=== PATIENT | female | born 1980 | race Two or more races ===

== ENCOUNTER → 2019-12-09 10:14 | Outpatient (BNVA) | payer OTHER, SELFPAY | PROVIDERS: Family Provider Nurse Practitioner; PCP Nurse Practitioner; Visit Provider Nurse Practitioner | DX: J30.89 Other allergic rhinitis (principal); G43.519 Persistent migraine aura without cerebral infarction, intractable, without status migrainosus | CPT/HCPCS: 80053; 84443 ==

== ENCOUNTER → 2019-12-19 07:29 | Outpatient (BNVA) | payer OTHER, SELFPAY | PROVIDERS: Family Provider Nurse Practitioner; PCP Nurse Practitioner; Visit Provider Nurse Practitioner Psychiatric/Mental Health | DX: F33.1 Major depressive disorder, recurrent, moderate (principal); F43.12 Post-traumatic stress disorder, chronic; F41.0 Panic disorder [episodic paroxysmal anxiety] | CPT/HCPCS: 99214 ==

== ENCOUNTER → 2020-01-14 07:40 | Outpatient (BNVA) | payer OTHER, SELFPAY | PROVIDERS: Family Provider Nurse Practitioner; PCP Nurse Practitioner; Visit Provider Nurse Practitioner Psychiatric/Mental Health | DX: F33.1 Major depressive disorder, recurrent, moderate (principal); F43.12 Post-traumatic stress disorder, chronic; F41.0 Panic disorder [episodic paroxysmal anxiety] | CPT/HCPCS: 99214 ==

== ENCOUNTER 2020-03-02 13:05 | Emergency (ER) | payer OTHER, SELFPAY ==
[2020-03-02 13:06] VITALS: BP 116/40; PULSE 74; RESP 18; TEMP 37.1; O2SAT 99; BMI 24.6
--- NOTE | 2020-03-02 13:19 | CTR_ITS ---
PROCEDURE INFORMATION: Exam: CT Head Without Contrast Exam date and time: 03/02/2020 1:21 PM Age: 40 years old Clinical indication: Pain; Headache; Patient HX: Headache x 5 days; Additional info: LANDA x 5 ays TECHNIQUE: Imaging protocol: Computed tomography of the head without contrast. Radiation optimization: All CT scans at this facility use at least one of these dose optimization techniques: automated exposure control; mA and/or kV adjustment per patient size (includes targeted exams where dose is matched to clinical indication); or iterative reconstruction. COMPARISON: CT head wo con* [id number] 03/15/2018 12:14 PM RADIATION DOSE METRICS: Total DLP (mGy-cm): 741.24 FINDINGS: Brain: Normal. No hemorrhage. Unremarkable white matter. No mass effect. Ventricles: No hydrocephalus or evidence of increased intracranial pressure. Bones/joints: Unremarkable. No acute fracture. Sinuses: Hypoplastic bilateral frontal sinuses, normal variant. Mastoid air cells: Visualized mastoid air cells are well aerated. Soft tissues: Unremarkable. CT/CT head wo con* [id number] IMPRESSION: No acute intracranial abnormality identified. Radiation Dose CTDIVOL = (mGy): DLP = 741.24 (mGy-cm)
--- NOTE | 2020-03-02 13:20 | ED_ITS ---
HPI - Headache General: Chief Complaint: Headache Stated Complaint: LANDA x5 days Time Seen by Provider: 03/02/20 13:06 History of Present Illness: HPI Narrative: Patient arrived via ambulance from [facility], [place] with a history of headache x5 days as nonrelenting. Patient has history of migraines which she is on Topamax for which usually works. Patient says she has been nauseous and balance problems since his headache started. Denies photophobia denies other problems MD elicited complaint: headache Pertinent past history: migraines Onset (ago): day(s) Onset description: suddenly Location: frontal Severity: severe Quality & Timing: throbbing and different than previous headaches Exacerbating factors: none Relieving factors: rest Context: occurred at rest Associated symptoms: Reports no associated symptoms and nausea; Deny chest pain, fever(s), rash or vomiting Treatments prior to arrival: acetaminophen and ibuprofen Review of Systems Const: Denies: fever(s), chills or body aches Eyes: Denies: change in vision or blurry vision ENMT: Denies: throat pain or nasal congestion Card: Denies: chest pain or dyspnea on exertion Resp: Denies: dyspnea, productive cough or non-productive cough GI: Reports: nausea; Denies: abdominal pain or vomiting Musc: Denies: extremity pain Skin/Breast: Denies: rash Neuro: Reports: headache(s) Psych: Denies: anxiety or depression Delbert/Lymph: Denies: easy bruising PFS ED PFSH: Medical History (Updated 03/02/20 @ 16:35 by UNIQUE Nguyen) Chronic peptic ulcer Chronic post-traumatic stress disorder Environmental and seasonal allergies Gastro-esophageal reflux disease without esophagitis Major depressive disorder, recurrent episode, moderate with anxious distress Migraine aura, persistent, intractable Panic disorder without agoraphobia Surgical History History of cholecystectomy (~1999) History of partial hysterectomy History of pelvic surgery due to adhesion History of right oophorectomy Family History Other Diabetes Heart disease Hypertension Social History Smoking and tobacco status: never smoked Second hand smoke exposure: No Smoking risk assessment/counseling performed?: No Alcohol intake: never Desire information about alcohol rehabilitation?: No Counseling given: No Desire information about substance/drug rehabilitation?: No Counseling given: No Adopted: No Caregiver/support person: No Lives independently: Yes Household members: spouse and children Housing: House Marital status: Current occupational status: employed Current occupation: [employer] [place] History of recent travel: No Current gender identity: Female Physical Exam Const: COMMON NORMALS: no acute distress, average body habitus, patient oriented x3 and alert ORIENTATION/CONSCIOUSNESS: Yes oriented to person HENMT: COMMON NORMALS: normocephalic HEAD & SCALP: normal to inspection and normocephalic FACE & SINUS: normal facial exam Eye: COMMON NORMALS: conjunctivae normal GENERAL EYE: appearance normal, both eyes and all related structures CONJUNCTIVA: Yes conjunctivae normal Neck/C-Spine: COMMON NORMALS: no meningeal signs and no JVD Chest: COMMONS NORMALS: normal inspection of the chest Resp: COMMON NORMALS: normal respiratory effort and clear to auscultation bilaterally AUSCULTATION: clear to auscultation bilaterally Cardio: COMMON NORMALS: no JVD, regular rate and regular rhythm RATE: regular rate RHYTHM: regular rhythm GI: COMMON NORMALS: Normal to inspection, nondistended, normoactive bowel sounds present Extremity: COMMON NORMALS: normal to inspection and full ROM Neuro: COMMON NORMALS: patient oriented x3 and CN's II-XII intact bilaterally SENSORIUM/ORIENTATION: Yes alert and Yes oriented to person MENINGEAL SIGNS: Yes no meningeal signs Course Vital Signs: Vital signs: Vital Signs Temperature 98.8 F 03/02/20 13:06 Pulse Rate 74 03/02/20 13:06 Respiratory Rate 18 03/02/20 13:06 Blood Pressure 116/40 03/02/20 13:06 Pulse Oximetry 99 03/02/20 13:06 MDM - Headache MDM Narrative: Medical decision making narrative: Patient most likely with migrainous type headache cluster headache A&R tension headache. Patient did not respond for a few medication gave her but the DHE has worked very well for her after 1 dose her head pain is down to 4. Patient is to follow-up with her clinic if this continues. Discharge Plan Discharge Patient Disposition: Home, Self-Care Clinical Impression: Headache Qualifiers: Headache type: cluster Headache chronicity pattern: episodic headache Intractability: intractable Qualified Code(s): G44.011 - Episodic cluster headache, intractable Condition: Stable Prescriptions: No Action topiramate 50 mg tablet 50 mg PO BID Qty: 180 RF: 1 albuterol sulfate [ProAir HFA] 90 mcg/actuation HFA aerosol inhaler 2 puff INHALATION Q4H PRN (Reason: shortness of breath or wheezing) Qty: 18 RF: 2 montelukast [Singulair] 10 mg tablet 10 mg PO DAILY Qty: 30 RF: 2 pantoprazole [Protonix] 40 mg tablet,delayed release (DR/EC) 40 mg PO BID RF: 0 lorazepam 0.5 mg tablet 0.5 mg PO TID PRN (Reason: anxiety) Qty: 90 RF: 3 quetiapine [Seroquel] 300 mg tablet 300 mg PO .bedtime Qty: 30 RF: 4 sertraline [Zoloft] 100 mg tablet 200 mg PO .morning Qty: 60 RF: 3 ondansetron HCl [Zofran] 4 mg tablet 4 mg PO Q8H PRN (Reason: nausea and vomiting) Qty: 7 RF: 0 Discharge Orders: Discharge Order (Routine); Ordered 03/02/20 Ordered By: Arjun Campo Referrals: Marko Wallace, DIRECTOR CUSTOM-C [Primary Care Provider] - Discharge Diet: Usual diet Discharge Activity: Increase activity as tolerated Patient Instructions: Cluster Headache (ED) Activity Restrictions/Additional Instructions: Follow-up with medical provider as directed. Return to the ER or your medical provider if condition worsens. Please read and understand discharge instructions. If any questions ask please. 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
[2020-03-02] MEDS: dexamethasone 4 mg/mL INJ 8 MG IVP (14:07)
[2020-03-02] MEDS: ondansetron 2 mg/ML SDV 2 mL 4 MG IVP ×2 (14:08→16:28)
[2020-03-02] MEDS: diphenhydrAMINE 50 mg/mL SDV 1mL IVP (14:08)
[2020-03-02] MEDS: dihydroergotamine 1 mg/mL Inj IVP (15:57)
--- NOTE | 2020-03-02 16:34 | PC.NURSE ---
0.5 mg given and LANDA went down to 4 will give the other 0.5 mg given
[2020-03-02 17:20] VITALS: BP 116/57; PULSE 70; RESP 18; O2SAT 98
== END 2020-03-02 17:21 | disposition home or self-care (01) ==
PROVIDERS: Emergency Provider Nurse Practitioner Family; PCP Nurse Practitioner
DX: G44.011 Episodic cluster headache, intractable (principal)
CPT/HCPCS: 12345; 70450; 96374; 96375; 96376; 99283; J0131; J1100; J1110; J1200; J2405

== ENCOUNTER → 2020-05-13 16:22 | Outpatient (BNVA) | payer OTHER, SELFPAY | PROVIDERS: PCP Nurse Practitioner; Visit Provider Nurse Practitioner Family | DX: G43.519 Persistent migraine aura without cerebral infarction, intractable, without status migrainosus (principal); M62.81 Muscle weakness (generalized) | CPT/HCPCS: 85025 ==

== ENCOUNTER 2020-05-25 13:40 | Emergency (ER) | payer OTHER, SELFPAY ==
[2020-05-25 13:43] VITALS: BP 146/70; PULSE 82; RESP 18; TEMP 36.2; O2SAT 100; BMI 24.0
--- NOTE | 2020-05-25 13:51 | W.ED.CHESTPA ---
HPI - Chest Pain General: Chief Complaint: Chest Pain Stated Complaint: cp Time Seen by Provider: 05/25/20 13:45 History of Present Illness: HPI narrative: 40-year-old female presents emergency room complaining of chest pain and left arm pain that she has had for the last 3 weeks. She also has some chest pains worse when she moves or takes a deep breath. She cannot recall any particular trauma. She states the chest pain and arm pain have gotten much worse the arm pain is particularly worse in the left arm in the last 2 days. She denies any fever sweats or chills. Pain is reproducible palpation along the anterior chest. MD complaint: chest pain Pertinent past history: asthma Onset (ago): week(s) (3) Timing of current episode: episodic and increasing Onset: during rest Pain location: left chest Pain radiation: left arm Severity: moderate Quality: aching Relieving factors: nothing Exacerbating factors: nothing Associated symptoms: Deny abdominal pain, diaphoresis, dyspnea, fever(s), leg edema, nausea, palpitations, sense of impending doom, syncope or vomiting Treatment prior to arrival: none Review of Systems Const: Denies: fever(s) or diaphoresis ENMT: Denies: throat pain, ear or mastoid pain, nasal discharge or nasal congestion Card: Denies: palpitations or syncope Resp: Denies: dyspnea GI: Denies: abdominal pain, nausea or vomiting : Denies: flank pain, difficulty voiding, dysuria, urinary frequency or urinary urgency Skin/Breast: Denies: rash or pruritus PFSH ED PFSH: Medical History Chronic peptic ulcer Chronic post-traumatic stress disorder Environmental and seasonal allergies Gastro-esophageal reflux disease without esophagitis Major depressive disorder, recurrent episode, moderate with anxious distress Migraine aura, persistent, intractable Panic disorder without agoraphobia Surgical History History of cholecystectomy (~1999) History of partial hysterectomy History of pelvic surgery due to adhesion History of right oophorectomy Family History Other Diabetes Heart disease Hypertension Social History Smoking and tobacco status: never smoked Second hand smoke exposure: No Smoking risk assessment/counseling performed?: No Alcohol intake: never Desire information about alcohol rehabilitation?: No Counseling given: No Desire information about substance/drug rehabilitation?: No Counseling given: No Adopted: No Caregiver/support person: No Lives independently: Yes Household members: spouse and children Housing: House Marital status: Current occupational status: employed Current occupation: [employer] [place] of recent travel: No Current gender identity: Female Physical Exam Const: COMMON NORMALS: no acute distress GENERAL APPEARANCE: cooperative and comfortable ORIENTATION/CONSCIOUSNESS: Yes awake, Yes oriented to person, Yes oriented to place and Yes oriented to time HENMT: COMMON NORMALS: normocephalic, atraumatic and hearing grossly normal bilaterally HEAD & SCALP: normocephalic and atraumatic Eye: COMMON NORMALS: Equal, round and reactive pupils present, EOMs intact bilaterally, conjunctivae normal and no scleral icterus CONJUNCTIVA: Yes conjunctivae normal PUPIL: Yes Equal, round and reactive pupils present Neck/C-Spine: COMMON NORMALS: no JVD Resp: COMMON NORMALS: normal respiratory effort, No retractions, No use of accessory muscles and clear to auscultation bilaterally AUSCULTATION: clear to auscultation bilaterally Cardio: COMMON NORMALS: no JVD, regular rate, regular rhythm and No murmurs present (Cardio) RATE: regular rate RHYTHM: regular rhythm GI: COMMON NORMALS: Soft to palpation and No hepatosplenomegaly present AUSCULTATION: Yes normoactive bowel sounds PALPATION: Yes Soft to palpation, No Tenderness to palpation present (GI), No Guarding due to palpation present (GI) and Yes No hepatosplenomegaly present Extremity: COMMON NORMALS: normal to inspection, capillary refill normal, no clubbing, cyanosis or edema, no calf tenderness and no pedal edema Neuro: SENSORIUM/ORIENTATION: Yes oriented to person, Yes oriented to place and Yes oriented to time Skin: COMMON NORMALS: no rashes or lesions noted GENERAL SKIN EXAM: no rashes or lesions noted Course Vital Signs: Vital signs: Vital Signs Temperature 97.2 F L 05/25/20 13:43 Pulse Rate 72 05/25/20 15:16 Respiratory Rate 16 05/25/20 15:16 Blood Pressure 118/70 05/25/20 15:16 Pulse Oximetry 100 05/25/20 15:16 MDM - Chest Pain MDM Narrative: Medical decision making narrative: Patient has had the symptoms for 3 weeks but sister is no EKG changes nothing on chest x-ray and normal troponin it is reproducible with palpation along the right side of the sternum. We will go ahead and get her set up for a sestamibi stress test. Encourage [id number] Tylenol or ibuprofen as needed for chest wall discomfort and follow-up with her primary care after the stress test is completed can return to the emergency room as further problems. Lab Data: Labs: Lab Results 05/25/20 05/25/20 05/25/20 Range/Units 14:10 14:10 14:10 WBC 8.6 (4.0-10.0) 10^3/ uL RBC 3.41 L (4.1-5.3) 10^6/u L Hgb 10.8 L (11.5-15.3) g/dL Hct 33.0 L (37.0-47.0) % MCV 96.8 (81-99) fL MCH 31.7 (28.0-34.0) pg MCHC 32.7 (30.0-36.0) g/dL RDW 13.6 (12.1-15.1) % Plt Count 287 (130-400) 10^3/c mm MPV 9.3 (7.4-10.4) fL Neut % (Auto) 63.0 % Lymph % (Auto) 30.2 % Mcminn % (Auto) 4.7 % Eos % (Auto) 1.6 % Baso % (Auto) 0.3 % Neut # (Auto) 5.43 (1.8-7.7) 10^3/u L Lymph # (Auto) 2.6 (0.8-4.8) 10^3/u L Mcminn # (Auto) 0.4 (0.2-0.9) 10^3/u L Eos # (Auto) 0.1 (0.0-0.8) 10^3/u L Baso # (Auto) 0.0 (0.0-0.1) 10^3/u L Nucleated RBC % (a uto) 0 % Nucleated RBCs # 0.0 /100WBC Sodium 139 (136-145) mmol/L Potassium 3.6 (3.5-5.1) mmol/L Chloride 112 H (98-107) mmol/L Carbon Dioxide 17 L (22-29) mmol/L Anion Gap 13.6 (5-19) BUN 17 (6-20) mg/dL Creatinine 0.7 (0.5-0.9) mg/dL GFR Calculation 92.2 (90-130) mL/min Glucose 98 (65-115) mg/dL Calculated Osmolal ity 290 (285-295) mOsm/k g Calcium 8.3 L (8.5-10.5) mg/dL Troponin T Baselin e 6 (0-10) ng/L Discharge Plan Discharge Patient Disposition: Home Clinical Impression: Atypical chest pain, Chest wall pain Condition: Stable Prescriptions: New diclofenac sodium 75 mg tablet,delayed release (DR/EC) 75 mg PO Q12H PRN (Reason: pain) Qty: 20 RF: 0 No Action pantoprazole [Protonix] 40 mg tablet,delayed release (DR/EC) 40 mg PO BID RF: 0 lorazepam 0.5 mg tablet 0.5 mg PO TID PRN (Reason: anxiety) Qty: 90 RF: 3 montelukast [Singulair] 10 mg tablet 10 mg PO DAILY Qty: 30 RF: 2 albuterol sulfate [ProAir HFA] 90 mcg/actuation HFA aerosol inhaler 2 puff INHALATION Q4H PRN (Reason: shortness of breath or wheezing) Qty: 18 RF: 2 ondansetron HCl [Zofran] 4 mg tablet 4 mg PO Q6H PRN (Reason: nausea and vomiting) Qty: 15 RF: 0 sumatriptan succinate 50 mg tablet See Rx Instructions PO .COMPLEX Qty: 12 RF: 0 topiramate 100 mg tablet 100 mg PO BID Qty: 60 RF: 2 meclizine 12.5 mg tablet 12.5 mg PO TID PRN (Reason: dizziness or nausea) Qty: 90 RF: 2 hfcvxgvhcj-clnvmmfbzjrkn-gwlw [Esgic] 50-325-40 mg tablet 1 tab PO Q6H PRN (Reason: pain) Qty: 30 RF: 0 Seroquel 300 mg tablet 300 mg PO BEDTIME RF: 0 Zoloft 100 mg tablet 200 mg PO DAILY RF: 0 Discharge Orders: Discharge Order (Routine); Ordered 05/25/20 Ordered By: Josue Stallings Referrals: Marko Wallace, YANIC [Primary Care Provider] - Activity Restrictions/Additional Instructions: Follow-up with your primary care doctor. Case management will call to set up a stress test for you. 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
[2020-05-25 14:00] VITALS: O2SAT 100
--- NOTE | 2020-05-25 14:00 | ECG_ITS ---
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 Measurements Intervals Andes Rate: 72 P: 57 AR: 145 QRS: 39 QRSD: 97 T: 44 QT: 366 QTc: 402 Interpretive Statements SINUS RHYTHM LOW QRS VOLTAGE IN PRECORDIAL LEADS [QRS DEFLECTION < 1.0 mV IN CHEST LEADS] INCOMPLETE RIGHT BUNDLE BRANCH BLOCK [90+ ms QRS DURATION, TERMINAL R IN V1/V2, 40+ ms S IN I/aVL/V4/V5/V6] INTERPRETATION BASED ON A DEFAULT AGE OF 40 YEARS Compared to ECG 06/01/2018 17:07:38 No significant changes Electronically Signed On 05-25-2020 19:00:37 CDT by Simeon French M.D. [email or web address]/store/[id number] jorge a
--- NOTE | 2020-05-25 14:01 | XRR_ITS ---
PROCEDURE INFORMATION: Exam: XR Chest, 1 View Exam date and time: 05/25/2020 2:10 PM Age: 40 years old Clinical indication: Cough and dyspnea; Additional info: Dyspnea/cough TECHNIQUE: Imaging protocol: XR of the chest Views: 1 view. COMPARISON: CR Chest 1 [place] [id number] 06/01/2018 2:20 PM FINDINGS: Lungs: Unremarkable. No consolidation. Pleural space: Unremarkable. No pleural effusion. No pneumothorax. Heart/Mediastinum: Unremarkable. No cardiomegaly. Bones/joints: Unremarkable. XR/XR chest 1V portable [id number] IMPRESSION: No acute findings.
[2020-05-25 14:17] LABS: Basophils % 0.3 %; Eosinophils # 0.1 10^3/uL (0.0-0.8); Eosinophils % 1.6 %; Hemoglobin 10.8 g/dL (11.5-15.3); Lymphocytes # 2.6 10^3/uL (0.8-4.8); Lymphocytes % 30.2 %; Mean Corpuscular HGB Conc 32.7 g/dL (30.0-36.0); Mean Corpuscular Hemoglobin 31.7 pg (28.0-34.0); Mean Corpuscular Volume 96.8 fL (81-99); Mean Platelet Volume 9.3 fL (7.4-10.4); Monocytes # 0.4 10^3/uL (0.2-0.9); Monocytes % 4.7 %; Neutrophils # 5.43 10^3/uL (1.8-7.7); Nucleated Red Blood Cells % 0 %; Platelet Count 287 10^3/cmm (130-400); Red Blood Count 3.41 10^6/uL (4.1-5.3); Red Cell Distribution Width 13.6 % (12.1-15.1); White Blood Count 8.6 10^3/uL (4.0-10.0)
[2020-05-25 14:37] LABS: Anion Gap 13.6 (5-19); Blood Urea Nitrogen 17 mg/dL (6-20); Calcium 8.3 mg/dL (8.5-10.5); Carbon Dioxide 17 mmol/L (22-29); Chloride 112 mmol/L (98-107); Glomerular Filtration Rate 92.2 mL/min (90-130); Glucose 98 mg/dL (65-115); Osmolality Calculated 290 mOsm/kg (285-295); Potassium 3.6 mmol/L (3.5-5.1); Sodium 139 mmol/L (136-145)
[2020-05-25 14:38] LABS: Troponin(5th) Baseline 6 ng/L (0-10)
[2020-05-25 15:16] VITALS: BP 118/70; PULSE 72; RESP 16; O2SAT 100
--- NOTE | 2020-05-27 10:13 | DCPLANNER ---
document manager had message to schedule an outpatient stress test for patient. document manager faxed order for stress test to centralized scheduling. Patient has an outpatient stress test scheduled for Monday, June 15, 2020 at 9:15. Centralized scheduling will call patient with appointment information.
--- NOTE | 2020-06-25 07:55 | DCPLANNER ---
Patient had an outpatient stress test scheduled for 06.15.20 for an outpatient stress test - patient did attend appointment.
== END 2020-05-25 15:16 | disposition home or self-care (01) ==
PROVIDERS: Emergency Provider Family Medicine; PCP Nurse Practitioner
DX: R07.89 Other chest pain (principal)
CPT/HCPCS: 12345; 36415; 71045; 80048; 84484; 85025; 93005; 99282

== ENCOUNTER → 2020-06-04 13:00 | Outpatient (BNVA) | payer OTHER, SELFPAY | PROVIDERS: PCP Nurse Practitioner; Visit Provider Specialist | DX: G43.519 Persistent migraine aura without cerebral infarction, intractable, without status migrainosus (principal); G43.711 Chronic migraine without aura, intractable, with status migrainosus; K27.7 Chronic peptic ulcer, site unspecified, without hemorrhage or perforation; F43.12 Post-traumatic stress disorder, chronic; R63.4 Abnormal weight loss | CPT/HCPCS: 99204 ==

== ENCOUNTER → 2020-06-05 10:29 | Outpatient (BNVA) | payer OTHER, SELFPAY | PROVIDERS: PCP Nurse Practitioner; Visit Provider Specialist | DX: G43.711 Chronic migraine without aura, intractable, with status migrainosus (principal); G43.519 Persistent migraine aura without cerebral infarction, intractable, without status migrainosus | CPT/HCPCS: 96374; 96375; 99213; J1110; J1200; J2405 ==

== ENCOUNTER 2020-06-17 08:29 | Outpatient (CLI) | payer OTHER, SELFPAY ==
--- NOTE | 2020-06-17 08:45 | MR_ITS ---
WS: [id number] MRI BRAIN WITHOUT CONTRAST HISTORY: G43.519 Persistent migraine aura without cerebral infarct... COMPARISON: CT head 03/02/2020. TECHNIQUE: Diffusion imaging, multiplanar T1, T2 and FLAIR imaging obtained. No evidence for acute infarct or hemorrhage. [place]-white matter differentiation is normal. Partial obs curation of the posterior LEFT brain and skull from a magnetic artifact. No remote or acute infarcts are volume loss. Ventricles and extra-axial spaces are normal. No inferior displacement of cerebellar tonsils. The sella turcica and pituitary gland are unremarkabl e. Posterior fossa is also unremarkable. Dural venous sinuses and [place] demonstrate no abnormality on this unenhanced studies. Paranasal sinuses: Clear. Mastoid air cells: Normal. Calvarium and scalp: Intact. MR/MR head wo con* [id number] IMPRESSION: 1. Unremarkable noncontrast MRI brain.
--- NOTE | 2020-06-17 09:30 | MR_ITS ---
WS: [id number] MRI CERVICAL SPINE HISTORY: R20.0 Anesthesia of skin COMPARISON: None available. Straightening of the normal cervical lordosis with mild RIGHT convex curvature. Signal within the cervical cord is normal. Visualized posterior fossa is unremarkable. Craniocervical junction, C1 and C2 relationship, odontoid process and soft tissues are normal. C2-C3: Normal. C3-C4: Mild osteophytic ridging without stenosis. C4-C5: Shallow central disc protrusion with annular fissure. Near contact on the ventral thecal sac w ith no displacement. Small bilateral foraminal osteophytes. Minimal foraminal narrowing. C5-C6: Shallow central disc protrusion with annular fissure. Osteophytic ridging around the vertebral bodies. There is at least moderate LEFT foraminal stenosis and mild on the RIGHT. C6-C7: Mild osteophytic ridging. No stenosis. C7-T1: Normal. Paraspinal soft tissue are normal. MR/MR cervical spin wo con* [id number] IMPRESSION: 1. Mild degenerative disc disease and RIGHT convex curvature. 2. Moderate LEFT foraminal stenosis at C5-6 due to disc osteophyte disease. 3. Mild central and bilateral foraminal stenosis at C4-5. 4. Shallow central disc protrusions at C4-5 and C5-6.
== END 2020-06-17 08:30 | disposition home or self-care (01) ==
LOC: RADSHAW 08:31
PROVIDERS: PCP Nurse Practitioner; Visit Provider Specialist
DX: G43.519 Persistent migraine aura without cerebral infarction, intractable, without status migrainosus (principal); R20.0 Anesthesia of skin; R20.2 Paresthesia of skin; M48.02 Spinal stenosis, cervical region; M25.78 Osteophyte, vertebrae
CPT/HCPCS: 70551; 72141; 82103; 82150; 82607; 82728; 82746; 83540; 83550; 83921; 85025

== ENCOUNTER 2020-06-18 10:40 | Outpatient (CLI) | payer OTHER, SELFPAY ==
--- NOTE | 2020-06-18 11:01 | ECG_ITS ---
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 Interpretive Statements NAME OF STUDY: LEXISCAN SESTAMIBI STRESS TEST INDICATION: Chest Pain PROCEDURE: At the baseline, the blood pressure was 123/77 mm Hg with a heart rate of 58 bpm. The electrocardiogram showed sinus bradycardia, normal axis and normal ST-T's. The Lexiscan was infused over a period of 20 seconds. A total of 0.4 milligrams of Lexiscan was infused. The stress phase was continued for a total of 5 minutes. Heart rate at the end of the stress phase was 70 bpm with a blood pressure of 126/81 mm Hg. The EKG at the peak infusion revealed no significant ST-T wave changes. Sestamibi was injected 20 seconds after the Lexiscan infusion. Blood pressure at the end of the recovery phase was 116/77 mm Hg with a heart rate of 72 beats per minute. CONCLUSION: 1. Normal EKG response to LexiScan infusion. 2. No LexiScan induced chest pain or cardiac arrhythmia. 3. Normal blood pressure and heart rate response. 4. Sestamibi/sestamibi perfusion scan pending; see separate report. Electronically Signed On 06-18-2020 20:24:58 CDT by Stacy Cuellar M.D. [id number]
--- NOTE | 2020-06-18 11:02 | NMCV_ITS ---
NM jina perf SPECT r/s* [id number] Christine Menard Age: 40 Gender: F : 1980 Exam Date: 06/18/2020 11:02 Ordering Phys: Josue Stallings DO Technologist: GEOVANNY Cueto Exam Location: [facility] Indications: Chest pain STRESS TEST Please [facility] for full findings IMAGE PROTOCOL Rest/Stress 1 Lexiscan Day Radiopharmaceutical Dose (mCi) Administration Site Administered by Rest: Tc-99m 10.9 IV GEOVANNY Dominguez Sestamibi Stress:Tc-99m 32.6 IV GEOVANNY Cueto Sestamiliban Rest: 18-Jun-2020 60 Discovery 630 Stress: 18-Jun-2020 45 Discovery 630 0.4mg Lexiscan. Images obtained in supine and prone position. SPECT RESULTS Technical Quality: Good Raw Data Analysis: Subdiaphragmatic activity Image Corrections: No attenuation or motion correction applied Summed Stress Score: 0 Summed Rest Score: 0 Summed Difference Score: 0 PERFUSION FINDINGS SPECT images demonstrate homogeneous tracer distribution throughout the myocardium. Subdiaphragmatic attenuation artifact noted. FUNCTIONAL RESULTS (calculated via Gated SPECT) Stress Image LV EF (%): 65 Stress EDV (mL):66 TID: 0.97 Stress ESV (mL):23 FUNCTIONAL FINDINGS: The left ventricle is normal in size. Transient Ischemia Dilatation of 0.97. There is normal left ventricular systolic function. The left ventricular ejection fraction is normal with a value of 65%. There is normal left ventricular wall thickening. Normal end diastoic and end systolic function. IMPRESSIONS 1. Myocardial perfusion imaging is normal. 2. Overall left ventricular systolic function is normal without regional wall motion abnormalities. 3. The left ventricular ejection fraction is normal with a value of 65%. 4 This study suggests a low likelihood of angiographically significant coronary artery disease. Stacy Cuellar MD (Electronically Signed) Final Date: 19 June 2020 20:08 S
[2020-06-18 11:11] VITALS: BMI 23.6
[2020-06-18 13:17] VITALS: BP 116/77; PULSE 72
== END 2020-06-18 10:41 | disposition home or self-care (01) ==
LOC: CDL 10:44
PROVIDERS: PCP Nurse Practitioner; Visit Provider Family Medicine
DX: R07.9 Chest pain, unspecified (principal)
CPT/HCPCS: 78452; 93017; A9500; J2785

== ENCOUNTER → 2020-06-23 15:02 | Outpatient (BNVA) | payer OTHER, SELFPAY | PROVIDERS: PCP Nurse Practitioner; Visit Provider Internal Medicine | DX: Z20.828 Contact with and (suspected) exposure to other viral communicable diseases (principal) | CPT/HCPCS: 87635 ==

== ENCOUNTER 2020-06-29 08:12 | Day surgery (SDC) | payer OTHER, SELFPAY ==
[2020-06-23 12:25] VITALS: BMI 23.6
[2020-06-29 08:25] VITALS: BP 129/78; PULSE 89; RESP 18; TEMP 36.8; O2SAT 97
--- NOTE | 2020-06-29 08:34 | ANES.PREANE2 ---
Pre-Anesthetic Assessment Pre-Anesthetic Assessment: Height/Weight: Height 1.52 m Weight 54.885 kg Temp Pulse Resp BP Pulse Ox 98.2 F 89 18 129/78 97 06/29/20 08:25 06/29/20 08:25 06/29/20 08:25 06/29/20 08:25 06/29/20 08:25 Preop Diagnosis: anemia Proposed Procedure: Operation Date: 06/29/20 09:00 Proposed Procedures p EGD 89011/48827/d50.9/k63.4(Not Applicable) - Salvatore Scott MD s Colonoscopy(Not Applicable) - Salvatore Scott MD Was Beta Rosie taken within 24 hours: N/A Last intake: Intake Last Liquid Date 06/28/20 Last Liquid Time 20:00 Last Solid Date 06/27/20 Last Solid Time 18:00 Last Intake: 00:00 Social: Social History: No alcohol and No tobacco Airway: Submandibular: WNL Cervical ROM: WNL MP: 1 Pulmonary: Pulmonary: None reported Comments: seasonal allergies has inhaler to use as needed CV/HEM: CV/HEM: Anemia, Angina (Stable) (stress test negative 3 weeks ago ) and Arrythmia (SVT history ) : : None reported Hepatic: Hepatic: None reported GI: GI: GERD Metabolic: Metabolic: None reported Musc/skel: Musc/skel: None reported Neuropsych: Neuropsych: Anxiety (PTSD ) and Depression Anesthetic Plan: ASA status: 2 Anesthesia: Anesthesia Evaluation and MAC PFSH Anesthesia PFSH: Medical History Chronic peptic ulcer Chronic post-traumatic stress disorder Environmental and seasonal allergies Gastro-esophageal reflux disease without esophagitis Major depressive disorder, recurrent episode, moderate with anxious distress Migraine aura, persistent, intractable Panic disorder without agoraphobia Surgical History History of cholecystectomy (~1999) History of partial hysterectomy History of pelvic surgery due to adhesion History of right oophorectomy Family History Other Diabetes Heart disease Hypertension Social History Smoking and tobacco status: never smoked Second hand smoke exposure: No Smoking risk assessment/counseling performed?: No Alcohol intake: never Desire information about alcohol rehabilitation?: No Counseling given: No Desire information about substance/drug rehabilitation?: No Counseling given: No Adopted: No Caregiver/support person: No Lives independently: Yes Household members: spouse and children Housing: House Marital status: Current occupational status: employed Current occupation: [employer] – [place] History of recent travel: No Current gender identity: Female Data Anesthesia Cardiac Studies: No Data to Display
[2020-06-29] MEDS: sodium chloride 0.9% 1,000 ML 30 ML IV (08:37)
--- NOTE | 2020-06-29 09:11 | W.PM.OPSUD ---
Surgery/Procedure H&P Update DATE OF PROCEDURE: June 29, 2020 DATE H&P PERFORMED: 06/08/20 PREOP DIAGNOSIS: anemia PLANNED PROCEDURE: Operation Date: 06/29/20 09:00 Proposed Procedures p EGD [id number]/d50.9/k63.4(Not Applicable) - Salvatore Scott MD s Colonoscopy(Not Applicable) - Salvatore Scott MD
[2020-06-29 10:10] VITALS: BP 89/48; PULSE 68; RESP 18; TEMP 36.1; O2SAT 96
[2020-06-29] MEDS: ondansetron 2 mg/ML SDV 2 mL 4 MG IVP (10:19)
[2020-06-29 10:50] VITALS: BP 116/78; PULSE 69; RESP 18; O2SAT 96
--- NOTE | 2020-06-29 11:35 | ANE.PACU2 ---
Inpatient post-anesthesia follow up: Airway intact: Yes Vital signs: Temperature 97 F Pulse Rate 69 Respiratory Rate 18 Blood Pressure 116/78 Pulse Oximetry 96 Oxygen Delivery Me thod Room Air Oxygen Flow Rate Fraction of Inspir ed Oxygen Hydration adequate: Yes Nausea and vomiting: No Pain level: 1 Mental status: Baseline
[2020-06-30 08:16] LABS: H. Pylori / CLO Test Negative
== END 2020-06-29 11:35 | disposition home or self-care (01) ==
PROVIDERS: PCP Nurse Practitioner; Visit Provider Internal Medicine
PROC: 0DJ08ZZ Inspection of Upper Intestinal Tract, Via Natural or Artificial Opening Endoscopic (ICD-10-PCS; CPT 43235; principal; 2020-06-29 09:00)
PROC: 0DJD8ZZ Inspection of Lower Intestinal Tract, Via Natural or Artificial Opening Endoscopic (ICD-10-PCS; CPT 45378; 2020-06-29 09:00)
DX: D50.9 Iron deficiency anemia, unspecified (principal); R63.4 Abnormal weight loss; Z68.23 Body mass index [BMI] 23.0-23.9, adult; K25.7 Chronic gastric ulcer without hemorrhage or perforation; F41.9 Anxiety disorder, unspecified; F32.9 Major depressive disorder, single episode, unspecified; F43.10 Post-traumatic stress disorder, unspecified; K21.9 Gastro-esophageal reflux disease without esophagitis
CPT/HCPCS: 12345; 43239; 45378; 87077; J2405; J2704; J3010; J7030

== ENCOUNTER → 2020-07-27 08:27 | Outpatient (BNVA) | payer OTHER, SELFPAY | PROVIDERS: PCP Nurse Practitioner; Visit Provider Nurse Practitioner Psychiatric/Mental Health | DX: F33.1 Major depressive disorder, recurrent, moderate (principal); F43.12 Post-traumatic stress disorder, chronic; F41.0 Panic disorder [episodic paroxysmal anxiety]; Z63.4 Disappearance and death of family member | CPT/HCPCS: 99214 ==

== ENCOUNTER → 2020-07-29 09:27 | Outpatient (BNVA) | payer OTHER, SELFPAY | PROVIDERS: PCP Nurse Practitioner; Visit Provider Specialist | DX: G43.711 Chronic migraine without aura, intractable, with status migrainosus (principal); K27.7 Chronic peptic ulcer, site unspecified, without hemorrhage or perforation; M50.90 Cervical disc disorder, unspecified, unspecified cervical region; F43.12 Post-traumatic stress disorder, chronic | CPT/HCPCS: 99214 ==

== ENCOUNTER → 2020-08-24 08:18 | Outpatient (BNVA) | payer OTHER, SELFPAY | PROVIDERS: PCP Nurse Practitioner; Visit Provider Nurse Practitioner Psychiatric/Mental Health | DX: F33.1 Major depressive disorder, recurrent, moderate (principal); F43.12 Post-traumatic stress disorder, chronic; F41.0 Panic disorder [episodic paroxysmal anxiety]; Z63.4 Disappearance and death of family member | CPT/HCPCS: 99214 ==

== ENCOUNTER → 2020-09-07 08:45 | Outpatient (BNVA) | payer OTHER, SELFPAY | PROVIDERS: PCP Nurse Practitioner; Visit Provider Counselor Professional | DX: Z63.4 Disappearance and death of family member (principal); F33.1 Major depressive disorder, recurrent, moderate; F43.12 Post-traumatic stress disorder, chronic; F41.0 Panic disorder [episodic paroxysmal anxiety] | CPT/HCPCS: 90834 ==

== ENCOUNTER → 2020-09-24 08:23 | Outpatient (BNVA) | payer OTHER, SELFPAY | PROVIDERS: PCP Nurse Practitioner; Visit Provider Nurse Practitioner Psychiatric/Mental Health | DX: F33.1 Major depressive disorder, recurrent, moderate (principal); F43.12 Post-traumatic stress disorder, chronic; F41.0 Panic disorder [episodic paroxysmal anxiety]; Z63.4 Disappearance and death of family member | CPT/HCPCS: 99214 ==

== ENCOUNTER → 2020-10-08 07:48 | Outpatient (BNVA) | payer OTHER, SELFPAY | PROVIDERS: PCP Nurse Practitioner; Visit Provider Nurse Practitioner Psychiatric/Mental Health | DX: F33.1 Major depressive disorder, recurrent, moderate (principal); F43.12 Post-traumatic stress disorder, chronic; F41.0 Panic disorder [episodic paroxysmal anxiety]; Z63.4 Disappearance and death of family member | CPT/HCPCS: 80053; 99214 ==

== ENCOUNTER → 2020-10-08 09:19 | Outpatient (BNVA) | payer SELFPAY | PROVIDERS: PCP Nurse Practitioner; Visit Provider Nurse Practitioner Family | DX: K59.00 Constipation, unspecified (principal); R10.9 Unspecified abdominal pain; R22.2 Localized swelling, mass and lump, trunk | CPT/HCPCS: 74018; 85025 ==

== ENCOUNTER → 2020-10-15 09:02 | Outpatient (BNVA) | payer OTHER, SELFPAY | PROVIDERS: PCP Nurse Practitioner; Visit Provider Nurse Practitioner Psychiatric/Mental Health | DX: Z63.4 Disappearance and death of family member (principal); F33.1 Major depressive disorder, recurrent, moderate; F43.12 Post-traumatic stress disorder, chronic; F41.0 Panic disorder [episodic paroxysmal anxiety] | CPT/HCPCS: 99214 ==

== ENCOUNTER 2020-11-04 08:39 | Outpatient (CLI) | payer OTHER, SELFPAY ==
--- NOTE | 2020-11-04 08:45 | US_ITS ---
WS: [id number] ULTRASOUND SOFT TISSUES LEFT flank. HISTORY: R22.2 - Localized swelling, mass and lump, trunk COMPARISON: None available. TECHNIQUE: 2-D and color Doppler imaging is submitted. Nearly isoechoic elongated mass with in the soft tissues of the posterior LEFT back measures 4.0 x 1. 4 cm. No increased vascularity. This is most consistent with a benign lipoma. US/US soft tissue/extremity 59999 IMPRESSION: Palpable area corresponds to a nearly isoechoic mass to the adjacent soft tiss ue. This is most consistent with a lipoma.
== END 2020-11-04 08:40 | disposition home or self-care (01) ==
LOC: US 08:41
PROVIDERS: PCP Nurse Practitioner; Visit Provider Nurse Practitioner Family
DX: R22.2 Localized swelling, mass and lump, trunk (principal)
CPT/HCPCS: 76882

== ENCOUNTER 2020-11-06 23:00 | Emergency (ER) | payer OTHER, SELFPAY ==
[2020-11-06 23:11] VITALS: BP 138/60; PULSE 79; RESP 17; TEMP 36.4; O2SAT 99; BMI 24.2
--- NOTE | 2020-11-06 23:18 | ED_ITS ---
HPI - Abdominal Pain General: Chief Complaint: Abdominal Pain Stated Complaint: LLQ ABD PAIN Time Seen by Provider: 11/06/20 23:18 Source: patient Mode of arrival: ambulatory Limitations: no limitations History of Present Illness: HPI narrative: 40-year-old female comes in with left lower quadrant abdominal pain. Patient has a history of constipation. Patient reports for the last 2 to 3 days she is having worsening pain and discomfort to the left lower quadrant. Patient has to hold her belly even when she has to pee. Patient appears in moderate discomfort. Patient appears well. MD elicited complaint: abdominal pain Pertinent past history: constipation Review of Systems General: Reports: 10 or more systems reviewed and unremarkable except in HPI and below GI: Reports: abdominal pain PFSH ED PFSH: Medical History Bereavement Mother Sep 03, 2017. Chronic peptic ulcer Chronic post-traumatic stress disorder Environmental and seasonal allergies Gastro-esophageal reflux disease without esophagitis Major depressive disorder, recurrent episode, moderate with anxious distress Migraine aura, persistent, intractable Panic disorder without agoraphobia Surgical History History of cholecystectomy (~1999) History of partial hysterectomy History of pelvic surgery due to adhesion History of right oophorectomy Family History Other Diabetes Heart disease Hypertension Social History Smoking and tobacco status: never smoked Second hand smoke exposure: No Smoking risk assessment/counseling performed?: No Alcohol intake: never Desire information about alcohol rehabilitation?: No Counseling given: No Desire information about substance/drug rehabilitation?: No Counseling given: No Adopted: No Caregiver/support person: No Lives independently: Yes Household members: spouse and children Housing: House Marital status: Current occupational status: employed Current occupation: [employer] [place] History of recent travel: No Current gender identity: Female Physical Exam Const: COMMON NORMALS: no acute distress and patient oriented x3 GENERAL APPEARANCE: cooperative HENMT: COMMON NORMALS: normocephalic and Normal external nose present HEAD & SCALP: normal to inspection and normocephalic NOSE: Normal external nose present MOUTH: Normal oral and palatal mucosa present Eye: GENERAL EYE: appearance normal, both eyes and all related structures Neck/C-Spine: COMMON NORMALS: full ROM Chest: COMMONS NORMALS: normal inspection of the chest Resp: COMMON NORMALS: normal respiratory effort EFFORT & INSPECTION: Yes able to speak in complete sentences Cardio: COMMON NORMALS: regular rate and regular rhythm RATE: regular rate RHYTHM: regular rhythm GI: COMMON NORMALS: Soft to palpation PALPATION: Yes Soft to palpation and Yes Tenderness to palpation present (GI) Details: LLQ : COMMON NORMALS: Yes no CVA tenderness BLADDER/KIDNEY EXAM: Yes no CVA tenderness Back/Pelvis: COMMON NORMALS: no CVA tenderness and thoracic and lumbar spine normal to inspection Extremity: COMMON NORMALS: normal to inspection Neuro: COMMON NORMALS: patient oriented x3 and moves all extremities Psych: COMMON NORMALS: mental status grossly normal and cooperative Skin: COMMON NORMALS: no rashes or lesions noted GENERAL SKIN EXAM: no rashes or lesions noted Course Vital Signs: Vital signs: Vital Signs Temperature 97.5 F L 11/06/20 23:11 Pulse Rate 67 11/07/20 00:10 Respiratory Rate 18 11/07/20 00:10 Blood Pressure 139/82 11/07/20 00:10 Pulse Oximetry 100 11/07/20 00:10 MDM - Abdominal Pain MDM Narrative: Medical decision making narrative: Patient comes in today with complaints of left lower quadrant abdominal pain. Patient appears well. Patient appears no acute distress. Patient has complaints of constipation. Patient came in tonight due to increasing discomfort and pain. On exam patient's abdomen soft with decreased bowel sounds throughout. Patient has tenderness in the left lower quadrant. Vital signs are normal. Skin is warm and dry. Differential diagnosis includes not limited to diverticulitis, bowel obstruction, constipation. Laboratory values were unremarkable. Urinalysis was clear. CT scan noted significant constipation. Reviewed exam with patient with recommendations for treatment and follow-up. Recommended cephalexin 500, 3 times a day for the next 7 days to assist with peristalsis and to cover for proctitis that may be secondary to constipation. Patient reports understanding of care plan and need for follow-up or return to the ER. Lab Data: Labs: Lab Results 11/06/20 11/06/20 11/06/20 Range/Units 23:30 23:30 23:30 WBC 10.3 H (4.0-10.0) 10^3/ uL RBC 3.81 L (4.1-5.3) 10^6/u L Hgb 12.4 (11.5-15.3) g/dL Hct 37.7 (37.0-47.0) % MCV 99.0 (81-99) fL MCH 32.5 (28.0-34.0) pg MCHC 32.9 (30.0-36.0) g/dL RDW 12.4 (12.1-15.1) % Plt Count 321 (130-400) 10^3/c mm MPV 9.7 (7.4-10.4) fL Neut % (Auto) 55.4 % Lymph % (Auto) 37.5 % [place] % (Auto) 4.1 % Eos % (Auto) 2.3 % Baso % (Auto) 0.5 % Neut # (Auto) 5.70 (1.8-7.7) 10^3/u L Lymph # (Auto) 3.9 (0.8-4.8) 10^3/u L [place] # (Auto) 0.4 (0.2-0.9) 10^3/u L Eos # (Auto) 0.2 (0.0-0.8) 10^3/u L Baso # (Auto) 0.1 (0.0-0.1) 10^3/u L Nucleated RBC % (a uto) 0 % Nucleated RBCs # 0.0 /100WBC Sodium 137 (136-145) mmol/L Potassium 3.5 (3.5-5.1) mmol/L Chloride 105 (98-107) mmol/L Carbon Dioxide 21 L (22-29) mmol/L Anion Gap 14.5 (5-19) BUN 13 (6-20) mg/dL Creatinine 0.7 (0.5-0.9) mg/dL GFR Calculation 92.2 (90-130) mL/min Glucose 88 (65-115) mg/dL Calculated Osmolal ity 284 L (285-295) mOsm/k g Calcium 8.8 (8.5-10.5) mg/dL Total Bilirubin 0.2 (0.15-1.2) mg/dL AST 15 (0-32) U/L ALT 16 (0-33) U/L Alkaline Phosphata se 69 (35-105) IU/L Total Protein 7.4 (6.6-8.7) g/dL Albumin 4.5 (3.5-5.2) g/dL Globulin 2.9 (1.3-4.6) g/dL Lipase 20 (13-60) U/L Urine Color Yellow (Yellow) Urine Appearance Clear (CLEAR) Urine pH 7 (5-7) Ur Specific Gravit y 1.005 (1.005-1.030) Urine Protein Neg (Negative) Urine Glucose (UA) Norm (Normal) Urine Ketones Negative (Negative) Urine Blood Neg (Negative) Urine Nitrate Negative (Negative) Urine Bilirubin Neg (Negative) Urine Urobilinogen Norm (Negative) mg/dL Ur Leukocyte Cristy ase Negative (Negative) Discharge Plan Discharge Patient Disposition: Home Clinical Impression: Idiopathic proctitis Constipation Qualifiers: Constipation type: unspecified constipation type Qualified Code(s): K59.00 - Constipation, unspecified Condition: Stable Prescriptions: New cephalexin 500 mg capsule 500 mg PO TID 7 Days Qty: 21 RF: 0 No Action montelukast [Singulair] 10 mg tablet 10 mg PO DAILY Qty: 30 RF: 2 albuterol sulfate [ProAir HFA] 90 mcg/actuation HFA aerosol inhaler 2 puff INHALATION Q4H PRN (Reason: shortness of breath or wheezing) Qty: 18 RF: 2 venlafaxine [Effexor XR] 37.5 mg capsule,extended release 24hr 37.5 mg PO QAM Qty: 30 RF: 1 meclizine 12.5 mg tablet 12.5 mg PO TID PRN (Reason: dizziness or nausea) Qty: 90 RF: 2 Aimovig Autoinjector 140 mg/mL auto-injector 140 mg SUBCUT ONCE Qty: 1 RF: 3 ondansetron HCl [Zofran] 4 mg tablet 4 mg PO Q6H PRN (Reason: nausea and vomiting) Qty: 30 RF: 0 diclofenac sodium [Voltaren] 1 % gel 2 gm TOPICAL QID Qty: 100 RF: 0 quetiapine [Seroquel] 50 mg tablet 50 mg PO .bedtime Qty: 30 RF: 3 lorazepam 0.5 mg tablet 0.5 mg PO TID PRN (Reason: anxiety) Qty: 90 RF: 3 lubiprostone 24 mcg capsule 24 mcg PO BID Qty: 180 RF: 3 Protonix 40 mg tablet,delayed release (DR/EC) 40 mg PO BID Qty: 180 RF: 3 Seroquel 300 mg tablet 300 mg PO BEDTIME Qty: 90 RF: 2 topiramate 100 mg tablet 100 mg PO DAILY Qty: 30 RF: 2 Discharge Orders: Discharge ED (Routine); Ordered 11/07/20 Ordered By: Oneil Munoz Referrals: Marko Wallace, [facility] [Primary Care Provider] - Discharge Diet: Usual diet Discharge Activity: Increase activity as tolerated Patient Instructions: Constipation (ED), Opioid Safety Activity Restrictions/Additional Instructions: Drink plenty of water with medication. Use acetaminophen or ibuprofen for pain. Use ice or heat for further pain relief. Use magnesium citrate 10 ounce bottle 1 bottle twice a day for good bowel movement. Continue with routine medications otherwise. Follow-up with primary care for further treatment. Coding Level of Care Code ED Production Pattern Maker for Yash Fwd Exam Comprehensive
--- NOTE | 2020-11-06 23:19 | CTR_ITS ---
PROCEDURE INFORMATION: Exam: CT Abdomen And Pelvis With Contrast Exam date and time: 11/06/2020 11:21 PM Age: 40 years old Clinical indication: Abdominal pain; Localized; Left lower quadrant (llq); Prior surgery; Surgery type: Gb. Hernia. Hysterectomy. ; Patient HX: Llq pain; Additional info: Left lower abd pain, HX of constipation TECHNIQUE: Imaging protocol: Computed tomography of the abdomen and pelvis with contrast. Radiation optimization: All CT scans at this facility use at least one of these dose optimization techniques: automated exposure control; mA and/or kV adjustment per patient size (includes targeted exams where dose is matched to clinical indication); or iterative reconstruction. Contrast material: OMNI 300; Contrast volume: 75 ml; Contrast route: INTRAVENOUS (IV); COMPARISON: CT abdomen pelvis w con* [id number] 06/21/2019 1:47 PM RADIATION DOSE METRICS: Total DLP (mGy-cm): 836.89 FINDINGS: There is some atelectasis within the lung bases. There are mild degenerative changes of the spine. There is no liver mass. T there is mild intrahepatic biliary dilatation similar to the old exam. This may be due to prior cholecystectomy. No ductal stones are identified. The pancreas is unremarkable. The spleen is unremarkable. There is no adrenal mass. Bilateral renal cysts are present, unchanged. No renal calculi or hydronephrosis is seen. The aorta is normal in caliber. The IVC is normal in caliber. There is no retroperitoneal adenopathy. There is no mesenteric adenopathy. The stomach is unremarkable. The small bowel loops in the upper abdomen are nondistended with no bowel wall thickening. Feces is seen throughout the colon. There is no thickening of the wall of the ascending, transverse or descending colons. Within the pelvis: A normal appendix is seen within the right lower quadrant. There is bladder distention. The patient is status post hysterectomy. Small cysts are seen within the left ovary. The right adnexa is unremarkable. There is a scant amount of free fluid within the pelvis. There is no inguinal adenopathy. There is no pelvic adenopathy. Feces is seen within the rectosigmoid colon. CT/CT abdomen pelvis w con* [id number] IMPRESSION: 1. Significant fecal burden suggesting constipation. No evidence for bowel obstruction or bowel wall thickening. 2. Bladder distention. 3. Small left ovarian cysts. 4. Mild central biliary dilatation similar to the previous exam. Radiation Dose CTDIVOL = (mGy): DLP = 836.89 (mGy-cm)
[2020-11-06] MEDS: iohexol 300 mg/mL 100 mL Btl IV (23:28)
[2020-11-06 23:36] VITALS: BP 143/83; PULSE 110; O2SAT 91
[2020-11-06 23:41] LABS: Basophils # 0.1 10^3/uL (0.0-0.1); Basophils % 0.5 %; Eosinophils # 0.2 10^3/uL (0.0-0.8); Eosinophils % 2.3 %; Hematocrit 37.7 % (37.0-47.0); Hemoglobin 12.4 g/dL (11.5-15.3); Lymphocytes # 3.9 10^3/uL (0.8-4.8); Lymphocytes % 37.5 %; Mean Corpuscular HGB Conc 32.9 g/dL (30.0-36.0); Mean Corpuscular Hemoglobin 32.5 pg (28.0-34.0); Mean Platelet Volume 9.7 fL (7.4-10.4); Monocytes # 0.4 10^3/uL (0.2-0.9); Monocytes % 4.1 %; Neutrophils % 55.4 %; Nucleated Red Blood Cells % 0 %; Platelet Count 321 10^3/cmm (130-400); Red Blood Count 3.81 10^6/uL (4.1-5.3); Red Cell Distribution Width 12.4 % (12.1-15.1); White Blood Count 10.3 10^3/uL (4.0-10.0)
[2020-11-06 23:48] LABS: Add Urine Microscopic? NO
[2020-11-06] MEDS: sodium chloride 0.9% 500 ML 999 ML IV (23:48)
[2020-11-06 23:54] LABS: Alanine Aminotransferase 16 U/L (0-33); Albumin Level 4.5 g/dL (3.5-5.2); Alkaline Phosphatase 69 IU/L (35-105); Aspartate Amino Transferase 15 U/L (0-32); Blood Urea Nitrogen 13 mg/dL (6-20); Calcium 8.8 mg/dL (8.5-10.5); Carbon Dioxide 21 mmol/L (22-29); Globulin 2.9 g/dL (1.3-4.6); Glomerular Filtration Rate 92.2 mL/min (90-130); Glucose 88 mg/dL (65-115); Lipase 20 U/L (13-60); Total Bilirubin 0.2 mg/dL (0.15-1.2); Total Protein 7.4 g/dL (6.6-8.7)
[2020-11-06 23:56] LABS: Bilirubin Urine Neg (Negative); Blood Urine Neg (Negative); Glucose Urine UA Norm (Normal); Ketones Urine Negative (Negative); Leukocyte Esterase Urine Negative (Negative); Nitrate Urine Negative (Negative); Protein Urine Neg (Negative); Specific Gravity, Urine 1.005 (1.005-1.030); Urine Appearance Clear (CLEAR); Urine Color Yellow (Yellow); Urobilinogen Urine Norm (Negative); pH Urine 7 (5-7)
[2020-11-07 00:05] LABS: Anion Gap 14.5 (5-19); Chloride 105 mmol/L (98-107); Osmolality Calculated 284 mOsm/kg (285-295); Potassium 3.5 mmol/L (3.5-5.1); Sodium 137 mmol/L (136-145)
--- NOTE | 2020-11-07 00:06 | PC.NURSE ---
patient report received from MARIANO Simon and care transferred to MARIANO Madsen
[2020-11-07 00:10] VITALS: BP 139/82; PULSE 67; RESP 18; O2SAT 100
[2020-11-07] MEDS: cephALEXin 500 mg Capsule PO (00:29)
[2020-11-07 00:32] VITALS: BP 115/53; PULSE 76; RESP 17; O2SAT 100
== END 2020-11-07 00:33 | disposition home or self-care (01) ==
PROVIDERS: Emergency Provider Nurse Practitioner Family; PCP Nurse Practitioner
DX: K62.89 Other specified diseases of anus and rectum (principal); K59.00 Constipation, unspecified
CPT/HCPCS: 74177; 80053; 81003; 83690; 85025; 96360; 99283; J7040; Q9967

== ENCOUNTER → 2020-11-19 12:24 | Outpatient (BNVA) | payer OTHER, SELFPAY | PROVIDERS: PCP Nurse Practitioner; Visit Provider Surgery | DX: D17.1 Benign lipomatous neoplasm of skin and subcutaneous tissue of trunk (principal); Z20.822 Contact with and (suspected) exposure to COVID-19 | CPT/HCPCS: 87635 ==

== ENCOUNTER 2020-11-24 09:59 | Day surgery (SDC) | payer OTHER, SELFPAY ==
[2020-11-23 15:31] VITALS: BMI 24.2
[2020-11-24] VITALS (8 sets, daily range): BP systolic 104–118; BP diastolic 70–90; PULSE 68–96; RESP 9–18; TEMP 36.2–36.7; O2SAT 98–100
--- NOTE | 2020-11-24 10:10 | ANES.PREANE2 ---
Pre-Anesthetic Assessment Pre-Anesthetic Assessment: Height/Weight: Height 1.52 m Weight 56.245 kg Temp Pulse Resp BP Pulse Ox 97.1 F L 72 16 107/70 98 11/24/20 10:13 11/24/20 10:13 11/24/20 10:13 11/24/20 10:13 11/24/20 10:13 Preop Diagnosis: Lower back mass Proposed Procedure: Operation Date: 11/24/20 11:35 Proposed Procedures p Excision of left lower back mass 58703 D17.1(Not Applicable) - Tom Hanson MD Familial anesthetic complications: none Was Beta Rosie taken within 24 hours: N/A Was Clonidine taken within 24 hours: N/A Last intake: Intake Last Liquid Date 11/23/20 Last Liquid Time 22:00 Last Solid Date 11/23/20 Last Solid Time 19:00 Social: Social History: No alcohol and No tobacco Exam: Pre-Anes Outpt Exam: alert, oriented x 3, clear to auscultation bilaterally and regular rate & rhythm Airway: Cervical ROM: WNL MP: 3 Dentition: Full Pulmonary: Pulmonary: Asthma GI: GI: GERD Anesthetic Plan: ASA status: 2 Anesthesia: MAC Risk of > 500 ml blood loss (7ml/kg in children): No Meds/Allergies Current Medications: Current Medications Generic Name Dose Route Start Last Admin Trade Name Freq PRN Reason Stop Dose Admin Sodium Chloride 1,000 mls @ 30 ml s/hr 11/24/20 10:15 11/24/20 10:26 Sodium Chloride 0.9% IV 11/25/20 10:14 30 mls/hr .Q24H SHAHLA Administration PFSH Anesthesia PFSH: Medical History Bereavement Mother Sep 03, 2017. Chronic peptic ulcer Chronic post-traumatic stress disorder Environmental and seasonal allergies Gastro-esophageal reflux disease without esophagitis Major depressive disorder, recurrent episode, moderate with anxious distress Migraine aura, persistent, intractable Panic disorder without agoraphobia Surgical History History of cholecystectomy (~2000) History of partial hysterectomy History of pelvic surgery due to adhesion History of right oophorectomy Family History Other Diabetes Heart disease Hypertension Social History Smoking and tobacco status: never smoked Second hand smoke exposure: No Smoking risk assessment/counseling performed?: No Alcohol intake: never Desire information about alcohol rehabilitation?: No Counseling given: No Desire information about substance/drug rehabilitation?: No Counseling given: No Adopted: No Caregiver/support person: No Lives independently: Yes Household members: spouse and children Housing: House Marital status: Current occupational status: employed [place] occupation: [employer] [place] of recent travel: No Current gender identity: Female Data Anesthesia Cardiac Studies: No Data to Display
[2020-11-24] MEDS: sodium chloride 0.9% 1,000 ML 30 ML IV (10:26)
--- NOTE | 2020-11-24 10:33 | W.PM.OPSUD ---
Surgery/Procedure H&P Update DATE OF PROCEDURE: November 24, 2020 DATE H&P PERFORMED: 11/16/20 H&P UPDATE INFORMATION: I have reviewed H&P completed within last 30 days, I have examined patient prior to procedure and No changes to prior documentation PREOP DIAGNOSIS: Lower back mass PRIMARY INDICATION FOR PROCEDURE: The same PLANNED PROCEDURE: Operation Date: 11/24/20 11:35 Proposed Procedures p Excision of left lower back mass 22398 D17.1(Not Applicable) - Tom Hanson MD
[2020-11-24] MEDS: lidocaine 2% INJ 20 mL INJECTION (11:10)
--- NOTE | 2020-11-24 11:37 | P.OP_ITS ---
Operative Report Date of procedure: November 24, 2020 Pre-op Diagnosis: Lower back mass Post-op diagnosis: same Post-op Findings: Left lower back lipoma 15 x 20 cm Procedure Done: Excision of left lower back lipomas Implants: Multiple medium size clips Specimens removed/disposition: Left lower back lipoma Surgeon: Tom Hanson Lay Out Machine Operator: traffic analysis technician Bharathi Circulating nurse Nuris Mitchell Anesthesia: General (LMA assistant merchandiser Courtney) Estimated blood loss (mL): 20 Condition: stable Disposition: same day Brief History: This is a pleasant 48 years old female patient referred to my practice with symptomatic left lower back mass likely lipoma.Full H&P and informed consent per chart. Procedure: After identifying the patient holding area,Left lower back mass was marked before the procedure by myself In the presence of nursing staff Shy, patient was then taken to the operative suite, was placed in right lateral position.All pressure points were padded and patient was appropriately secured to the bed, IV antibiotics were given per protocol,LMA was placed by the anesthesia provider, prep and drape of the left Lower back region was done under the usual sterile technique. Time-out was done verifying the patient's name/date of /planned procedure and destination after the procedure, all were in agreement. After palpation of the back mass.Infiltration of lidocaine 2%.Started by transverse incision on top of the mass including the. I was able to dissect using Sharp and blunt dissection of the lipoma-like structure was excised from the surrounding tissues,Patient had Multiple lipoma-like structures with a total dimensions of 15 x [address] to the Muscle layer but not through the muscles. All were excised and sent for permanent pathology. Copious and Thorough irrigation of the cavity was done and hemostasis,Stout sfixing [id number] 2-0 Vicryl was applied to the feeding vessels followed by medium size clips followed by deep dermal closure by 3-0 Vicryl, then 4/0 Monocryl for skin closure Lidocaine 2% was injected at the site of the incision, followed by Surgical glue and pressure dressing. Patient tolerated the procedure well,count of instruments,needles and sponges were completed at the end of the procedure.And then patient was taken to the recovery area in stable condition. I was present for the whole entire procedure
--- NOTE | 2020-11-24 11:48 | SUR.PHASEI ---
1144 PATIENT TO PACU FROM OR. RR EVEN AND UNLABORED. DRESSING TO LEFT LOWER BACK, CDI.
[2020-11-24] MEDS: ondansetron 2 mg/ML SDV 2 mL 4 MG IVP (11:58)
--- NOTE | 2020-11-24 12:10 | ANE.PACU2 ---
Inpatient post-anesthesia follow up: Airway intact: Yes Vital signs: Temperature 98.0 F Pulse Rate 73 Respiratory Rate 15 Blood Pressure 114/82 Pulse Oximetry 100 Oxygen Delivery Me thod Room Air Oxygen Flow Rate Fraction of Inspir ed Oxygen Hydration adequate: Yes Nausea and vomiting: No Pain level: 2 Mental status: Baseline
--- NOTE | 2020-11-24 12:21 | SUR.PHASEI ---
1207 PATIENT TO OPS FROM PACU. NO DISTRESS. NAUSEA IMPROVED. DRESSING TO LOWER BACK, CDI.
[2020-11-24] MEDS: HYDROcodone-acetaminophen 5-325 mg Tablet 1 TAB PO (12:38)
== END 2020-11-24 12:59 | disposition home or self-care (01) ==
PROVIDERS: PCP Nurse Practitioner; Visit Provider Surgery
PROC: (CPT 11406; principal; 2020-11-24 11:25)
DX: D17.1 Benign lipomatous neoplasm of skin and subcutaneous tissue of trunk (principal); J45.909 Unspecified asthma, uncomplicated; K21.9 Gastro-esophageal reflux disease without esophagitis; Z87.11 Personal history of peptic ulcer disease; F33.9 Major depressive disorder, recurrent, unspecified
CPT/HCPCS: 11406; 12035; 88304; J0131; J0690; J2405; J2704; J3010; J3490; J7030

== ENCOUNTER → 2020-12-02 07:43 | Outpatient (BNVA) | payer OTHER, SELFPAY | PROVIDERS: PCP Nurse Practitioner; Visit Provider Nurse Practitioner Psychiatric/Mental Health | DX: F33.1 Major depressive disorder, recurrent, moderate (principal); F43.12 Post-traumatic stress disorder, chronic; F41.0 Panic disorder [episodic paroxysmal anxiety]; Z63.4 Disappearance and death of family member | CPT/HCPCS: 99214 ==

== ENCOUNTER → 2021-01-06 07:31 | Outpatient (BNVA) | payer OTHER, SELFPAY | PROVIDERS: PCP Nurse Practitioner; Visit Provider Nurse Practitioner Psychiatric/Mental Health | DX: F33.1 Major depressive disorder, recurrent, moderate (principal); F43.12 Post-traumatic stress disorder, chronic; F41.0 Panic disorder [episodic paroxysmal anxiety]; Z79.899 Other long term (current) drug therapy; Z63.4 Disappearance and death of family member | CPT/HCPCS: 99214 ==

== ENCOUNTER 2021-01-08 08:16 | Outpatient (CLI) | payer OTHER, SELFPAY | END 2021-01-08 08:17 | disposition home or self-care (01) | LOC: WOUND 08:16 | PROVIDERS: PCP Nurse Practitioner; Visit Provider Surgery | DX: T81.89XA Other complications of procedures, not elsewhere classified, initial encounter (principal) | CPT/HCPCS: 11042; G0463 ==

== ENCOUNTER → 2021-01-14 09:22 | Outpatient (BNVA) | payer OTHER, SELFPAY | PROVIDERS: PCP Nurse Practitioner; Visit Provider Specialist | DX: G43.711 Chronic migraine without aura, intractable, with status migrainosus (principal); F43.12 Post-traumatic stress disorder, chronic; K27.7 Chronic peptic ulcer, site unspecified, without hemorrhage or perforation; M50.90 Cervical disc disorder, unspecified, unspecified cervical region; G24.3 Spasmodic torticollis | CPT/HCPCS: 99213; 99214 ==

== ENCOUNTER 2021-01-15 08:40 | Outpatient (CLI) | payer OTHER, SELFPAY | END 2021-01-15 08:41 | disposition home or self-care (01) | LOC: WOUND 08:41 | PROVIDERS: PCP Nurse Practitioner; Visit Provider Nurse Practitioner Family | DX: T81.89XA Other complications of procedures, not elsewhere classified, initial encounter (principal); Y83.8 Other surgical procedures as the cause of abnormal reaction of the patient, or of later complication, without mention of misadventure at the time of the procedure | CPT/HCPCS: 11042 ==

== ENCOUNTER → 2021-01-27 13:42 | Outpatient (BNVA) | payer OTHER, SELFPAY | PROVIDERS: PCP Nurse Practitioner; Visit Provider Nurse Practitioner Family | DX: M41.86 Other forms of scoliosis, lumbar region (principal); M54.5 Low back pain | CPT/HCPCS: 72100 ==

== ENCOUNTER 2021-01-29 08:51 | Outpatient (CLI) | payer OTHER, SELFPAY | END 2021-01-29 08:52 | disposition home or self-care (01) | LOC: WOUND 08:52 | PROVIDERS: PCP Nurse Practitioner; Visit Provider Surgery | DX: Z09 Encounter for follow-up examination after completed treatment for conditions other than malignant neoplasm (principal) | CPT/HCPCS: 99212 ==

== ENCOUNTER → 2021-02-04 07:19 | Outpatient (BNVA) | payer OTHER, SELFPAY | PROVIDERS: PCP Nurse Practitioner; Visit Provider Nurse Practitioner Psychiatric/Mental Health | DX: F33.1 Major depressive disorder, recurrent, moderate (principal); F43.12 Post-traumatic stress disorder, chronic; F41.0 Panic disorder [episodic paroxysmal anxiety]; G43.519 Persistent migraine aura without cerebral infarction, intractable, without status migrainosus; Z63.4 Disappearance and death of family member; G43.709 Chronic migraine without aura, not intractable, without status migrainosus; K27.7 Chronic peptic ulcer, site unspecified, without hemorrhage or perforation; M50.90 Cervical disc disorder, unspecified, unspecified cervical region; G24.3 Spasmodic torticollis | CPT/HCPCS: 64615; 99214; J0585 ==

== ENCOUNTER → 2021-03-25 08:56 | Outpatient (BNVA) | payer OTHER, SELFPAY | PROVIDERS: PCP Nurse Practitioner; Visit Provider Surgery | DX: Z01.812 Encounter for preprocedural laboratory examination (principal); Z20.822 Contact with and (suspected) exposure to COVID-19; K21.9 Gastro-esophageal reflux disease without esophagitis | CPT/HCPCS: 87635 ==

== ENCOUNTER 2021-03-29 06:02 | Day surgery (SDC) | payer OTHER, SELFPAY ==
[2021-03-25 11:44] VITALS: BMI 23.6
[2021-03-29 06:20] VITALS: BP 105/53; PULSE 71; RESP 16; TEMP 36.6; O2SAT 100
--- NOTE | 2021-03-29 06:31 | P.HP_ITS ---
Same Day Surgery H&P Indication for Procedure/HPI DATE OF PROCEDURE: March 29, 2021 CHIEF COMPLAINT/INDICATIONFOR SURGICAL PROCEDURE: My ulcer is active my ulcer is acting up PREOP DIAGNOSIS: History of peptic ulcer disease and anorexia PLANNED PROCEDRUE: Operation Date: 03/29/21 07:00 Proposed Procedures p EGD 31643 k21.9(Not Applicable) - Tom Hanson MD Patient comes today as a follow-up after has been discharged from the wound care center with complete healing of the left lower back incision status post lipoma excision, she feels a whole lot better and her back pain is resolving as well. Patient reports to me that she had history of peptic ulcer disease and she had continue to complain of anorexia and nausea with acid reflux. Patient undergone an EGD back in June 2020 that showed multiple superficial chronic ulcers. And clots were appreciated. Patient continues to complain of the above symptoms and she is concerned about her ulcers. Interim history 03/29/21 Patient comes today for diagnostic EGD ROS All systems have been reviewed negative except as per the above or per problem list Medications/Allergies* Allergies/Adverse Reactions Allergy/AdvReac Type Severity Reaction Status Date / Time Influenza Virus Vaccines Allergy Unknown Unknown Verified 03/29/21 06:32 ketorolac [From Toradol] Allergy Unknown Unknown Verified 03/29/21 06:32 Pertinent History/Comorbid Conditions* Medical History (Updated 02/19/21 @ 12:55 by Tom Hanson MD) Bereavement Mother Sep 03, 2017. Chronic peptic ulcer Chronic post-traumatic stress disorder Environmental and seasonal allergies Gastro-esophageal reflux disease without esophagitis Major depressive disorder, recurrent episode, moderate with anxious distress Migraine aura, persistent, intractable Palpable mass of lower back Panic disorder without agoraphobia Surgical History (Updated 11/21/19 @ 11:17 by ELOY Singer) History of cholecystectomy (~1999) History of partial hysterectomy History of pelvic surgery due to adhesion History of right oophorectomy Family History (Updated 11/20/19 @ 13:51 by Sweta Mendoza LPN) Diabetes Heart disease Hypertension Social History Smoking and tobacco status: never smoked Second hand smoke exposure: No Smoking risk assessment/counseling performed?: No Alcohol intake: never Desire information about alcohol rehabilitation?: No Counseling given: No Desire information about substance/drug rehabilitation?: No Counseling given: No Adopted: No Caregiver/support person: No Lives independently: Yes Household members: spouse and children Housing: House Marital status: Current occupational status: employed Current occupation: [employer] – [place] History of recent travel: No Current gender identity: Female Pertinent Exam Findings alert, oriented x 3 and operative site marked (Abdominal examination nontender nondistended soft) Recommendations Surgery/Procedure today ( EGD with possible biopsy) Other Plans: Plan of care; After thorough history and physical examination and reviewing the chart, plan to perform a diagnostic esophagogastroduodenoscopy with possible biopsy in the GI lab. I discussed with the patient in detail the risk,benefits,alternatives and indica tions.The risk of aspiration, bleeding, soft tissue injury, perforation of the stomach/esophagus and other potential concomitant complications were explained to the patient in details,aslo the potential need for Thoracic and or Abdominal surgery to repair any complications.The patient understood this well and did agree to proceed. Rationale was carefully and clearly discussed with the patient.Appropriate informed consent have been reviewed and signed All questions have been answered and all concerns have been addressed to patient's satisfaction. Coding Level of Care Code Acute Health Policy Manager for Yash Arias
[2021-03-29] MEDS: sodium chloride 0.9% 1,000 ML 30 ML IV (06:33)
--- NOTE | 2021-03-29 06:52 | ANES.PREANE2 ---
Pre-Anesthetic Assessment Pre-Anesthetic Assessment: Height/Weight: Height 1.52 m Weight 54.885 kg Temp Pulse Resp BP Pulse Ox 97.8 F 71 16 105/53 100 03/29/21 06:20 03/29/21 06:20 03/29/21 06:20 03/29/21 06:20 03/29/21 06:20 Preop Diagnosis: History of peptic ulcer disease and anorexia Proposed Procedure: Operation Date: 03/29/21 07:00 Proposed Procedures p EGD 04960 k21.9(Not Applicable) - Tom Hanson MD Was Beta Rosie taken within 24 hours: N/A Was Clonidine taken within 24 hours: N/A Last intake: Intake Last Liquid Date 03/28/21 Last Solid Date 03/28/21 Social: Social History: No alcohol and No tobacco Exam: Pre-Anes Outpt Exam: alert, oriented x 3, clear to auscultation bilaterally and regular rate & rhythm Airway: Submandibular: WNL Cervical ROM: WNL MP: 2 History/ROS: No significant history except as noted Pulmonary: Comments: seasonal allergies CV/HEM: CV/HEM: None reported : : None reported Hepatic: Hepatic: None reported GI: GI: GERD and PUD Musc/skel: Musc/skel: None reported Neuropsych: Neuropsych: Anxiety and Depression Anesthetic Plan: ASA status: 2 Anesthesia: Anesthesia Evaluation and MAC Risk of > 500 ml blood loss (7ml/kg in children): No Meds/Allergies Current Medications: Current Medications Generic Name Dose Route Start Last Admin Trade Name Freq PRN Reason Stop Dose Admin Sodium Chloride 1,000 mls @ 30 ml s/hr 03/29/21 06:15 03/29/21 06:33 Sodium Chloride 0.9% IV 03/30/21 06:14 30 mls/hr .Q24H SHAHLA Administration PFSH Anesthesia PFSH: Medical History Bereavement Mother Sep 03, 2017. Chronic peptic ulcer Chronic post-traumatic stress disorder Environmental and seasonal allergies Gastro-esophageal reflux disease without esophagitis Major depressive disorder, recurrent episode, moderate with anxious distress Migraine aura, persistent, intractable Palpable mass of lower back Panic disorder without agoraphobia Surgical History History of cholecystectomy (~1999) History of partial hysterectomy History of pelvic surgery due to adhesion History of right oophorectomy Family History Other Diabetes Heart disease Hypertension Social History Smoking and tobacco status: never smoked Second hand smoke exposure: No Smoking risk assessment/counseling performed?: No Alcohol intake: never Desire information about alcohol rehabilitation?: No Counseling given: No Desire information about substance/drug rehabilitation?: No Counseling given: No Adopted: No Caregiver/support person: No Lives independently: Yes Household members: spouse and children Housing: House Marital status: Current occupational status: employed Current occupation: [employer] [employer] – [place] History of recent travel: No Current gender identity: Female Data Anesthesia Cardiac Studies: No Data to Display
[2021-03-29 07:06] VITALS: BP 91/46; PULSE 69; RESP 16; TEMP 36.2; O2SAT 96
[2021-03-29] MEDS: ondansetron 2 mg/ML SDV 2 mL 4 MG IVP (07:19)
[2021-03-29 07:31] VITALS: BP 112/60; PULSE 65; RESP 16; O2SAT 100
--- NOTE | 2021-03-29 07:47 | PC.NURSE ---
pt c/o nausea. pt given 4 mg zofran IVP. pt states relief of nausea.
--- NOTE | 2021-03-29 16:39 | ANE.PACU2 ---
Inpatient post-anesthesia follow up: Airway intact: Yes Vital signs: Temperature 97.1 F Pulse Rate 65 Respiratory Rate 16 Blood Pressure 112/60 Pulse Oximetry 100 Oxygen Delivery Me thod Room Air Oxygen Flow Rate Fraction of Inspir ed Oxygen Hydration adequate: Yes Nausea and vomiting: No Pain level: 1 Mental status: Baseline
[2021-03-30 06:28] LABS: H. Pylori / CLO Test Negative
== END 2021-03-29 07:40 | disposition home or self-care (01) ==
PROVIDERS: PCP Nurse Practitioner; Visit Provider Surgery
PROC: 0DJ08ZZ Inspection of Upper Intestinal Tract, Via Natural or Artificial Opening Endoscopic (ICD-10-PCS; CPT 43235; principal; 2021-03-29 07:00)
DX: K21.00 Gastro-esophageal reflux disease with esophagitis, without bleeding (principal); K29.70 Gastritis, unspecified, without bleeding; K31.89 Other diseases of stomach and duodenum; Z87.11 Personal history of peptic ulcer disease; R63.0 Anorexia; Z68.23 Body mass index [BMI] 23.0-23.9, adult; F41.9 Anxiety disorder, unspecified; F32.9 Major depressive disorder, single episode, unspecified; Z82.49 Family history of ischemic heart disease and other diseases of the circulatory system; Z83.3 Family history of diabetes mellitus
CPT/HCPCS: 43239; 87077; 96361; 96374; J2405; J2704; J7030

== ENCOUNTER → 2021-04-19 14:26 | Outpatient (BNVA) | payer OTHER, SELFPAY | PROVIDERS: PCP Nurse Practitioner; Visit Provider Nurse Practitioner Family | DX: Z20.822 Contact with and (suspected) exposure to COVID-19 (principal); R53.83 Other fatigue; R51.9 Headache, unspecified | CPT/HCPCS: 87635 ==

== ENCOUNTER 2021-04-23 19:13 | Emergency (ER) | payer OTHER, SELFPAY ==
[2021-04-23 19:26] VITALS: BP 152/85; PULSE 74; RESP 18; TEMP 36.8; O2SAT 98; BMI 24.2
[2021-04-23 20:21] LABS: SARS Covid-2 Antigen Negative (Negative)
--- NOTE | 2021-04-23 20:44 | W.ED.HA ---
HPI - Headache General: Chief Complaint: Headache Stated Complaint: headache/fatigue/blurred Time Seen by Provider: 04/23/21 20:28 History of Present Illness: HPI Narrative: 41-year-old female with a history of migraine and cluster headaches evidently. She presents with headache for the last 5 to 6 days. She states that she has had chills to and feels warm, but has been checking her temperature and does not have a fever. She was tested for COVID-19 4 days ago by PCR, and was negative. Headache has been left largely untreated. She recently started Botox injections for tonic headaches as well. She is experiencing some blurry vision to her right eye that is on and off, which is a new symptom for her. Is also had some dizziness with change in position. MD elicited complaint: headache and migraine Onset (ago): day(s) Onset description: gradually Location: right, frontal and temporal Quality & Timing: aching and throbbing Exacerbating factors: movement of head/neck and light Relieving factors: nothing Context: occurred at rest Associated symptoms: Reports malaise, nausea and photophobia; Deny chest pain, confusion, cough, diaphoresis, eye pain, eye redness, fever(s), neck stiffness, numbness, paresthesias, rash, seizures or vomiting Treatments prior to arrival: migraine medication Review of Systems Const: Reports: malaise; Denies: fever(s) or diaphoresis Card: Denies: chest pain GI: Reports: nausea; Denies: vomiting Skin/Breast: Denies: rash Neuro: Denies: confusion PFSH ED PFSH: Medical History Bereavement Mother Sep 03, 2017. Chronic peptic ulcer Chronic post-traumatic stress disorder Environmental and seasonal allergies Esophagitis Gastritis Gastro-esophageal reflux disease without esophagitis Major depressive disorder, recurrent episode, moderate with anxious distress Migraine aura, persistent, intractable Palpable mass of lower back Panic disorder without agoraphobia Surgical History History of cholecystectomy (~1999) History of partial hysterectomy History of pelvic surgery due to adhesion History of right oophorectomy Family History Other Diabetes Heart disease Hypertension Social History Smoking and tobacco status: never smoked Second hand smoke exposure: No Smoking risk assessment/counseling performed?: No Alcohol intake: never Desire information about alcohol rehabilitation?: No Counseling given: No Desire information about substance/drug rehabilitation?: No Counseling given: No Adopted: No Caregiver/support person: No Lives independently: Yes Household members: spouse and children Housing: House Marital status: Current occupational status: employed Current occupation: [employer] – [place] History of recent travel: No Current gender identity: Female Physical Exam Const: COMMON NORMALS: no acute distress and patient oriented x3 GENERAL APPEARANCE: cooperative ORIENTATION/CONSCIOUSNESS: Yes awake, Yes oriented to person, Yes oriented to place and Yes oriented to time Eye: DIRECT OPHTHALMOSCOPY: Yes photophobia Chest: COMMONS NORMALS: normal inspection of the chest Resp: COMMON NORMALS: normal respiratory effort, No use of accessory muscles and clear to auscultation bilaterally AUSCULTATION: clear to auscultation bilaterally Cardio: COMMON NORMALS: regular rate and regular rhythm RATE: regular rate RHYTHM: regular rhythm GI: COMMON NORMALS: Normal to inspection, nondistended, normoactive bowel sounds present Neuro: COMMON NORMALS: patient oriented x3, CN's II-XII intact bilaterally and moves all extremities SENSORIUM/ORIENTATION: Yes oriented to person, Yes oriented to place and Yes oriented to time COORDINATION/BALANCE: [id number] test normal SPEECH: speech normal and abnormal speech MOTOR EXAM: Pronator motor function not present COORDINATION: [id number] test normal Course Vital Signs: Vital signs: Vital Signs Temperature 98.2 F 04/23/21 19:26 Pulse Rate 59 L 04/23/21 22:22 Respiratory Rate 16 04/23/21 23:10 Blood Pressure 124/63 04/23/21 23:10 Pulse Oximetry 100 04/23/21 22:22 MDM - Headache MDM Narrative: Medical decision making narrative: 41-year-old female here with headache and right-sided blurry vision. No other focal deficits on neurological exam. She was given an IV infusion of Depacon, plus a migraine cocktail. This helped her headache about 50%, and her vision to some degree, but was not complete relief. CT of the head is negative. She has been given Reglan now, with some further improvement in both headache and vision changes. Suspect this is a migraine versus cluster headache with vision change. She will be allowed home since she is improved. Lab Data: Labs: Lab Results 04/23/21 Range/Units 19:46 SARS-CoV-2 Ag (Rap id) Negative (Negative) Discharge Plan Discharge Patient Disposition: Home Clinical Impression: Migraine Qualifiers: Migraine type: other Status migrainosus presence: with status migrainosus Intractability: not intractable Qualified Code(s): G43.801 - Other migraine, not intractable, with status migrainosus Condition: Stable Prescriptions: No Action montelukast [Singulair] 10 mg tablet 10 mg PO DAILY Qty: 30 RF: 2 albuterol sulfate [ProAir HFA] 90 mcg/actuation HFA aerosol inhaler 2 puff INHALATION Q4H PRN (Reason: shortness of breath or wheezing) Qty: 18 RF: 2 ondansetron HCl [Zofran] 4 mg tablet 4 mg PO Q6H PRN (Reason: nausea and vomiting) Qty: 30 RF: 3 lactulose 20 gram/30 mL solution 20 g PO QID PRN (Reason: constipation) 30 Days Qty: 3600 RF: 1 venlafaxine [Effexor XR] 75 mg capsule,extended release 24hr 75 mg PO QAM Qty: 30 RF: 3 quetiapine [Seroquel] 50 mg tablet 50 mg PO .bedtime Qty: 30 RF: 3 Seroquel 300 mg tablet 300 mg PO BEDTIME Qty: 90 RF: 2 lorazepam 0.5 mg tablet 0.5 mg PO TID PRN (Reason: anxiety) Qty: 90 RF: 3 meclizine 12.5 mg tablet 12.5 mg PO TID PRN (Reason: dizziness or nausea) Qty: 90 RF: 2 diclofenac sodium [Voltaren] 1 % gel 2 gm TOPICAL QID Qty: 100 RF: 0 Hold Instructions: Resume on 12/01/20. methocarbamol [Robaxin-750] 750 mg tablet 750 mg PO .2 times day Qty: 60 RF: 0 topiramate 100 mg tablet 100 mg PO DAILY Qty: 30 RF: 5 sucralfate 1 gram tablet 1 g PO Q8H 30 Days Qty: 90 RF: 2 Protonix 40 mg tablet,delayed release (DR/EC) 40 mg PO BID Qty: 180 RF: 3 Discharge Orders: Discharge ED (Routine); Ordered 04/23/21 Ordered By: Bobby Camacho Referrals: Marko Wallace FNP-C [Primary Care Provider] - Discharge Diet: Advance as tolerated Discharge Activity: Increase activity as tolerated Patient Instructions: Acute Headache (ED) Activity Restrictions/Additional Instructions: Return for worsening vision, speech problems, weakness, any other concerning symptoms Coding Level of Care Code ED Expediter for Chg Fwd Exam Detailed
[2021-04-23] MEDS: ondansetron 2 mg/ML SDV 2 mL 4 MG IVP (21:00)
[2021-04-23] MEDS: dexamethasone 4 mg/mL INJ 8 MG IVP (21:01)
[2021-04-23] MEDS: fentaNYL 50 mcg/mL INJ 2mL IVP (21:03)
[2021-04-23] MEDS: valproic acid inj 500 MG in sodium chloride 0.9% 50 ML 200 MG IV (21:05)
--- NOTE | 2021-04-23 21:52 | CTR_ITS ---
PROCEDURE INFORMATION: Exam: CT Head Without Contrast Exam date and time: 04/23/2021 9:52 PM Age: 41 years old Clinical indication: Pain; Headache; Patient HX: LANDA. Blurriness to RT eye. ; Additional info: Headache, blurry vision right eye TECHNIQUE: Imaging protocol: Computed tomography of the head without contrast. Radiation optimization: All CT scans at this facility use at least one of these dose optimization techniques: automated exposure control; mA and/or kV adjustment per patient size (includes targeted exams where dose is matched to clinical indication); or iterative reconstruction. COMPARISON: CT Brain 03/02/2020 1:19 p.m. RADIATION DOSE METRICS: Total DLP (mGy-cm): 747.52 FINDINGS: Brain: No acute intracranial hemorrhage or mass effect. No definite acute infarct by CT. MRI could be more sensitive/specific for detection, as clinically directed. Cerebral ventricles: Ventricle size is normal for age. Paranasal sinuses: Included paranasal sinuses are essentially clear. Mastoid air cells: No significant acute finding. Bones/joints: No definite acute skull fracture. CT/CT head wo con* [id number] IMPRESSION: 1. No acute intracranial hemorrhage or mass effect. 2. No definite acute infarct by CT, see above. 3. Other findings discussed above. Radiation Dose CTDIVOL = (mGy): DLP = 747.52 (mGy-cm)
[2021-04-23] MEDS: metoclopramide 5 mg/mL SDV 2 mL IVP (22:21)
[2021-04-23 22:22] VITALS: BP 124/73; PULSE 59; RESP 17; O2SAT 100
[2021-04-23 23:10] VITALS: BP 124/63; RESP 16
== END 2021-04-23 23:11 | disposition home or self-care (01) ==
PROVIDERS: Emergency Provider Emergency Medicine; PCP Nurse Practitioner
DX: G43.801 Other migraine, not intractable, with status migrainosus (principal); Z20.822 Contact with and (suspected) exposure to COVID-19
CPT/HCPCS: 70450; 87426; 96365; 96375; 99283; J1100; J2405; J2765; J3010

== ENCOUNTER → 2021-05-07 08:36 | Outpatient (BNVA) | payer OTHER, SELFPAY | PROVIDERS: PCP Nurse Practitioner; Visit Provider Nurse Practitioner Psychiatric/Mental Health | DX: Z79.899 Other long term (current) drug therapy (principal) | CPT/HCPCS: 80061; 83036 ==

== ENCOUNTER → 2021-06-10 13:01 | Outpatient (BNVA) | payer OTHER, SELFPAY | PROVIDERS: PCP Nurse Practitioner; Visit Provider Specialist | DX: G43.711 Chronic migraine without aura, intractable, with status migrainosus (principal); M75.51 Bursitis of right shoulder | CPT/HCPCS: 64615; 99213; J0585 ==

== ENCOUNTER → 2021-06-29 15:16 | Outpatient (BNVA) | payer OTHER, SELFPAY | PROVIDERS: PCP Nurse Practitioner; Referring Provider Nurse Practitioner Family; Visit Provider Physician Assistant | DX: M50.90 Cervical disc disorder, unspecified, unspecified cervical region (principal) | CPT/HCPCS: 72050 ==

== ENCOUNTER 2021-06-29 16:03 | Outpatient (CLI) | payer OTHER, SELFPAY | END 2021-06-29 16:04 | disposition home or self-care (01) | LOC: SPT 16:04 | PROVIDERS: PCP Nurse Practitioner; Visit Provider Physician Assistant | DX: Z46.89 Encounter for fitting and adjustment of other specified devices (principal) | CPT/HCPCS: L3908 ==

== ENCOUNTER → 2021-07-06 13:02 | Outpatient (BNVA) | payer OTHER, SELFPAY | PROVIDERS: PCP Nurse Practitioner; Referring Provider Physician Assistant; Visit Provider Specialist | DX: M50.30 Other cervical disc degeneration, unspecified cervical region (principal); R20.0 Anesthesia of skin; R20.2 Paresthesia of skin | CPT/HCPCS: 95910 ==

== ENCOUNTER 2021-07-27 11:29 | Outpatient (CLI) | payer OTHER, SELFPAY ==
--- NOTE | 2021-07-27 11:45 | MR_ITS ---
WS: [id number] MRI CERVICAL SPINE NONCONTRAST HISTORY: Chronic pain, RIGHT arm numbness. COMPARISON: 06/17/2020 Technique: Multiplanar, multisequence noncontrast imaging of the cervical spine. Straightening and mild RIGHT curvature cervical spine. Less than 2 mm retrolisthesis of C3 and C4. Disc spaces are mildly narrowed and desiccated throughout . No fracture or marrow edema. Craniocervical junction, C1 and C2 relationship, odontoid process and soft tissues are normal. C2-C3: Very minimal osteophytic ridging. No stenosis. C3-C4: Mild osteophytic ridging and annular disc bulging. No stenosis. C4-C5: Mild diffuse osteophytic ridging. There is also mild component of annular disc bulging. Very m ild facet arthritis. Mild central and bilateral foraminal narrowing. C5-C6: Mild osteophytic ridging and a central disc protrusion with annular disc bulging. Mild bilater al facet arthritis. Disc and osteophyte encroachment also extends into the foramina. Mild central and bilateral foraminal stenosis. C6-C7: Mild osteophytic ridging and disc bulging. No significant stenosis. C7-T1: Normal. Paraspinal soft tissue are normal. MR/MR cervical spin wo con* [id number] IMPRESSION: 1. No significant progression of stenosis or degenerative changes since the pr ior study. 2. Mild central and bilateral foraminal stenosis at C4-5 due to disc and osteo phyte disease. 3. Mild central and bilateral foraminal stenosis at C5-6 due to disc and osteo phyte disease. 4. No cord compression.
== END 2021-07-27 11:30 | disposition home or self-care (01) ==
LOC: RADSHAW 11:33
PROVIDERS: PCP Nurse Practitioner; Visit Provider Physician Assistant
DX: M50.30 Other cervical disc degeneration, unspecified cervical region (principal); M48.02 Spinal stenosis, cervical region; M25.78 Osteophyte, vertebrae
CPT/HCPCS: 72141

== ENCOUNTER → 2021-09-20 12:55 | Outpatient (BNVA) | payer OTHER, SELFPAY | PROVIDERS: PCP Nurse Practitioner; Visit Provider Family Medicine | DX: Z20.822 Contact with and (suspected) exposure to COVID-19 (principal) | CPT/HCPCS: 87635 ==

== ENCOUNTER 2021-12-03 06:00 | Outpatient (RCR) | payer OTHER, SELFPAY | END 2022-01-01 23:59 | disposition home or self-care (01) | LOC: APT 06:00 | PROVIDERS: PCP Nurse Practitioner; Referring Provider Anesthesiology Pain Medicine; Visit Provider Anesthesiology Pain Medicine | DX: M54.2 Cervicalgia (principal); G89.29 Other chronic pain | CPT/HCPCS: 97110; 97162 ==

== ENCOUNTER 2022-01-02 | Outpatient (RCR) | payer OTHER, SELFPAY | END 2022-01-24 23:59 | disposition home or self-care (01) | LOC: APT | PROVIDERS: PCP Nurse Practitioner; Referring Provider Anesthesiology Pain Medicine; Visit Provider Anesthesiology Pain Medicine | DX: M54.2 Cervicalgia (principal); G89.29 Other chronic pain | CPT/HCPCS: 97110 ==

== ENCOUNTER → 2022-04-28 15:36 | Outpatient (BNVA) | payer OTHER, SELFPAY | PROVIDERS: PCP Nurse Practitioner; Visit Provider Nurse Practitioner Family | DX: R11.0 Nausea (principal); I45.10 Unspecified right bundle-branch block; R42 Dizziness and giddiness; H65.193 Other acute nonsuppurative otitis media, bilateral; R00.0 Tachycardia, unspecified | CPT/HCPCS: 80053; 84443; 85025 ==

== ENCOUNTER 2022-06-09 13:19 | Outpatient (CLI) | payer OTHER, SELFPAY ==
--- NOTE | 2022-06-09 13:30 | MM_ITS ---
WS: [id number] BILATERAL 3D TOMOSYNTHESIS DIGITAL SCREENING MAMMOGRAPHY WITH CAD CLINICAL INFORMATION: Z12.39 - Encounter for other screening for malignant neop... HISTORY: Screening mammogram. No current complaints. COMPARISON: TECHNIQUE: Bilateral CC and MLO views. FINDINGS: The breasts are composed of heterogeneous fibroglandular density tissue, which can limit the detectio n of small underlying mass lesions. No suspicious mass, asymmetry, calcifications, or architectural d istortion. No evidence of malignancy. MM/[place] [id number] IMPRESSION: BI-RADS: 1-Negative FOLLOW UP: 1 Year Follow-up Recommend return to annual screening mammography.
== END 2022-06-09 13:20 | disposition home or self-care (01) ==
LOC: RAD 13:20
PROVIDERS: PCP Nurse Practitioner; Visit Provider Nurse Practitioner
DX: Z12.31 Encounter for screening mammogram for malignant neoplasm of breast (principal)
CPT/HCPCS: 77063; 77067

== ENCOUNTER 2022-08-12 08:01 | Outpatient (CLI) | payer OTHER, SELFPAY ==
--- NOTE | 2022-08-12 08:00 | US_ITS ---
WS: [id number] Pelvic ultrasound, 08/12/2022 Clinical Data: R10.2 - Pelvic and perineal pain Comparison: Pelvic ultrasound, 09/18/2018. Findings: The patient has had an hysterectomy and right oophorectomy. The left ovary was not identified. There is no abnormal adnexal mass. There is no fluid in the cul-de-sac. US/US transvaginal [id number] Impression: 1. Hysterectomy and right nephrectomy. 2. Bowel gas obscures the left ovary.
== END 2022-08-12 08:02 | disposition home or self-care (01) ==
PROVIDERS: PCP Nurse Practitioner; Visit Provider Nurse Practitioner
DX: R10.2 Pelvic and perineal pain (principal); Z90.710 Acquired absence of both cervix and uterus; Z90.5 Acquired absence of kidney
CPT/HCPCS: 76830

== ENCOUNTER → 2022-12-05 10:17 | Outpatient (BNVA) | payer OTHER, SELFPAY | PROVIDERS: PCP Nurse Practitioner; Visit Provider Nurse Practitioner Family | DX: R10.9 Unspecified abdominal pain (principal); D64.9 Anemia, unspecified | CPT/HCPCS: 80053; 83540; 85025 ==

== ENCOUNTER 2022-12-06 07:12 | Emergency (ER) | payer OTHER, SELFPAY ==
[2022-12-06 07:21] VITALS: BP 119/40; PULSE 93; TEMP 36.4; O2SAT 93; BMI 24.0
[2022-12-06 07:25] VITALS: BP 119/40; PULSE 65; RESP 18; TEMP 36.4; O2SAT 98
--- NOTE | 2022-12-06 07:25 | ED_ITS ---
HPI - Abdominal Pain General: Chief Complaint: Abdominal Pain Stated Complaint: upper abd pain and nausea Time Seen by Provider: 12/06/22 07:16 Source: patient Mode of arrival: ambulatory History of Present Illness: 42-year-old female who presents with upper abdominal pain and nausea for the last week. No fever sweats or chills no medication melena hematemesis coffee-ground was no dysuria urgency or frequency or hematuria. No chest pain no shortness of breath. MD elicited complaint: abdominal pain Onset (ago): week(s) Pain Consistency: intermittent Location: Diffuse Severity: moderate Radiation: none Exacerbating factors: nothing Relieving factors: nothing Associated Symptoms: Reports anorexia, bloating, constipation, GI cramping, nausea and poor appetite; Denies belching, change in bowel habits, change in stool character, chills, coffee ground emesis, diarrhea, dyspepsia, dysuria, excessive flatus, fever(s), heartburn, hematochezia, hematuria, hematemesis, fecal incontinence, loose stools, melena, syncope and vomiting Review of Systems Const: Denies: fever(s) or chills ENMT: Denies: throat pain, ear or mastoid pain, nasal discharge or nasal congestion Card: Denies: syncope Resp: Denies: dyspnea, productive cough or non-productive cough GI: Reports: nausea, constipation, bloating and GI cramping; Denies: vomiting, hematemesis, coffee ground emesis, heartburn, diarrhea, belching, excessive flatus, fecal incontinence, change in bowel habits, change in stool character, hematochezia or melena : Denies: dysuria or hematuria Skin/Breast: Denies: rash or pruritus PFSH ED PFSH: Medical History Bereavement Mother Sep 03, 2017. Chronic peptic ulcer Chronic post-traumatic stress disorder Environmental and seasonal allergies Esophagitis Gastritis Gastro-esophageal reflux disease without esophagitis History of PSVT (paroxysmal supraventricular tachycardia) Major depressive disorder, recurrent episode, moderate with anxious distress Palpable mass of lower back Panic disorder without agoraphobia Psychiatric care Surgical History History of cholecystectomy (~1999) History of partial hysterectomy History of pelvic surgery due to adhesion History of right oophorectomy History of umbilical hernia repair Three different times 2004 x2, 2013 Family History Other Diabetes Heart disease Hypertension Social History Smoking and tobacco status: former smoker Second hand smoke exposure: No Smoking risk assessment/counseling performed?: No Alcohol intake: never Desire information about alcohol rehabilitation?: No Counseling given: No Desire information about substance/drug rehabilitation?: No Counseling given: No Adopted: No Caregiver/support person: No Lives independently: Yes Household members: spouse and children Housing: House Marital status: Current occupational status: employed Current occupation: [employer] – [place] Current gender identity: Female Physical Exam Const: COMMON NORMALS: no acute distress GENERAL APPEARANCE: cooperative and comfortable ORIENTATION/CONSCIOUSNESS: Yes awake, Yes oriented to person, Yes oriented to place and Yes oriented to time HENMT: COMMON NORMALS: normocephalic, atraumatic and hearing grossly normal bilaterally HEAD & SCALP: normocephalic and atraumatic Resp: COMMON NORMALS: normal respiratory effort, No retractions, No use of accessory muscles and clear to auscultation bilaterally AUSCULTATION: clear to auscultation bilaterally Cardio: COMMON NORMALS: regular rate, regular rhythm and No murmurs present (Cardio) RATE: regular rate RHYTHM: regular rhythm GI: COMMON NORMALS: Soft to palpation and No hepatosplenomegaly present AUSCULTATION: Yes normoactive bowel sounds PALPATION: Yes Soft to palpation, No Tenderness to palpation present (GI), No Guarding due to palpation present (GI) and Yes No hepatosplenomegaly present Extremity: COMMON NORMALS: normal to inspection, capillary refill normal, no clubbing, cyanosis or edema, no calf tenderness and no pedal edema Neuro: SENSORIUM/ORIENTATION: Yes oriented to person, Yes oriented to place and Yes oriented to time Skin: COMMON NORMALS: no rashes or lesions noted GENERAL SKIN EXAM: no rashes or lesions noted Course Vital Signs: Vital signs: Vital Signs Temperature 97.6 F 12/06/22 07:25 Pulse Rate 80 12/06/22 09:45 Respiratory Rate 16 12/06/22 09:45 Blood Pressure 118/76 12/06/22 09:45 Pulse Oximetry 92 12/06/22 09:45 Oxygen Delivery Me thod 12/06/22 08:55 MDM - Abdominal Pain Medical Decision Making Imaging reviewed white count normal hemoglobin low but stable. CT shows large amount of retained stool think that is the cause of her symptoms probably aggravated by her and iron use. Encouraged her to use lactulose for stimulant to relieve the constipation and start MiraLAX that of as needed. Follow-up with primary care Medical Records I reviewed the patient's medical records. Lab Data I reviewed the patient's lab results. 12/06/22 07:40 12/06/22 07:40 Labs/Radiology: Radiology Impressions Abdomen/Pelvis CT 12/06/22 07:37 IMPRESSION: 1. No acute abdominal or pelvic abnormalities are identified on this unenhanced exam. 2. No hydronephrosis or renal calcification. 3. Prior cholecystectomy and hysterectomy. 4. Diffuse severe obstipation, progressed since 2020. Laboratory Results WBC 10.0 10^3/uL (4.0-10.0) 12/06/22 07:40 RBC 3.65 10^6/uL (4.1-5.3) L 12/06/22 07:40 Hgb 10.0 g/dL (11.5-15.3) L 12/06/22 07:40 Hct 32.5 % (37.0-47.0) L 12/06/22 07:40 MCV 89.0 fl (81-99) 12/06/22 07:40 MCH 27.4 pg (28.0-34.0) L 12/06/22 07:40 MCHC 30.8 g/dL (30.0-36.0) 12/06/22 07:40 RDW 15.5 % (12.1-15.1) H 12/06/22 07:40 Plt Count 400 10^3/cmm (130-400) 12/06/22 07:40 MPV 8.6 fL (7.4-10.4) 12/06/22 07:40 Neut % (Auto) 69.0 % 12/06/22 07:40 Lymph % (Auto) 24.7 % 12/06/22 07:40 [place] % (Auto) 3.9 % 12/06/22 07:40 Eos % (Auto) 1.7 % 12/06/22 07:40 Baso % (Auto) 0.4 % 12/06/22 07:40 Neut # (Auto) 6.88 10^3/uL (1.8-7.7) 12/06/22 07:40 Lymph # (Auto) 2.5 10^3/uL (0.8-4.8) 12/06/22 07:40 [place] # (Auto) 0.4 10^3/uL (0.2-0.9) 12/06/22 07:40 Eos # (Auto) 0.2 10^3/uL (0.0-0.8) 12/06/22 07:40 Baso # (Auto) 0.0 10^3/uL (0.0-0.1) 12/06/22 07:40 Nucleated RBC % (auto) 0 % 12/06/22 07:40 Nucleated RBCs # 0.0 /100WBC 12/06/22 07:40 Sodium 141 mmol/L (136-145) 12/06/22 07:40 Potassium 3.7 mmol/L (3.5-5.1) 12/06/22 07:40 Chloride 109 mmol/L (98-107) H 12/06/22 07:40 Carbon Dioxide 21 mmol/L (22-29) L 12/06/22 07:40 Anion Gap 14.7 (5-19) 12/06/22 07:40 BUN 10 mg/dL (6-20) 12/06/22 07:40 Creatinine 0.6 mg/dL (0.5-0.9) 12/06/22 07:40 GFR Calculation 109.1 mL/min (90-130) 12/06/22 07:40 Glucose 85 mg/dL (65-115) 12/06/22 07:40 Calculated Osmolality 290 mOsm/kg (285-295) 12/06/22 07:40 Calcium 8.5 mg/dL (8.5-10.5) 12/06/22 07:40 Total Bilirubin 0.2 mg/dL (0.15-1.2) 12/06/22 07:40 AST 10 U/L (0-32) 12/06/22 07:40 ALT 6 U/L (0-33) 12/06/22 07:40 Alkaline Phosphatase 70 U/L (35-105) 12/06/22 07:40 Total Protein 7.3 g/dL (6.6-8.7) 12/06/22 07:40 Albumin 4.3 g/dL (3.5-5.2) 12/06/22 07:40 Globulin 3.0 g/dL (1.3-4.6) 12/06/22 07:40 Lipase 20 U/L (13-60) 12/06/22 07:40 Urine Color Straw (Yellow) 12/06/22 07:35 Urine Appearance Clear (CLEAR) 12/06/22 07:35 Urine pH 6.5 (5-7) 12/06/22 07:35 Ur Specific [place] 1.010 (1.005-1.030) 12/06/22 07:35 Urine Protein Neg (Negative) 12/06/22 07:35 Urine Glucose (UA) Norm (Normal) 12/06/22 07:35 Urine Ketones Negative (Negative) 12/06/22 07:35 Urine Blood Neg (Negative) 12/06/22 07:35 Urine Nitrate Negative (Negative) 12/06/22 07:35 Urine Bilirubin Neg (Negative) 12/06/22 07:35 Urine Urobilinogen Norm mg/dL (Negative) 12/06/22 07:35 Ur Leukocyte Esterase Negative (Negative) 12/06/22 07:35 Discharge Plan Discharge Patient Disposition: Home Clinical Impression: Constipation Condition: Stable Prescriptions: New lactulose 10 gram/15 mL solution 20 g PO Q2H 2 Days Qty: 720 0RF Rx Instructions: until desired laxative effect No Action quetiapine [Seroquel] 400 mg tablet 400 mg PO BEDTIME Qty: 90 2RF magnesium oxide 500 mg capsule 500 mg PO QAM diclofenac sodium 1 % gel 2 g TOPICAL QID PRN (Reason: Pain) Hold Instructions: Resume on 12/01/20. Rx Instructions: apply to neck and head lorazepam 1 mg tablet 1 mg PO TID PRN (Reason: anxiety attacks) Qty: 90 3RF albuterol sulfate [ProAir HFA] 90 mcg/actuation HFA aerosol inhaler 2 puff INHALATION Q4H PRN (Reason: shortness of breath or wheezing) Qty: 18 2RF promethazine 25 mg tablet 25 mg PO Q6H PRN (Reason: nausea and vomiting) Qty: 30 0RF cyclobenzaprine 10 mg tablet 10 mg PO BID PRN (Reason: muscle spasm) Qty: 180 1RF venlafaxine [Effexor XR] 75 mg capsule,extended release 24hr 75 mg PO QAM Qty: 30 3RF sucralfate 1 gram tablet 1 g PO TID Qty: 90 2RF Hold Instructions: Symtoms improved hold Rx Instructions: 30 minutes before meals sumatriptan succinate 100 mg tablet See Rx Instructions .ROUTE .COMPLEX Qty: 9 0RF Dose Instruction: TAKE ONE TABLET BY MOUTH AT ONSET of HEADACHE, MAY REPEAT DOSE in TWO hours if needed, max of TWO TABLETS in 24 hours Rx Instructions: TAKE ONE TABLET BY MOUTH AT ONSET of HEADACHE, MAY REPEAT DOSE in TWO hours if needed, max of TWO TABLETS in 24 hours ferrous gluconate 324 mg (38 mg iron) tablet 324 mg PO TID Qty: 90 2RF Protonix 40 mg tablet,delayed release (DR/EC) 40 mg PO QAM Singulair 10 mg tablet 10 mg PO QAM Miralax 17 gram/dose powder 17 g PO DAILY PRN (Reason: Constipation) topiramate 100 mg tablet 100 mg PO QAM Discharge Orders: Discharge ED (Routine); Ordered 12/06/22 Ordered By: Josue Stallings Referrals: Marko Wallace, BUSINESS SYSTEMS ADVISOR-C [Primary Care Provider] - Discharge Diet: Full LIquid Discharge Activity: Resume usual activity Patient Instructions: Opioid Safety, Pain Management Activity Restrictions/Additional Instructions: You were seen today in the emergency room with severe constipation recommend that you increase your MiraLAX to twice daily. Use lactulose every 2 hours unt il desired result is achieved. There is a large amount of stool in your colon as this passes it will cause a significant amount of cramping. Follow-up with your primary care doctor. Coding Level of Care Code ED Avionics System Engineer for Yash Arias
[2022-12-06] MEDS: sodium chloride 0.9% 1,000 ML 999 ML IV (07:36)
[2022-12-06 07:37] LABS: Add Urine Microscopic? NO; Charge for UA Resulting for Rev
--- NOTE | 2022-12-06 07:37 | CT_ITS ---
WS: [id number] CT ABDOMEN AND PELVIS NONCONTRAST HISTORY: RIGHT upper quadrant pain with nausea and vomiting. TECHNIQUE: Imaging performed through the abdomen and pelvis. Coronal and sagittal reformats are submi tted. All CT scans at [facility] use at least one of these dose optimization techniques: auto mated exposure control; mA and/or kV adjustment per patient size (includes targeted exams where dose is matched to clinical indication); or iterative reconstruction. DLP: 336.90 mGy.cm COMPARISON: 11/06/2020 Lower thorax: Linear atelectasis at the lung bases. Normal size heart. No hernia. Liver: Normal size liver. No mass or bile duct dilatation. Gallbladder: Prior cholecystectomy. Mild dilatation of the common bile duct up to 10 mm. Similar to t he prior studies and probably related to the postcholecystectomy. Pancreas: Poorly visualized without IV or oral contrast. Spleen: Normal. Adrenal glands: Normal. No mass. Right kidney: Normal size kidney with no mass or hydronephrosis. Left kidney: Normal size kidney with no mass or hydronephrosis. Aorta: Normal abdominal aorta, no aneurysm or atherosclerosis. No free fluid, intraperitoneal air or significant lymphadenopathy. GI tract: Nondistended stomach. No small bowel obstruction. Severe diffuse obstipation and constipati on. Progression of inspissated fecal material since the prior study. Normal appendix. Abdominal wall: Small umbilical hernia contains fat only. Pelvis: Prior hysterectomy. No free fluid or adenopathy. Osseous structures: Bone island LEFT femoral head. CT/CT abdomen pelvis wo con [id number] IMPRESSION: 1. No acute abdominal or pelvic abnormalities are identified on this unenhance d exam. 2. No hydronephrosis or renal calcification. 3. Prior cholecystectomy and hysterectomy. 4. Diffuse severe obstipation, progressed since 2020.
--- NOTE | 2022-12-06 07:45 | ECG_ITS ---
[facility] Test Date: 2022-12-06 Pat Name: Christine Menard Department: Room: Gender: Female Consultant Electronics: : 1980 Requested By: Jouse Pinedo Order Number: [id number] Martha MD: Simeon French M.D. Measurements Intervals [place] Rate: 76 P: 137 W[place]: 130 QRS: 41 QRSD: 91 T: 89 QT: 361 QTc: 407 Interpretive Statements SINUS RHYTHM LOW QRS VOLTAGE [QRS DEFLECTION < 0.5/1.0 mV IN LIMB/CHEST LEADS] INCOMPLETE RIGHT BUNDLE BRANCH BLOCK [90+ ms QRS DURATION, TERMINAL R IN V1/V2, 40+ ms S IN I/aVL/V4/V5/V6] POSSIBLE ANTERIOR MYOCARDIAL INFARCTION , PROBABLY OLD [30 ms Q WAVE IN V3/V4, OR R < 0.2 mV IN V4] Compared to ECG 05/25/2020 13:52:55 Myocardial infarct finding now present Electronically Signed On 12-06-2022 11:53:33 CDT by Simeon French M.D. [id number]
[2022-12-06 07:50] LABS: Basophils % 0.4 %; Eosinophils # 0.2 10^3/uL (0.0-0.8); Eosinophils % 1.7 %; Hematocrit 32.5 % (37.0-47.0); Lymphocytes # 2.5 10^3/uL (0.8-4.8); Lymphocytes % 24.7 %; Mean Corpuscular HGB Conc 30.8 g/dL (30.0-36.0); Mean Corpuscular Hemoglobin 27.4 pg (28.0-34.0); Mean Platelet Volume 8.6 fL (7.4-10.4); Monocytes # 0.4 10^3/uL (0.2-0.9); Monocytes % 3.9 %; Neutrophils # 6.88 10^3/uL (1.8-7.7); Nucleated Red Blood Cells % 0 %; Platelet Count 400 10^3/cmm (130-400); Red Blood Count 3.65 10^6/uL (4.1-5.3); Red Cell Distribution Width 15.5 % (12.1-15.1)
[2022-12-06 07:55] VITALS: BP 114/77; PULSE 89; RESP 18; O2SAT 96
[2022-12-06 07:55] LABS: Bilirubin Urine Neg (Negative); Blood Urine Neg (Negative); Glucose Urine UA Norm (Normal); Ketones Urine Negative (Negative); Leukocyte Esterase Urine Negative (Negative); Nitrate Urine Negative (Negative); Protein Urine Neg (Negative); Urine Appearance Clear (CLEAR); Urine Color Straw (Yellow); Urobilinogen Urine Norm (Negative); pH Urine 6.5 (5-7)
[2022-12-06 08:13] LABS: Alanine Aminotransferase 6 U/L (0-33); Albumin Level 4.3 g/dL (3.5-5.2); Alkaline Phosphatase 70 U/L (35-105); Anion Gap 14.7 (5-19); Aspartate Amino Transferase 10 U/L (0-32); Blood Urea Nitrogen 10 mg/dL (6-20); Calcium 8.5 mg/dL (8.5-10.5); Carbon Dioxide 21 mmol/L (22-29); Chloride 109 mmol/L (98-107); Glomerular Filtration Rate 109.1 mL/min (90-130); Glucose 85 mg/dL (65-115); Lipase 20 U/L (13-60); Osmolality Calculated 290 mOsm/kg (285-295); Potassium 3.7 mmol/L (3.5-5.1); Sodium 141 mmol/L (136-145); Total Bilirubin 0.2 mg/dL (0.15-1.2); Total Protein 7.3 g/dL (6.6-8.7)
[2022-12-06] MEDS: acetaminophen 500 mg Tablet 1000 MG PO (08:38)
[2022-12-06 08:55] VITALS: BP 98/78; PULSE 96; RESP 18; O2SAT 96
[2022-12-06 09:45] VITALS: BP 118/76; PULSE 80; RESP 16; O2SAT 92
== END 2022-12-06 09:49 | disposition home or self-care (01) ==
PROVIDERS: Emergency Provider Family Medicine; PCP Nurse Practitioner
DX: K59.00 Constipation, unspecified (principal); Z79.899 Other long term (current) drug therapy
CPT/HCPCS: 74176; 80053; 81003; 83690; 85025; 93005; 96360; 99285; J7030

== ENCOUNTER → 2022-12-09 10:58 | Outpatient (BNVA) | payer OTHER, SELFPAY | PROVIDERS: PCP Nurse Practitioner; Visit Provider Nurse Practitioner Family | DX: E61.1 Iron deficiency (principal) | CPT/HCPCS: 85025 ==

== ENCOUNTER 2022-12-15 15:36 | Emergency (ER) | payer OTHER, SELFPAY ==
[2022-12-15] VITALS (8 sets, daily range): BP systolic 126–148; BP diastolic 69–97; PULSE 73–83; RESP 15–21; TEMP 36.9; O2SAT 98–100
--- NOTE | 2022-12-15 15:50 | XR_ITS ---
WS: [id number] EXAMINATION: XR chest 1V portable [id number] REASON FOR EXAM: Chest Pain COMPARISON: Previous study ORDER DATE: 12/15/2022 3:58 PM TECHNIQUE: A single, portable frontal chest x-ray was obtained. X-RAY FINDINGS: The lungs are clear. Pleural spaces are clear. No pleural effusions or pneumothorax. Cardiomediastinal silhouette is normal. No evidence for pulmonary edema. Soft tissue and osseous structures are unremarkable. No tubes or lines are present. XR/XR chest 1V portable [id number] IMPRESSION: Unremarkable frontal portable chest x-ray.
--- NOTE | 2022-12-15 16:11 | ECG_ITS ---
[facility] Test Date: 2022-12-15 Pat Name: Christine Menard Department: Room: Gender: Female Batch Tester: : 1980 Requested By: Josue Pinedo Order Number: [id number] Martha MD: Cassandra Gonzalez M.D. Measurements Intervals [place] Rate: 71 P: 65 OR: 139 QRS: 58 QRSD: 90 T: 67 QT: 385 QTc: 420 Interpretive Statements SINUS RHYTHM LOW QRS VOLTAGE IN PRECORDIAL LEADS [QRS DEFLECTION < 1.0 mV IN CHEST LEADS] POSSIBLE RIGHT VENTRICULAR CONDUCTION DELAY [RSR (QR) IN V1/V2] SEPTAL MYOCARDIAL INFARCTION , OF INDETERMINATE AGE [40+ ms Q WAVE IN V1/V2] Compared to ECG 12/06/2022 07:45:40 Incomplete right bundle-branch block no longer present Myocardial infarct finding still present Electronically Signed On 12-15-2022 21:09:40 CDT by Cassandra Gonzalez M.D. [id number]
[2022-12-15 16:13] LABS: Basophils % 0.4 %; Eosinophils # 0.2 10^3/uL (0.0-0.8); Eosinophils % 1.6 %; Hematocrit 30.4 % (37.0-47.0); Hemoglobin 9.4 g/dL (11.5-15.3); Lymphocytes # 2.5 10^3/uL (0.8-4.8); Lymphocytes % 23.1 %; Mean Corpuscular HGB Conc 30.9 g/dL (30.0-36.0); Mean Corpuscular Hemoglobin 27.6 pg (28.0-34.0); Mean Corpuscular Volume 89.4 fl (81-99); Monocytes # 0.5 10^3/uL (0.2-0.9); Monocytes % 4.4 %; Neutrophils # 7.69 10^3/uL (1.8-7.7); Neutrophils % 70.1 %; Nucleated Red Blood Cells % 0 %; Platelet Count 369 10^3/cmm (130-400); Red Cell Distribution Width 17.7 % (12.1-15.1)
--- NOTE | 2022-12-15 16:34 | W.ED.CHESTPA ---
HPI - Chest Pain General: Chief Complaint: Chest Pain Stated Complaint: Chest Pain Time Seen by Provider: 12/15/22 15:54 Source: patient Mode of arrival: ambulatory History of Present Illness: 42-year-old female who presents to the emergency complaining of chest pain. She has several episodes this past week of chest discomfort. She notes its worse when she takes a deep breath all the episodes have occurred while she was at rest radiates into her back but not into her neck or arm she has not had any associated diaphoresis nausea or vomiting. She has no known history of diabetes mellitus and no previous history of arrhythmias or cardiac disease. She does not smoke no chronic respiratory illnesses no recent fever sweats or chills or productive cough. MD complaint: chest pain Onset (ago): minute(s) Timing of current episode: episodic Onset: during rest Pain location: substernal Pain radiation: none Severity: mild Quality: tightness Relieving factors: nothing Exacerbating factors: nothing Associated symptoms: Deny abdominal pain, diaphoresis, dyspnea, fever(s), leg edema, nausea, palpitations, sense of impending doom, syncope or vomiting Treatment prior to arrival: none Review of Systems Const: Denies: fever(s), chills, fatigue, malaise or diaphoresis ENMT: Denies: throat pain, ear or mastoid pain, nasal discharge or nasal congestion Card: Reports: chest pain; Denies: palpitations or syncope Resp: Denies: dyspnea GI: Denies: abdominal pain, nausea or vomiting : Denies: flank pain, difficulty voiding, dysuria, urinary frequency or urinary urgency Skin/Breast: Denies: rash or pruritus PFS ED PFSH: Medical History Bereavement Mother Sep 03, 2017. Chronic peptic ulcer Chronic post-traumatic stress disorder Environmental and seasonal allergies Esophagitis Gastritis Gastro-esophageal reflux disease without esophagitis History of PSVT (paroxysmal supraventricular tachycardia) Major depressive disorder, recurrent episode, moderate with anxious distress Palpable mass of lower back Panic disorder without agoraphobia Psychiatric care Surgical History History of cholecystectomy (~2000) History of partial hysterectomy History of pelvic surgery due to adhesion History of right oophorectomy History of umbilical hernia repair Three different times 2004 x2, 2013 Family History Other Diabetes Heart disease Hypertension Social History Smoking and tobacco status: former smoker Second hand smoke exposure: No Smoking risk assessment/counseling performed?: No Alcohol intake: never Desire information about alcohol rehabilitation?: No Counseling given: No Desire information about substance/drug rehabilitation?: No Counseling given: No Adopted: No Caregiver/support person: No Lives independently: Yes Household members: spouse and children Housing: House Marital status: Current occupational status: employed Current [place] [employer] [place] Current gender identity: Female Physical Exam Const: GENERAL APPEARANCE: cooperative and comfortable ORIENTATION/CONSCIOUSNESS: Yes awake, Yes oriented to person, Yes oriented to place and Yes oriented to time HENMT: COMMON NORMALS: normocephalic, atraumatic and hearing grossly normal bilaterally HEAD & SCALP: normocephalic and atraumatic Resp: COMMON NORMALS: normal respiratory effort, No retractions, No use of accessory muscles and clear to auscultation bilaterally AUSCULTATION: clear to auscultation bilaterally Cardio: COMMON NORMALS: regular rate, regular rhythm and No murmurs present (Cardio) RATE: regular rate RHYTHM: regular rhythm GI: COMMON NORMALS: No hepatosplenomegaly present AUSCULTATION: Yes normoactive bowel sounds PALPATION: Yes Tenderness to palpation present (GI) Details: RLQ, No Guarding due to palpation present (GI) and Yes No hepatosplenomegaly present Extremity: COMMON NORMALS: normal to inspection, capillary refill normal, no clubbing, cyanosis or edema, no calf tenderness and no pedal edema Neuro: SENSORIUM/ORIENTATION: Yes oriented to person, Yes oriented to place and Yes oriented to time Skin: COMMON NORMALS: no rashes or lesions noted GENERAL SKIN EXAM: no rashes or lesions noted Course Vital Signs: Vital signs: Vital Signs Temperature 98.5 F 12/15/22 15:42 Pulse Rate 78 12/15/22 18:53 Respiratory Rate 20 H 12/15/22 18:53 Blood Pressure 126/97 12/15/22 18:53 Pulse Oximetry 99 12/15/22 18:53 Oxygen Delivery Me thod Room Air 12/15/22 15:42 MDM - Chest Pain Medical Decision Making Labs imaging and EKG reviewed in the chart. Patient does have some mild anemia but no recent sources of blood loss. Her chest pain is resolved at this time her cardiac enzymes are negative. Pain is exacerbated by deep inspiration and somewhat by palpitation. We will discharge patient home she is feeling better she not have any chest pain currently she has recurrent symptoms return. She has not been hypoxic or tachycardic. Chest x-ray reviewed there is no pneumothorax no pneumonia. No widening of the mediastinum. Medical Records I reviewed the patient's medical records. Lab Data I reviewed the patient's lab results. 12/15/22 15:50 12/15/22 15:50 Radiology Impressions Chest X-Ray 12/15/22 15:50 IMPRESSION: Unremarkable frontal portable chest x-ray. Laboratory Results WBC 11.0 10^3/uL (4.0-10.0) H 12/15/22 15:50 RBC 3.40 10^6/uL (4.1-5.3) L 12/15/22 15:50 Hgb 9.4 g/dL (11.5-15.3) L 12/15/22 15:50 Hct 30.4 % (37.0-47.0) L 12/15/22 15:50 MCV 89.4 fl (81-99) 12/15/22 15:50 MCH 27.6 pg (28.0-34.0) L 12/15/22 15:50 MCHC 30.9 g/dL (30.0-36.0) 12/15/22 15:50 RDW 17.7 % (12.1-15.1) H 12/15/22 15:50 Plt Count 369 10^3/cmm (130-400) 12/15/22 15:50 MPV 9.0 fL (7.4-10.4) 12/15/22 15:50 Neut % (Auto) 70.1 % 12/15/22 15:50 Lymph % (Auto) 23.1 % 12/15/22 15:50 [place] % (Auto) 4.4 % 12/15/22 15:50 Eos % (Auto) 1.6 % 12/15/22 15:50 Baso % (Auto) 0.4 % 12/15/22 15:50 Neut # (Auto) 7.69 10^3/uL (1.8-7.7) 12/15/22 15:50 Lymph # (Auto) 2.5 10^3/uL (0.8-4.8) 12/15/22 15:50 [place] # (Auto) 0.5 10^3/uL (0.2-0.9) 12/15/22 15:50 Eos # (Auto) 0.2 10^3/uL (0.0-0.8) 12/15/22 15:50 Baso # (Auto) 0.0 10^3/uL (0.0-0.1) 12/15/22 15:50 Nucleated RBC % (auto) 0 % 12/15/22 15:50 Nucleated RBCs # 0.0 /100WBC 12/15/22 15:50 Sodium 139 mmol/L (136-145) 12/15/22 15:50 Potassium 3.6 mmol/L (3.5-5.1) 12/15/22 15:50 Chloride 104 mmol/L (98-107) 12/15/22 15:50 Carbon Dioxide 23 mmol/L (22-29) 12/15/22 15:50 Anion Gap 15.6 (5-19) 12/15/22 15:50 BUN 9 mg/dL (6-20) 12/15/22 15:50 Creatinine 0.7 mg/dL (0.5-0.9) 12/15/22 15:50 GFR Calculation 91.3 mL/min (90-130) 12/15/22 15:50 Glucose 95 mg/dL (65-115) 12/15/22 15:50 Calculated Osmolality 286 mOsm/kg (285-295) 12/15/22 15:50 Calcium 8.4 mg/dL (8.5-10.5) L 12/15/22 15:50 Total Bilirubin 0.2 mg/dL (0.15-1.2) 12/15/22 15:50 AST 13 U/L (0-32) 12/15/22 15:50 ALT 7 U/L (0-33) 12/15/22 15:50 Alkaline Phosphatase 69 U/L (35-105) 12/15/22 15:50 Troponin T Baseline 6 ng/L (0-10) 12/15/22 15:50 Troponin T 120 Minute 6.93 ng/L (0-10) 12/15/22 17:42 Delta Troponin T 0.93 ABS# (0-10) 12/15/22 17:42 NT-Pro-B Natriuret Pep 125 pg/mL (0-125) 12/15/22 15:50 Total Protein 6.5 g/dL (6.6-8.7) L 12/15/22 15:50 Albumin 3.7 g/dL (3.5-5.2) 12/15/22 15:50 Globulin 2.8 g/dL (1.3-4.6) 12/15/22 15:50 Discharge Plan Discharge Patient Disposition: Home Clinical Impression: Musculoskeletal chest pain Condition: Stable Prescriptions: New diclofenac sodium 75 mg tablet,delayed release (DR/EC) 75 mg PO Q12H PRN (Reason: pain) Qty: 20 0RF No Action quetiapine [Seroquel] 400 mg tablet 400 mg PO BEDTIME Qty: 90 2RF magnesium oxide 500 mg capsule 500 mg PO QAM diclofenac sodium 1 % gel 2 g TOPICAL QID PRN (Reason: Pain) Hold Instructions: Resume on 12/01/20. Rx Instructions: apply to neck and head lorazepam 1 mg tablet 1 mg PO TID PRN (Reason: anxiety attacks) Qty: 90 3RF albuterol sulfate [ProAir HFA] 90 mcg/actuation HFA aerosol inhaler 2 puff INHALATION Q4H PRN (Reason: shortness of breath or wheezing) Qty: 18 2RF promethazine 25 mg tablet 25 mg PO Q6H PRN (Reason: nausea and vomiting) Qty: 30 0RF venlafaxine [Effexor XR] 75 mg capsule,extended release 24hr 75 mg PO QAM Qty: 30 3RF sucralfate 1 gram tablet 1 g PO TID Qty: 90 2RF Hold Instructions: Symtoms improved hold Rx Instructions: 30 minutes before meals ferrous gluconate 324 mg (38 mg iron) tablet 324 mg PO TID Qty: 90 2RF ondansetron HCl 8 mg tablet 8 mg PO Q8H PRN (Reason: nausea and vomiting) Qty: 30 0RF sumatriptan succinate 100 mg tablet See Rx Instructions .ROUTE .COMPLEX Qty: 9 0RF Dose Instruction: TAKE ONE TABLET BY MOUTH AT ONSET of HEADACHE, MAY REPEAT DOSE in TWO hours if needed, max of TWO TABLETS in 24 hours Rx Instructions: TAKE ONE TABLET BY MOUTH AT ONSET of HEADACHE, MAY REPEAT DOSE in TWO hours if needed, max of TWO TABLETS in 24 hours topiramate 100 mg tablet 100 mg PO QAM Qty: 90 0RF cyclobenzaprine 10 mg tablet 10 mg PO BID PRN (Reason: muscle spasm) Qty: 180 0RF Protonix 40 mg tablet,delayed release (DR/EC) 40 mg PO QAM Singulair 10 mg tablet 10 mg PO QAM Miralax 17 gram/dose powder 17 g PO DAILY PRN (Reason: Constipation) Discharge Orders: Discharge ED (Routine); Ordered 12/15/22 Ordered By: Josue Stallings Referrals: Marko Wallace, [facility] [Primary Care Provider] - Discharge Diet: Usual diet Discharge Activity: Resume usual activity Patient Instructions: Opioid Safety, Pain Management Activity Restrictions/Additional Instructions: You are seen today for chest pain. Your oxygen saturations are normal and your heart rate was normal. Your cardiac enzymes and EKG are unremarkable. The chest pain is reproducible with palpation and deep inspiration. This indicates more musculoskeletal in nature recommend using diclofenac as needed. Coding Level of Care Code ED [employer] for Yash Arias
[2022-12-15 16:36] LABS: Troponin(5th) Baseline 6 ng/L (0-10)
[2022-12-15 16:46] LABS: Alanine Aminotransferase 7 U/L (0-33); Albumin Level 3.7 g/dL (3.5-5.2); Alkaline Phosphatase 69 U/L (35-105); Blood Urea Nitrogen 9 mg/dL (6-20); Calcium 8.4 mg/dL (8.5-10.5); Carbon Dioxide 23 mmol/L (22-29); Chloride 104 mmol/L (98-107); Globulin 2.8 g/dL (1.3-4.6); Glomerular Filtration Rate 91.3 mL/min (90-130); Glucose 95 mg/dL (65-115); NT Pro B Type Natriuretic Pept 125 pg/mL (0-125); Osmolality Calculated 286 mOsm/kg (285-295); Sodium 139 mmol/L (136-145); Total Bilirubin 0.2 mg/dL (0.15-1.2); Total Protein 6.5 g/dL (6.6-8.7)
[2022-12-15 16:49] LABS: Anion Gap 15.6 (5-19); Aspartate Amino Transferase 13 U/L (0-32); Potassium 3.6 mmol/L (3.5-5.1)
[2022-12-15] MEDS: ondansetron 2 mg/ML SDV 2 mL 4 MG IVP (17:27)
[2022-12-15] MEDS: morphine 4 mg/mL SDV 1 mL IVP (17:27)
--- NOTE | 2022-12-15 17:50 | ECG_ITS ---
[facility] Test Date: 2022-12-15 Pat Name: Christine Menard Department: Room: Gender: Female Crm Functional Analyst: : 1980 Requested By: Josue Pinedo Order Number: [id number] Martha MD: Cassandra Gonzalez M.D. Measurements Intervals [place] Rate: 71 P: 55 MA: 147 QRS: 20 QRSD: 96 T: 53 QT: 367 QTc: 401 Interpretive Statements SINUS RHYTHM POSSIBLE LEFT ATRIAL ENLARGEMENT [-0.1mV P-WAVE IN V1/V2] LOW QRS VOLTAGE IN PRECORDIAL LEADS [QRS DEFLECTION < 1.0 mV IN CHEST LEADS] INCOMPLETE RIGHT BUNDLE BRANCH BLOCK [90+ ms QRS DURATION, TERMINAL R IN V1/V2, 40+ ms S IN I/aVL/V4/V5/V6] Compared to ECG 12/15/2022 16:11:57 Incomplete right bundle-branch block now present Myocardial infarct finding no longer present Electronically Signed On 12-15-2022 21:15:02 CDT by Cassandra Gonzalez M.D. [id number]
[2022-12-15 18:17] LABS: Troponin 5 2HR 6.93 ng/L (0-10)
[2022-12-15 18:29] LABS: Troponin 5 2HR Delta 0.93 ABS# (0-10)
== END 2022-12-15 18:55 | disposition home or self-care (01) ==
PROVIDERS: Emergency Provider Family Medicine; PCP Nurse Practitioner
DX: R07.9 Chest pain, unspecified (principal); Z87.891 Personal history of nicotine dependence
CPT/HCPCS: 36415; 71045; 80053; 83880; 84484; 85025; 93005; 96374; 96375; 99285; J2270; J2405

== ENCOUNTER 2023-01-14 05:56 | Emergency (ER) | payer OTHER, SELFPAY ==
[2023-01-14] VITALS (12 sets, daily range): BP systolic 96–126; BP diastolic 34–60; PULSE 89–113; RESP 15–36; TEMP 36.8; O2SAT 96–100; BMI 24.0
--- NOTE | 2023-01-14 06:06 | ECG_ITS ---
[facility] Test Date: 2023-01-14 Pat Name: Christine Menard Department: Room: Gender: Female Information Assoc: : 1980 Requested By: Josue Pinedo Order Number: [id number] Martha MD: Cassandra Gonzalez M.D. Measurements Intervals [place] Rate: 89 P: 64 [place]: 146 QRS: 42 QRSD: 93 T: 52 QT: 376 QTc: 459 Interpretive Statements SINUS RHYTHM POSSIBLE LEFT ATRIAL ENLARGEMENT [-0.1mV P-WAVE IN V1/V2] LOW QRS VOLTAGE IN PRECORDIAL LEADS [QRS DEFLECTION < 1.0 mV IN CHEST LEADS] INCOMPLETE RIGHT BUNDLE BRANCH BLOCK [90+ ms QRS DURATION, TERMINAL R IN V1/V2, 40+ ms S IN I/aVL/V4/V5/V6] Compared to ECG 12/15/2022 17:28:42 No significant changes Electronically Signed On 01-14-2023 19:20:16 CDT by Cassandra Gonzalez M.D. [id number]
--- NOTE | 2023-01-14 06:21 | XRR_ITS ---
PROCEDURE INFORMATION: Exam: XR Abdomen Exam date and time: 01/14/2023 6:51 AM Age: 42 years old Clinical indication: Abdominal pain; Epigastric; Additional info: Epigastric pain TECHNIQUE: Imaging protocol: Radiologic exam of the abdomen. Views: 2 Views. Upright and supine views. COMPARISON: CR XR chest 1V portable [id number] 12/15/2022 4:03 PM FINDINGS: Lungs: There are some patchy opacities that superimposed over the left hemidiaphragm possibly representing atelectasis although basilar infiltrate and pneumonia cannot be entirely excluded. Gastrointestinal tract: Abundant stool is present within the colon. Intraperitoneal space: Normal. No free air. Bones/joints: Unremarkable for age. XR/XR acute abdomen series [id number] IMPRESSION: 1. Patchy opacities superimposed over the left hemidiaphragm compatible with atelectasis. A left basilar infiltrate and pneumonia cannot be entirely excluded. 2. Abundant stool is present within the colon.
[2023-01-14 06:28] LABS: Basophils % 0.3 %; Eosinophils # 0.2 10^3/uL (0.0-0.8); Eosinophils % 1.4 %; Hematocrit 37.1 % (37.0-47.0); Hemoglobin 11.6 g/dL (11.5-15.3); Lymphocytes # 1.7 10^3/uL (0.8-4.8); Lymphocytes % 13.5 %; Mean Corpuscular HGB Conc 31.3 g/dL (30.0-36.0); Mean Corpuscular Hemoglobin 28.9 pg (28.0-34.0); Mean Corpuscular Volume 92.5 fl (81-99); Mean Platelet Volume 9.2 fL (7.4-10.4); Monocytes # 0.5 10^3/uL (0.2-0.9); Monocytes % 3.6 %; Neutrophils # 10.33 10^3/uL (1.8-7.7); Neutrophils % 80.9 %; Nucleated Red Blood Cells % 0 %; Platelet Count 356 10^3/cmm (130-400); Red Blood Count 4.01 10^6/uL (4.1-5.3); White Blood Count 12.8 10^3/uL (4.0-10.0)
[2023-01-14 06:38] LABS: HCG, Serum Qual Negative (Negative)
[2023-01-14 06:45] LABS: Add Urine Microscopic? NO; Charge for UA Resulting for Rev
[2023-01-14 06:46] LABS: Troponin(5th) Baseline 6 ng/L (0-10)
[2023-01-14 06:55] LABS: Alanine Aminotransferase 6 U/L (0-33); Alkaline Phosphatase 82 U/L (35-105); Anion Gap 15.5 (5-19); Aspartate Amino Transferase 9 U/L (0-32); Blood Urea Nitrogen 12 mg/dL (6-20); Calcium 8.7 mg/dL (8.5-10.5); Carbon Dioxide 20 mmol/L (22-29); Chloride 106 mmol/L (98-107); Globulin 2.8 g/dL (1.3-4.6); Glomerular Filtration Rate 91.3 mL/min (90-130); Glucose 92 mg/dL (65-115); Lipase 12 U/L (13-60); NT Pro B Type Natriuretic Pept 99 pg/mL (0-125); Osmolality Calculated 285 mOsm/kg (285-295); Potassium 3.5 mmol/L (3.5-5.1); Sodium 138 mmol/L (136-145); Total Bilirubin 0.2 mg/dL (0.15-1.2); Total Protein 6.8 g/dL (6.6-8.7)
[2023-01-14 07:07] LABS: Urine Appearance Clear (CLEAR); Urine Color Dark Yellow (Yellow)
[2023-01-14 07:08] LABS: Bilirubin Urine Neg (Negative); Blood Urine Neg (Negative); Glucose Urine UA Norm (Normal); Ketones Urine Negative (Negative); Leukocyte Esterase Urine Negative (Negative); Nitrate Urine Negative (Negative); Protein Urine Neg (Negative); Urobilinogen Urine 1 mg/dL (Negative); pH Urine 5 (5-7)
[2023-01-14] MEDS: morphine 4 mg/mL SDV 1 mL 2 MG IVP (07:44)
--- NOTE | 2023-01-14 07:49 | CTR_ITS ---
PROCEDURE INFORMATION: Exam: CT Abdomen And Pelvis Without Contrast Exam date and time: 01/14/2023 8:00 AM Age: 42 years old Clinical indication: Abdominal pain; Epigastric; Prior surgery; Surgery date: 6+ months; Surgery type: Gb TECHNIQUE: Imaging protocol: Computed tomography of the abdomen and pelvis without contrast. Radiation optimization: All CT scans at this facility use at least one of these dose optimization techniques: automated exposure control; mA and/or kV adjustment per patient size (includes targeted exams where dose is matched to clinical indication); or iterative reconstruction. REPORTING DATA: Count of CT and Cardiac NM exams in prior 12 months: This patient has received [address] and 0 known cardiac nuclear medicine studies in the 12 months prior to the current study. COMPARISON: CT abdomen pelvis wo con [id number] 12/06/2022 7:51 AM RADIATION DOSE METRICS: Total DLP (mGy-cm): 377.87 FINDINGS: Lungs: A calcified granuloma is seen in the right lung base anteriorly measuring 5.2 mm. There are strandy and patchy opacities present in the lung bases bilaterally, left more prominent than right likely representing atelectasis although bilateral basilar infiltrates and pneumonia cannot be excluded. Liver: Normal. No mass. Gallbladder and bile ducts: Status post cholecystectomy. The common bile duct is prominent measuring 16 mm in diameter likely compensatory to cholecystectomy. Pancreas: Normal. No ductal dilation. Spleen: Normal. No splenomegaly. Adrenal glands: Normal. No mass. Kidneys and ureters: There is a punctate nonobstructing calculus seen in the upper pole of the left kidney. Stomach and bowel: Moderate stool is present within the colon. There is some hyperdense material seen within the gastric lumen possibly representing ingested material. However, in the absence of ingested material the hyperdense intraluminal material could represent hemorrhagic material. Appendix: No evidence of appendicitis. Intraperitoneal space: Unremarkable. No free air. No significant fluid collection. Vasculature: Unremarkable. No abdominal aortic aneurysm. Lymph nodes: Unremarkable. No enlarged lymph nodes. Urinary bladder: Unremarkable as visualized. Reproductive: Status post hysterectomy. There are 2 cystic mass seen associated with the left ovary each measuring approximately 2.4 cm likely representing benign or functional ovarian cysts. Bones/joints: Unremarkable. No acute fracture. Soft tissues: Unremarkable. CT/CT abdomen pelvis wo con [id number] IMPRESSION: 1. Abundant stool is present within the colon. 2. There are 2 benign or functional ovarian cysts present within the left ovary each measuring 2.4 cm. No further workup is needed. 3. Punctate nonobstructing calculus in the upper pole of the left kidney. 4. Prominent common bile duct likely compensatory to cholecystectomy. 5. Hyperdense material seen within the gastric lumen may represent ingested material. In the absence ingested material hemorrhagic material cannot be excluded.
--- NOTE | 2023-01-14 08:17 | W.ED.ABDPA2 ---
HPI - Abdominal Pain General: Chief Complaint: Abdominal Pain Stated Complaint: abd pain Time Seen by Provider: 01/14/23 06:06 Source: patient Mode of arrival: ambulatory History of Present Illness: 42-year-old female presents emergency room complaining of abdominal pain began yesterday with some chest pain chest pain resolved now she is complaining of periumbilical pain no vomiting or diarrhea she previously has had abdominal surgeries including hernia or mesh repair and then subsequent removal of the mesh. She denies any fever sweats chills no dysuria urgency or frequency no vomiting or diarrhea. She has a history of SVT but never had any palpitations rapid heart rate that she noticed no difficulty breathing no fever. MD elicited complaint: abdominal pain Pertinent past history: none Onset (ago): day(s) (1) Pain Consistency: constant Location: Periumbilical Severity: moderate Quality: cramping Radiation: none Exacerbating factors: nothing Relieving factors: nothing Associated Symptoms: Reports nausea; Denies anorexia, belching, bloating, change in bowel habits, change in stool character, chills, coffee ground emesis, constipation, GI cramping, diarrhea, dyspepsia, dysuria, excessive flatus, fever(s), heartburn, hematochezia, hematuria, hematemesis, fecal incontinence, loose stools, melena, poor appetite, syncope and vomiting Review of Systems Const: Denies: fever(s), chills, fatigue or malaise ENMT: Denies: throat pain, ear or mastoid pain, nasal discharge or nasal congestion Card: Denies: chest pain, palpitations, irregular heart rhythm, edema or syncope Resp: Denies: dyspnea, productive cough or non-productive cough GI: Reports: abdominal pain and nausea; Denies: vomiting, hematemesis, coffee ground emesis, heartburn, diarrhea, constipation, bloating, GI cramping, belching, excessive flatus, fecal incontinence, change in bowel habits, change in stool character, hematochezia or melena : Denies: dysuria, urinary frequency, urinary urgency or hematuria Skin/Breast: Denies: rash or pruritus [facility] ED PFSH: Medical History Bereavement Mother Sep 03, 2017. Chronic peptic ulcer Chronic post-traumatic stress disorder Environmental and seasonal allergies Esophagitis Gastritis Gastro-esophageal reflux disease without esophagitis History of PSVT (paroxysmal supraventricular tachycardia) Major depressive disorder, recurrent episode, moderate with anxious distress Palpable mass of lower back Panic disorder without agoraphobia Psychiatric care Surgical History History of cholecystectomy (~2000) History of partial hysterectomy History of pelvic surgery due to adhesion History of right oophorectomy History of umbilical hernia repair Three different times 2004 x2, 2012 Family History Other Diabetes Heart disease Hypertension Social History Smoking and tobacco status: former smoker Second hand smoke exposure: No Smoking risk assessment/counseling performed?: No Alcohol intake: never Desire information about alcohol rehabilitation?: No Counseling given: No Substance/Drug Use: never Desire information about substance/drug rehabilitation?: No Counseling given: No Adopted: No Caregiver/support person: No Lives independently: Yes Household members: spouse and children Housing: House Marital status: Current occupational status: employed Current occupation: [employer] Do you think of yourself as: Straight/Heterosexual Current gender identity: Female Physical Exam Const: GENERAL APPEARANCE: cooperative ORIENTATION/CONSCIOUSNESS: Yes awake, Yes oriented to person, Yes oriented to place and Yes oriented to time HENMT: COMMON NORMALS: normocephalic, atraumatic and hearing grossly normal bilaterally HEAD & SCALP: normocephalic and atraumatic Resp: COMMON NORMALS: normal respiratory effort, No retractions, No use of accessory muscles and clear to auscultation bilaterally AUSCULTATION: clear to auscultation bilaterally Cardio: COMMON NORMALS: regular rate, regular rhythm and No murmurs present (Cardio) RATE: regular rate RHYTHM: regular rhythm GI: COMMON NORMALS: No hepatosplenomegaly present AUSCULTATION: Yes normoactive bowel sounds PALPATION: Yes Tenderness to palpation present (GI) (Diffuse), No Guarding due to palpation present (GI) and Yes No hepatosplenomegaly present Extremity: COMMON NORMALS: normal to inspection, capillary refill normal, no clubbing, cyanosis or edema, no calf tenderness and no pedal edema Neuro: SENSORIUM/ORIENTATION: Yes oriented to person, Yes oriented to place and Yes oriented to time Skin: COMMON NORMALS: no rashes or lesions noted GENERAL SKIN EXAM: no rashes or lesions noted Course Vital Signs: Vital signs: Vital Signs Temperature 98.2 F 01/14/23 06:02 Pulse Rate 96 01/14/23 07:45 Respiratory Rate 22 H 01/14/23 07:45 Blood Pressure 99/48 01/14/23 08:00 Pulse Oximetry 98 01/14/23 06:34 Oxygen Delivery Me thod Room Air 01/14/23 06:34 MDM - Abdominal Pain Medical Decision Making Patient has had chronic constipation issues in the past. No significant abnormalities on her laboratory test. She has intermittent wavelike cramping pains. CT shows large amount of retained stool and air in the colon throughout the entire large colon. No perforation no abscess no signs of UTI or pyelonephritis or nephrolithiasis. Discharge home increase her MiraLAX and use lactulose every 2 hours until desired results achieved. Medical Records I reviewed the patient's medical records. Lab Data I reviewed the patient's lab results. 01/14/23 06:11 01/14/23 06:11 Labs/Radiology: Radiology Impressions Chest/Abdomen X-ray 01/14/23 06:21 IMPRESSION: 1. Patchy opacities superimposed over the left hemidiaphragm compatible with atelectasis. A left basilar infiltrate and pneumonia cannot be entirely excluded. 2. Abundant stool is present within the colon. Abdomen/Pelvis CT 01/14/23 07:49 IMPRESSION: 1. Abundant stool is present within the colon. 2. There are 2 benign or functional ovarian cysts present within the left ovary each measuring 2.4 cm. No further workup is needed. 3. Punctate nonobstructing calculus in the upper pole of the left kidney. 4. Prominent common bile duct likely compensatory to cholecystectomy. 5. Hyperdense material seen within the gastric lumen may represent ingested material. In the absence ingested material hemorrhagic material cannot be excluded. Laboratory Results WBC 12.8 10^3/uL (4.0-10.0) H 01/14/23 06:11 RBC 4.01 10^6/uL (4.1-5.3) L 01/14/23 06:11 Hgb 11.6 g/dL (11.5-15.3) 01/14/23 06:11 Hct 37.1 % (37.0-47.0) 01/14/23 06:11 MCV 92.5 fl (81-99) 01/14/23 06:11 MCH 28.9 pg (28.0-34.0) 01/14/23 06:11 MCHC 31.3 g/dL (30.0-36.0) 01/14/23 06:11 RDW 19.0 % (12.1-15.1) H 01/14/23 06:11 Plt Count 356 10^3/cmm (130-400) 01/14/23 06:11 MPV 9.2 fL (7.4-10.4) 01/14/23 06:11 Neut % (Auto) 80.9 % 01/14/23 06:11 Lymph % (Auto) 13.5 % 01/14/23 06:11 Pender % (Auto) 3.6 % 01/14/23 06:11 Eos % (Auto) 1.4 % 01/14/23 06:11 Baso % (Auto) 0.3 % 01/14/23 06:11 Neut # (Auto) 10.33 10^3/uL (1.8-7.7) H 01/14/23 06:11 Lymph # (Auto) 1.7 10^3/uL (0.8-4.8) 01/14/23 06:11 Pender # (Auto) 0.5 10^3/uL (0.2-0.9) 01/14/23 06:11 Eos # (Auto) 0.2 10^3/uL (0.0-0.8) 01/14/23 06:11 Baso # (Auto) 0.0 10^3/uL (0.0-0.1) 01/14/23 06:11 Nucleated RBC % (auto) 0 % 01/14/23 06:11 Nucleated RBCs # 0.0 /100WBC 01/14/23 06:11 Sodium 138 mmol/L (136-145) 01/14/23 06:11 Potassium 3.5 mmol/L (3.5-5.1) 01/14/23 06:11 Chloride 106 mmol/L (98-107) 01/14/23 06:11 Carbon Dioxide 20 mmol/L (22-29) L 01/14/23 06:11 Anion Gap 15.5 (5-19) 01/14/23 06:11 BUN 12 mg/dL (6-20) 01/14/23 06:11 Creatinine 0.7 mg/dL (0.5-0.9) 01/14/23 06:11 GFR Calculation 91.3 mL/min (90-130) 01/14/23 06:11 Glucose 92 mg/dL (65-115) 01/14/23 06:11 Calculated Osmolality 285 mOsm/kg (285-295) 01/14/23 06:11 Calcium 8.7 mg/dL (8.5-10.5) 01/14/23 06:11 Total Bilirubin 0.2 mg/dL (0.15-1.2) 01/14/23 06:11 AST 9 U/L (0-32) 01/14/23 06:11 ALT 6 U/L (0-33) 01/14/23 06:11 Alkaline Phosphatase 82 U/L (35-105) 01/14/23 06:11 Troponin T Baseline 6 ng/L (0-10) 01/14/23 06:11 Troponin T 120 Minute 6.00 ng/L (0-10) 01/14/23 08:14 NT-Pro-B Natriuret Pep 99 pg/mL (0-125) 01/14/23 06:11 Total Protein 6.8 g/dL (6.6-8.7) 01/14/23 06:11 Albumin 4.0 g/dL (3.5-5.2) 01/14/23 06:11 Globulin 2.8 g/dL (1.3-4.6) 01/14/23 06:11 Lipase 12 U/L (13-60) L 01/14/23 06:11 HCG, Qual Negative (Negative) 01/14/23 06:11 Urine Color Dark yellow (Yellow) 01/14/23 06:31 Urine Appearance Clear (CLEAR) 01/14/23 06:31 Urine pH 5 (5-7) 01/14/23 06:31 Ur Specific Richardson 1.020 (1.005-1.030) 01/14/23 06:31 Urine Protein Neg (Negative) 01/14/23 06:31 Urine Glucose (UA) Norm (Normal) 01/14/23 06:31 Urine Ketones Negative (Negative) 01/14/23 06:31 Urine Blood Neg (Negative) 01/14/23 06:31 Urine Nitrate Negative (Negative) 01/14/23 06:31 Urine Bilirubin Neg (Negative) 01/14/23 06:31 Urine Urobilinogen 1 mg/dL (Negative) H 01/14/23 06:31 Ur Leukocyte Esterase Negative (Negative) 01/14/23 06:31 Discharge Plan Discharge Patient Disposition: Home Clinical Impression: Chronic constipation Condition: Stable Prescriptions: New lactulose 20 gram/30 mL solution 30 ml PO Q2H 3 Days Qty: 1080 0RF Rx Instructions: until desired laxative effect No Action quetiapine [Seroquel] 400 mg tablet 400 mg PO BEDTIME Qty: 90 2RF magnesium oxide 500 mg capsule 500 mg PO QAM diclofenac sodium 1 % gel 2 g TOPICAL QID PRN (Reason: Pain) Hold Instructions: Resume on 12/01/20. Rx Instructions: apply to neck and head lorazepam 1 mg tablet 1 mg PO TID PRN (Reason: anxiety attacks) Qty: 90 3RF albuterol sulfate [ProAir HFA] 90 mcg/actuation HFA aerosol inhaler 2 puff INHALATION Q4H PRN (Reason: shortness of breath or wheezing) Qty: 18 2RF venlafaxine [Effexor XR] 75 mg capsule,extended release 24hr 75 mg PO QAM Qty: 30 3RF sucralfate 1 gram tablet 1 g PO TID Qty: 90 2RF Hold Instructions: Symtoms improved hold Rx Instructions: 30 minutes before meals ferrous gluconate 324 mg (38 mg iron) tablet 324 mg PO TID Qty: 90 2RF ondansetron HCl 8 mg tablet 8 mg PO Q8H PRN (Reason: nausea and vomiting) Qty: 30 0RF sumatriptan succinate 100 mg tablet See Rx Instructions .ROUTE .COMPLEX Qty: 9 0RF Dose Instruction: TAKE ONE TABLET BY MOUTH AT ONSET of HEADACHE, MAY REPEAT DOSE in TWO hours if needed, max of TWO TABLETS in 24 hours Rx Instructions: TAKE ONE TABLET BY MOUTH AT ONSET of HEADACHE, MAY REPEAT DOSE in TWO hours if needed, max of TWO TABLETS in 24 hours topiramate 100 mg tablet 100 mg PO QAM Qty: 90 0RF cyclobenzaprine 10 mg tablet 10 mg PO BID PRN (Reason: muscle spasm) Qty: 180 0RF promethazine 25 mg tablet 25 mg PO Q6H PRN (Reason: nausea and vomiting) Qty: 30 0RF diclofenac sodium 75 mg tablet,delayed release (DR/EC) 75 mg PO Q12H PRN (Reason: pain) Qty: 20 0RF Protonix 40 mg tablet,delayed release (DR/EC) 40 mg PO QAM Singulair 10 mg tablet 10 mg PO QAM Miralax 17 gram/dose powder 17 g PO DAILY PRN (Reason: Constipation) Discharge Orders: Discharge ED (Routine); Ordered 01/14/23 Ordered By: Josue Stallings Referrals: Marko Wallace, [facility] [Primary Care Provider] - Discharge Diet: Full LIquid Discharge Activity: Increase activity as tolerated Patient Instructions: Constipation (ED), Opioid Safety, Pain Management Activity Restrictions/Additional Instructions: You are seen in the emergency room for abdominal pain your laboratory test did not show any significant abnormalities. CT showed large amounts of retained stool. Would recommend that you on a long-term basis increase your use of MiraLAX to prevent constipation for the short-term to eliminate relieve the immediate constipation start on lactulose 1 dose every 2 hours until desired effect achieved. Coding Level of Care Code ED [employer] for Yash Arias
--- NOTE | 2023-01-14 08:18 | ECG_ITS ---
[facility] Test Date: 2023-01-14 Pat Name: Christine Menard Department: Room: Gender: Female Candy Packer: : 1980 Requested By: Bobby Mayo Order Number: [id number] Martha MD: Cassandra Gonzalez M.D. Measurements Intervals Whiteside Rate: 99 P: 70 ME: 149 QRS: 20 QRSD: 93 T: 50 QT: 278 QTc: 358 Interpretive Statements SINUS RHYTHM POSSIBLE LEFT ATRIAL ENLARGEMENT [-0.1mV P-WAVE IN V1/V2] LOW QRS VOLTAGE IN PRECORDIAL LEADS [QRS DEFLECTION < 1.0 mV IN CHEST LEADS] INCOMPLETE RIGHT BUNDLE BRANCH BLOCK [90+ ms QRS DURATION, TERMINAL R IN V1/V2, 40+ ms S IN I/aVL/V4/V5/V6] Compared to ECG 01/14/2023 06:11:44 No significant changes Electronically Signed On 01-14-2023 19:30:04 CDT by Cassandra Gonzalez M.D. [id number]
[2023-01-14 09:14] LABS: Troponin 5 2HR Delta 0 ABS# (0-10)
== END 2023-01-14 09:05 | disposition home or self-care (01) ==
PROVIDERS: Emergency Medicine; Emergency Provider Family Medicine; PCP Nurse Practitioner
DX: K59.09 Other constipation (principal); N20.0 Calculus of kidney; Z87.891 Personal history of nicotine dependence
CPT/HCPCS: 74022; 74176; 80053; 81003; 83690; 83880; 84484; 84703; 85025; 93005; 96374; 99285; J2270

== ENCOUNTER → 2023-01-17 11:05 | Outpatient (BNVA) | payer OTHER, SELFPAY | PROVIDERS: PCP Nurse Practitioner; Visit Provider Nurse Practitioner | DX: K59.00 Constipation, unspecified (principal) | CPT/HCPCS: 74018 ==

== ENCOUNTER → 2023-01-19 09:26 | Outpatient (BNVA) | payer OTHER, SELFPAY | PROVIDERS: PCP Nurse Practitioner; Visit Provider Nurse Practitioner | DX: K59.09 Other constipation (principal); K56.7 Ileus, unspecified | CPT/HCPCS: 74018 ==

== ENCOUNTER 2023-01-23 13:31 | Inpatient (IN) | payer OTHER, SELFPAY ==
[2023-01-23] VITALS (57 sets, daily range): BP systolic 102–172; BP diastolic 56–81; PULSE 55–123; RESP 12–34; TEMP 36.3–36.4; O2SAT 77–100; BMI 21.9; BMI 21.7
--- NOTE | 2023-01-23 15:03 | XRR_ITS ---
PROCEDURE INFORMATION: Exam: XR Abdomen Exam date and time: 01/23/2023 3:11 PM Age: 43 years old Clinical indication: Abdominal pain; Generalized; Additional info: Abd pain TECHNIQUE: Imaging protocol: Radiologic exam of the abdomen. Views: Frontal supine view of the abdomen. 1 View. COMPARISON: CR XR abdomen 1V* [id number] 01/19/2023 9:25 AM FINDINGS: Gastrointestinal tract: Mild increased gas within the colon, particularly around the transverse colon and flexure region. No abnormal, dilated small bowel is seen. Interval improvement in ileus appearance from previous exam. Intraperitoneal space: Postsurgical clips again seen right upper quadrant and left abdomen. No indication of free air. Bones/joints: Unremarkable. Other findings: No abnormal calcifications. XR/XR KUB portable [id number] IMPRESSION: 1. Nonspecific nonobstructive bowel gas pattern, with mild increased gas within the colon around the transverse colon and flexure region. Interval improvement in ileus appearance from previous exam. 2. Postsurgical changes.
[2023-01-23 15:11] LABS: Basophils # 0.1 10^3/uL (0.0-0.1); Basophils % 0.4 %; Eosinophils # 0.1 10^3/uL (0.0-0.8); Eosinophils % 0.3 %; Hematocrit 40.2 % (37.0-47.0); Hemoglobin 13.5 g/dL (11.5-15.3); Lymphocytes # 1.1 10^3/uL (0.8-4.8); Mean Corpuscular HGB Conc 33.6 g/dL (30.0-36.0); Mean Corpuscular Hemoglobin 28.2 pg (28.0-34.0); Mean Corpuscular Volume 84.1 fl (81-99); Mean Platelet Volume 8.6 fL (7.4-10.4); Monocytes # 0.7 10^3/uL (0.2-0.9); Neutrophils # 16.24 10^3/uL (1.8-7.7); Neutrophils % 88.5 %; Nucleated Red Blood Cells % 0 %; Platelet Count 627 10^3/cmm (130-400); Red Blood Count 4.78 10^6/uL (4.1-5.3); Red Cell Distribution Width 16.6 % (12.1-15.1); White Blood Count 18.4 10^3/uL (4.0-10.0)
[2023-01-23] MEDS: promethazine 25 mg/mL SDV 1 mL IM (15:31)
[2023-01-23] MEDS: sodium chloride 0.9% 1,000 ML 999 ML IV ×2 (15:31→16:30)
--- NOTE | 2023-01-23 15:31 | ED_ITS ---
HPI - Nausea/Vomiting/Diarrhea General: Chief complaint: Nausea/Vomiting/Diarrhea Stated complaint: abd pain Time Seen by Provider: 01/23/23 14:37 Source: patient Mode of arrival: ambulatory History of Present Illness: 43-year-old female presents emergency room with complaints of nausea vomiting and diarrhea for the last several days. She said recurrent abdominal problems. Was seen here a week ago she was constipated. She was discharged home on lactulose and MiraLAX she continued to have issues she was referred to us by my nurse practitioner to the surgeon for an ileus. She has had's some relief of her constipation but still complaining of abdominal discomfort she has had some diarrhea now she denies any hematochezia melena hematemesis or coffee-ground emesis. MD elicited complaint: nausea, vomiting and diarrhea Onset (ago): day(s) Description of vomiting: watery Associated nausea: Yes Associated abdominal pain: Yes Location of pain: Diffuse Pain consistency: constant Severity: moderate Quality: cramping Exacerbating factors: none Relieving factors: none Associated symtoms: Reports nausea; Denies anxiety, bloating, change in vision, chest pain, cough, diaphoresis, decreased urine output, dizziness, dysuria, epistaxis, fatigue, fecal incontinence, fevers/chills, headache(s), anorexia, malaise, myalgias, numbness, palpitations, rash, short of breath, syncope, tenesmus, tinnitus or weakness Review of Systems Const: Denies: fever(s), chills, fatigue, malaise or diaphoresis Eyes: Denies: change in vision ENMT: Denies: tinnitus or epistaxis Card: Denies: chest pain, palpitations or syncope Resp: Denies: dyspnea, productive cough or non-productive cough GI: Reports: abdominal pain, nausea and vomiting; Denies: bloating or fecal incontinence : Denies: dysuria Musc: Denies: neck pain or back pain Skin/Breast: Denies: rash or pruritus Neuro: Denies: headache(s) or dizziness Psych: Denies: anxiety PFSH ED PFSH: Medical History Bereavement Mother Sep 03, 2017. Chronic peptic ulcer Chronic post-traumatic stress disorder Environmental and seasonal allergies Esophagitis Gastritis Gastro-esophageal reflux disease without esophagitis History of PSVT (paroxysmal supraventricular tachycardia) Major depressive disorder, recurrent episode, moderate with anxious distress Palpable mass of lower back Panic disorder without agoraphobia Psychiatric care Surgical History History of cholecystectomy (~2000) History of partial hysterectomy History of pelvic surgery due to adhesion History of right oophorectomy History of umbilical hernia repair Three different times 2004 x2, 2013 Family History Other Diabetes Heart disease Hypertension Social History Smoking and tobacco status: former smoker Second hand smoke exposure: No Smoking risk assessment/counseling performed?: No Alcohol intake: never Desire information about alcohol rehabilitation?: No Counseling given: No Substance/Drug Use: never Desire information about substance/drug rehabilitation?: No Counseling given: No Adopted: No Caregiver/support person: No Lives independently: Yes Household members: spouse and children Housing: House Marital status: Current occupational status: employed Current occupation: [employer] Do you think of yourself as: Straight/Heterosexual Current gender identity: Female Physical Exam 2 Const: GENERAL APPEARANCE: cooperative and comfortable ORIENTATION/CONSCIOUSNESS: Yes awake, Yes oriented to person, Yes oriented to place and Yes oriented to time HENMT: COMMON NORMALS: normocephalic, atraumatic and hearing grossly normal bilaterally HEAD & SCALP: normocephalic and atraumatic Resp: COMMON NORMALS: normal respiratory effort, No retractions, No use of accessory muscles and clear to auscultation bilaterally AUSCULTATION: clear to auscultation bilaterally Cardio: COMMON NORMALS: regular rate, regular rhythm and No murmurs present (Cardio) RATE: regular rate RHYTHM: regular rhythm GI: COMMON NORMALS: Soft to palpation and No hepatosplenomegaly present AUSCULTATION: Yes normoactive bowel sounds PALPATION: Yes Soft to palpation, No Tenderness to palpation present (GI), No Guarding due to palpation present (GI) and Yes No hepatosplenomegaly present Extremity: COMMON NORMALS: normal to inspection, capillary refill normal, no clubbing, cyanosis or edema, no calf tenderness and no pedal edema Neuro: SENSORIUM/ORIENTATION: Yes oriented to person, Yes oriented to place and Yes oriented to time Skin: COMMON NORMALS: no rashes or lesions noted GENERAL SKIN EXAM: no rashes or lesions noted Course Vital Signs: Vital signs: Vital Signs Temperature 97.4 F L 01/23/23 13:42 Pulse Rate 95 01/23/23 16:35 Respiratory Rate 12 01/23/23 16:35 Blood Pressure 114/74 01/23/23 16:35 Pulse Oximetry 99 01/23/23 16:35 Oxygen Delivery Me thod Room Air 01/23/23 15:29 MDM - Nausea/Vomiting/Diarrhea Medical Decision Making GivenCT shows small bowel obstruction. Discussed Dr. Isbell and was Dr. Slade. Will admit Dr. Slade. Additionally she is significantly hypokalemic flu id resuscitation NG placed potassium supplement. Pain and nausea medications. Orders written. Medical Records I reviewed the patient's medical records. Lab Data I reviewed the patient's lab results. 01/23/23 14:59 01/23/23 14:59 Radiology Impressions KUB X-Ray 01/23/23 15:03 IMPRESSION: 1. Nonspecific nonobstructive bowel gas pattern, with mild increased gas within the colon around the transverse colon and flexure region. Interval improvement in ileus appearance from previous exam. 2. Postsurgical changes. Abdomen/Pelvis CT 01/23/23 15:57 IMPRESSION: 1. Mild basilar atelectasis. 2. Previous cholecystectomy with prominence of the hepatic/bile duct post cholecystectomy, as noted with prior exam. 3. Suggestion of prior hysterectomy. 4. Findings suggestive of benign renal cysts. 5. Findings suggestive of partial or incomplete small bowel obstruction, with transitional point mid to lower left abdomen with suggestion of normal caliber of the distal ileum in relation to the remainder of the small bowel, with presence of fluid and air in the colon as well as partial oral contrast in the proximal colon. Mild small-bowel wall thickening also noted. Correlate clinically, as well. COMMENTS: Consistent with the [employer]'s Incidental Findings Committee white paper (J Am Grace Radiol 2018): Any incidental renal lesion less than 1 cm or classified as too small to characterize, or any incidental cystic renal lesion characterized as simple-appearing, is likely benign. No follow-up imaging is recommended for these lesions per consensus recommendations based on imaging criteria. ADDENDUM: 01/23/23 [id number] Report was confirmed by JOSUE Perez at 01/23/2023 5:11 PM CDT and has no questions. Laboratory Results WBC 18.4 10^3/uL (4.0-10.0) H 01/23/23 14:59 RBC 4.78 10^6/uL (4.1-5.3) 01/23/23 14:59 Hgb 13.5 g/dL (11.5-15.3) 01/23/23 14:59 Hct 40.2 % (37.0-47.0) 01/23/23 14:59 MCV 84.1 fl (81-99) 01/23/23 14:59 MCH 28.2 pg (28.0-34.0) 01/23/23 14:59 MCHC 33.6 g/dL (30.0-36.0) 01/23/23 14:59 RDW 16.6 % (12.1-15.1) H 01/23/23 14:59 Plt Count 627 10^3/cmm (130-400) H 01/23/23 14:59 MPV 8.6 fL (7.4-10.4) 01/23/23 14:59 Neut % (Auto) 88.5 % 01/23/23 14:59 Lymph % (Auto) 6.0 % 01/23/23 14:59 Moffat % (Auto) 4.0 % 01/23/23 14:59 Eos % (Auto) 0.3 % 01/23/23 14:59 Baso % (Auto) 0.4 % 01/23/23 14:59 Neut # (Auto) 16.24 10^3/uL (1.8-7.7) H 01/23/23 14:59 Lymph # (Auto) 1.1 10^3/uL (0.8-4.8) 01/23/23 14:59 Moffat # (Auto) 0.7 10^3/uL (0.2-0.9) 01/23/23 14:59 Eos # (Auto) 0.1 10^3/uL (0.0-0.8) 01/23/23 14:59 Baso # (Auto) 0.1 10^3/uL (0.0-0.1) 01/23/23 14:59 Nucleated RBC % (auto) 0 % 01/23/23 14:59 Nucleated RBCs # 0.0 /100WBC 01/23/23 14:59 Sodium 133 mmol/L (136-145) L 01/23/23 14:59 Potassium 2.5 mmol/L (3.5-5.1) L* 01/23/23 14:59 Chloride 96 mmol/L (98-107) L 01/23/23 14:59 Carbon Dioxide 18 mmol/L (22-29) L 01/23/23 14:59 Anion Gap 21.5 (5-19) H 01/23/23 14:59 BUN 12 mg/dL (6-20) 01/23/23 14:59 Creatinine 0.9 mg/dL (0.5-0.9) 01/23/23 14:59 GFR Calculation 68.0 mL/min (90-130) L 01/23/23 14:59 Glucose 139 mg/dL (65-115) H 01/23/23 14:59 Calculated Osmolality 278 mOsm/kg (285-295) L 01/23/23 14:59 Calcium 8.9 mg/dL (8.5-10.5) 01/23/23 14:59 Total Bilirubin 0.2 mg/dL (0.15-1.2) 01/23/23 14:59 AST 16 U/L (0-32) 01/23/23 14:59 ALT 16 U/L (0-33) 01/23/23 14:59 Alkaline Phosphatase 149 U/L (35-105) H 01/23/23 14:59 Total Protein 7.1 g/dL (6.6-8.7) 01/23/23 14:59 Albumin 3.8 g/dL (3.5-5.2) 01/23/23 14:59 Globulin 3.3 g/dL (1.3-4.6) 01/23/23 14:59 Lipase 55 U/L (13-60) 01/23/23 14:59 Discharge Plan Discharge Patient Disposition: Admitted As Inpatient Clinical Impression: SBO (small bowel obstruction), Hypokalemia Condition: Stable Prescriptions: No Action quetiapine [Seroquel] 400 mg tablet 400 mg PO BEDTIME Qty: 90 2RF diclofenac sodium 1 % gel 2 g TOPICAL QID PRN (Reason: Pain) Hold Instructions: Resume on 12/01/20. Rx Instructions: apply to neck and head lorazepam 1 mg tablet 1 mg PO TID PRN (Reason: anxiety attacks) Qty: 90 3RF albuterol sulfate [ProAir HFA] 90 mcg/actuation HFA aerosol inhaler 2 puff INHALATION Q4H PRN (Reason: shortness of breath or wheezing) Qty: 18 2RF magnesium oxide 500 mg capsule 500 mg PO BID Qty: 60 0RF Rx Instructions: OTC venlafaxine [Effexor XR] 75 mg capsule,extended release 24hr 75 mg PO QAM Qty: 30 3RF topiramate 100 mg tablet 100 mg PO QAM Qty: 90 0RF cyclobenzaprine 10 mg tablet 10 mg PO BID PRN (Reason: muscle spasm) Qty: 180 0RF promethazine 25 mg tablet 25 mg PO Q6H PRN (Reason: nausea and vomiting) Qty: 30 0RF sumatriptan succinate 100 mg tablet See Rx Instructions .ROUTE .COMPLEX Qty: 9 0RF Dose Instruction: TAKE ONE TABLET BY MOUTH AT ONSET of HEADACHE, MAY REPEAT DOSE in TWO hours if needed, max of TWO TABLETS in 24 hours Rx Instructions: TAKE ONE TABLET BY MOUTH AT ONSET of HEADACHE, MAY REPEAT DOSE in TWO hours if needed, max of TWO TABLETS in 24 hours lactulose 10 gram/15 mL solution 30 ml PO Q2H PRN (Reason: Constipation) pantoprazole [Protonix] 40 mg tablet,delayed release (DR/EC) 40 mg PO QAM montelukast [Singulair] 10 mg tablet 10 mg PO QAM polyethylene glycol 3350 [Miralax] 17 gram/dose powder 17 g PO DAILY PRN (Reason: Constipation) Referrals: Marko Wallace, HUMAN RELATIONS MANAGER-C [Primary Care Provider] - Patient Instructions: Opioid Safety, Pain Management Coding Level of Care Code ED Rn Case Management for Yash Arias
[2023-01-23 15:37] LABS: Alanine Aminotransferase 16 U/L (0-33); Albumin Level 3.8 g/dL (3.5-5.2); Alkaline Phosphatase 149 U/L (35-105); Anion Gap 21.5 (5-19); Aspartate Amino Transferase 16 U/L (0-32); Blood Urea Nitrogen 12 mg/dL (6-20); Calcium 8.9 mg/dL (8.5-10.5); Carbon Dioxide 18 mmol/L (22-29); Chloride 96 mmol/L (98-107); Creatinine Clr Calc Pharmacy 59.9669; Globulin 3.3 g/dL (1.3-4.6); Glucose 139 mg/dL (65-115); Lipase 55 U/L (13-60); Osmolality Calculated 278 mOsm/kg (285-295); Sodium 133 mmol/L (136-145); Total Bilirubin 0.2 mg/dL (0.15-1.2); Total Protein 7.1 g/dL (6.6-8.7)
[2023-01-23 15:48] LABS: Potassium 2.5 mmol/L (3.5-5.1)
--- NOTE | 2023-01-23 15:51 | PC.NURSE ---
Lab reported patients potassium is 2.5, Dr. Stallings notified
--- NOTE | 2023-01-23 15:57 | CTR_ITS ---
PROCEDURE INFORMATION: Exam: CT Abdomen And Pelvis With Contrast Exam date and time: 01/23/2023 4:04 PM Age: 43 years old Clinical indication: Abdominal pain; Generalized; Prior surgery; Surgery date: 6+ months; Surgery type: Hyst, gb, hernia; Additional info: Abd pain TECHNIQUE: Imaging protocol: Computed tomography of the abdomen and pelvis with contrast. Radiation optimization: All CT scans at this facility use at least one of these dose optimization techniques: automated exposure control; mA and/or kV adjustment per patient size (includes targeted exams where dose is matched to clinical indication); or iterative reconstruction. Contrast material: OMNI 350; Contrast volume: 100 ml; Contrast route: INTRAVENOUS (IV); REPORTING DATA: Count of CT and Cardiac NM exams in prior 12 months: This patient has received 2 known CTs and 0 known cardiac nuclear medicine studies in the 12 months prior to the current study. COMPARISON: CT abdomen pelvis wo con [id number] 01/14/2023 8:00 AM RADIATION DOSE METRICS: Total DLP (mGy-cm): 318.54 FINDINGS: Lungs: Mild basilar atelectasis. Overall interval improvement in the lung bases from previous exam, otherwise. Liver: No focal abnormality. Gallbladder and bile ducts: Postsurgical clips in the gallbladder fossa, previous cholecystectomy. Prominence of the common hepatic/bile duct post cholecystectomy, as noted with prior exam. This can be correlated with serum bilirubin and liver functions, otherwise. Pancreas: Normal. No ductal dilation. Spleen: Normal. No splenomegaly. Adrenal glands: Normal. No mass. Kidneys and ureters: Several rounded hypodense foci with fluid density and subcentimeter size noted within the cortex of the kidneys suggesting benign renal cysts. Kidneys are otherwise unremarkable. Stomach and bowel: Fluid is seen within the stomach and diffuse mildly dilated small bowel, with suggestion transition in caliber in the mid to lower left abdomen at the mid to distal ileal level without fluid and with more normal caliber in the distal ileum and terminal ileum. Fluid is seen within the colon, along with presence of some partial oral contrast within the right colon. Mild bowel wall thickening is seen, particularly small bowel. Findings suggest incomplete or partial small bowel obstruction given the transition appearance of the distal ileum in relation to the remainder of the small bowel and given the appearance of the colon. Appendix: No evidence of appendicitis. Intraperitoneal space: Unremarkable. No free air. No significant fluid collection. Vasculature: Unremarkable. No abdominal aortic aneurysm. Lymph nodes: Unremarkable. No enlarged lymph nodes. Urinary bladder: Urinary bladder is not well distended and without focal abnormality. Reproductive: Suggestion of previous hysterectomy. Bones/joints: Mild degenerative disc disease lumbosacral junction. Soft tissues: Unremarkable. CT/CT abdomen pelvis w con* [id number] IMPRESSION: 1. Mild basilar atelectasis. 2. Previous cholecystectomy with prominence of the hepatic/bile duct post cholecystectomy, as noted with prior exam. 3. Suggestion of prior hysterectomy. 4. Findings suggestive of benign renal cysts. 5. Findings suggestive of partial or incomplete small bowel obstruction, with transitional point mid to lower left abdomen with suggestion of normal caliber of the distal ileum in relation to the remainder of the small bowel, with presence of fluid and air in the colon as well as partial oral contrast in the proximal colon. Mild small-bowel wall thickening also noted. Correlate clinically, as well. COMMENTS: Consistent with the [employer]'s Incidental Findings Committee white paper (J Am Grace Radiol 2018): Any incidental renal lesion less than 1 cm or classified as too small to characterize, or any incidental cystic renal lesion characterized as simple-appearing, is likely benign. No follow-up imaging is recommended for these lesions per consensus recommendations based on imaging criteria.
[2023-01-23] MEDS: iohexol 350 mg/mL 500 mL Btl (per mL) IV (16:06)
[2023-01-23] MEDS: potassium chloride premix 100 ML 25 MEQ IV (16:31)
--- NOTE | 2023-01-23 17:27 | P.HP_ITS ---
Providers/Chief Complaint Primary Care Provider: Marko Wallace, UNIQUE-C Chief Complaint: abd pain History of Present Illness Christine Menard is a 43 year old female who has been constipated for last 3 to 4 months she has been seen in the ER when she was given lactulose, patient presented to the hospital for recurrent nausea vomiting, patient stating that her EGD and colonoscopy was unremarkable, no malignancy was found, she has not eaten well since January 12, she has been on liquid diet, today because of recurrent vomiting she decided to come to the hospital. In the ER she has been diagnosed with bowel obstruction, NG tube has been requested Dr. Isbell consulted. Hospitalist team will admit. 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, no history of GI cancer in the family Patient has had multiple surgeries in the past, , hysterectomy, multiple surgeries for umbilical hernia, then she developed complications and required 3 surgeries for hernia, Review of Systems Const: Denies: fever(s) Eyes: Denies: change in vision ENMT: Denies: throat pain Card: Denies: chest pain Resp: Denies: dyspnea GI: Reports: nausea and vomiting : Denies: flank pain Musc: Denies: neck pain Skin/Breast: Denies: rash Neuro: Denies: headache(s) Psych: Reports: anxiety Endo: Denies: polyuria Delbert/Lymph: Denies: easy bruising Medications/Allergies Home Medications Medication Instructions Recorded Confirmed Last Taken Type quetiapine 400 mg tablet (Seroquel) 400 mg PO BEDTIME #90 tabs 05/25/22 01/23/23 01/22/23 Rx venlafaxine 75 mg capsule,extended 75 mg PO QAM #30 caps 06/13/22 01/23/23 Rx release 24 hr (Effexor XR) diclofenac sodium 1 % topical gel 2 g topical QID PRN Pain 06/28/22 01/23/23 Unknown History lorazepam 1 mg tablet 1 mg PO TID PRN anxiety attacks 07/19/22 01/23/23 Unknown Rx #90 tabs albuterol sulfate 90 mcg/actuation 2 puff inhalation Q4H PRN 08/18/22 01/23/23 Unknown Rx aerosol inhaler (ProAir HFA) shortness of breath or wheezing #18 grams montelukast 10 mg tablet 10 mg PO QAM 12/06/22 01/23/23 01/23/23 History (Singulair) pantoprazole 40 mg tablet,delayed 40 mg PO QAM 12/06/22 01/23/23 01/23/23 History release (Protonix) polyethylene glycol 3350 17 17 g PO DAILY PRN Constipation 12/06/22 01/23/23 Unknown History gram/dose oral powder (Miralax) cyclobenzaprine 10 mg tablet 10 mg PO BID PRN muscle spasm #180 12/14/22 01/23/23 Unknown Rx tabs topiramate 100 mg tablet 100 mg PO QAM #90 tabs 12/14/22 01/23/23 01/23/23 Rx promethazine 25 mg tablet 25 mg PO Q6H PRN nausea and 12/30/22 01/23/23 Unknown Rx vomiting #30 tabs sumatriptan succinate 100 mg tablet See Rx Instructions .Route 01/19/23 01/23/23 Unknown Rx .COMPLEX #9 tabs magnesium oxide 500 mg capsule 500 mg PO BID #60 caps 01/20/23 01/23/23 01/23/23 Rx lactulose 10 gram/15 mL oral 30 ml PO Q2H PRN Constipation 01/23/23 01/23/23 Unknown History solution Allergies Allergy/AdvReac Type Severity Reaction Status Date / Time Influenza Virus Vaccines Allergy Unknown Unknown Verified 01/23/23 13:47 ketorolac [From Toradol] Allergy Unknown Unknown Verified 01/23/23 13:47 PFSH Acute PFSH: Medical History (Updated 01/23/23 @ 17:30 by Mary Ann Slade MD) Bereavement Mother Sep 03, 2017. Chronic peptic ulcer Chronic post-traumatic stress disorder Environmental and seasonal allergies Esophagitis Gastritis Gastro-esophageal reflux disease without esophagitis History of PSVT (paroxysmal supraventricular tachycardia) Major depressive disorder, recurrent episode, moderate with anxious distress [place] Palpable mass of lower back Panic disorder without agoraphobia Pelvic pain Psychiatric care Surgical History History of cholecystectomy (~1999) History of partial hysterectomy History of pelvic surgery due to adhesion History of right oophorectomy History of umbilical hernia repair Three different times 2004 x2, 2013 Family History Other Diabetes Heart disease Hypertension Social History Smoking and tobacco status: former smoker Second hand smoke exposure: No Smoking risk assessment/counseling performed?: No Alcohol intake: never Desire information about alcohol rehabilitation?: No Counseling given: No Substance/Drug Use: never Desire information about substance/drug rehabilitation?: No Counseling given: No Adopted: No Caregiver/support person: No Lives independently: Yes Household members: spouse and children Housing: House Marital status: Current occupational status: employed Current occupation: [employer] Do you think of yourself as: Straight/Heterosexual Current gender identity: Female Vitals/I&O/Wt Last Vital Signs Temp 97.4 F L 01/23/23 13:42 Pulse 95 01/23/23 16:35 Resp 12 01/23/23 16:35 BP 114/74 01/23/23 16:35 Pulse Ox 99 01/23/23 16:35 O2 Del Method Room Air 01/23/23 15:29 01/23/23 01/23/23 01/23/23 06:59 14:59 22:59 Intake Total 982.35 / 982.35 Balance 982.35 / 982.35 Weight last 48 hrs Weight 50.802 kg Physical Exam Narrative: Awake and alert Complaining abdominal pain Abdomen on exam is soft No active emesis Currently room air Hemodynamically stable Nonfocal neuro exam S1, S2 No audible stridor or wheezing Regular room air Appears stated age Appears dehydrated malnourished Data 01/23/23 14:59 01/23/23 14:59 A&P Assessment and plan (1) SBO (small bowel obstruction): (2) Hypokalemia: (3) Iron deficiency: (4) Multilevel cervical spondylosis without myelopathy: (5) Numbness and tingling: (6) Iron deficiency anemia: (7) Weight loss: (8) Chronic peptic ulcer: (9) Gastro-esophageal reflux disease without esophagitis: (10) Chronic post-traumatic stress disorder: Plan Small bowel obstruction Multiple abdominal surgeries in the past N.p.o. for now NG to low intermittent suction has been requested General surgery notified and consulted by the ER physician I will start her on PPN by trinyorrow For now I will start her on dextrose normal saline Electrolyte imbalance: Hypokalemia repleted Patient has not eaten since January 12 No previous history of malignancy No family history of GI cancer Full code DVT prophylaxis Lovenox Patient is also endorsing GERD, EGD unremarkable Attestations Medical Necessity Statement*: More than 2 midnights anticipated management of bowel obstruction Coding Level of Care Code 93310 Moderate MDM includes number and complexity of problems actively addressed during encounter, amount and/or complexity of data reviewed/ordered and described risk of complication, morbidity or mortality of management as document ed Diagnoses SBO (small bowel obstruction) K56.609 Hypokalemia E87.6 Iron deficiency E61.1 Multilevel cervical spondylosis without myelopathy M47.812 Numbness and tingling R20.0; R20.2 Iron deficiency anemia D50.9 Weight loss R63.4 Chronic peptic ulcer K27.7 Gastro-esophageal reflux disease without esophagitis K21.9 Chronic post-traumatic stress disorder F43.12
[2023-01-23 17:38] LABS: Lactic Sepsis W/Reflex 1.1 mmol/L (0.5-2.2)
[2023-01-23] MEDS: ondansetron 2 mg/ML SDV 2 mL 4 MG IVP ×2 (18:20→21:18)
[2023-01-23] MEDS: morphine 4 mg/mL SDV 1 mL IVP ×2 (18:20→23:19)
[2023-01-23] MEDS: enoxaparin 40 mg/0.4 mL Syringe SUBCUT (21:19)
[2023-01-23] MEDS: dextrose 5%-sod chloride 0.9% 1,000 ML 75 ML IV (21:19)
[2023-01-24] VITALS (13 sets, daily range): BP systolic 88–115; BP diastolic 58–81; PULSE 74–87; RESP 14–22; TEMP 26–37.2; O2SAT 94–99
[2023-01-24] MEDS: ondansetron 2 mg/ML SDV 2 mL 4 MG IVP ×4 (02:47→23:17)
[2023-01-24 04:56] LABS: Basophils % 0.2 %; Eosinophils # 0.1 10^3/uL (0.0-0.8); Eosinophils % 0.6 %; Hematocrit 30.6 % (37.0-47.0); Hemoglobin 9.7 g/dL (11.5-15.3); Lymphocytes # 3.1 10^3/uL (0.8-4.8); Mean Corpuscular HGB Conc 31.7 g/dL (30.0-36.0); Mean Corpuscular Hemoglobin 28.4 pg (28.0-34.0); Mean Corpuscular Volume 89.7 fl (81-99); Mean Platelet Volume 8.7 fL (7.4-10.4); Monocytes # 0.5 10^3/uL (0.2-0.9); Monocytes % 5.2 %; Neutrophils # 5.95 10^3/uL (1.8-7.7); Neutrophils % 61.5 %; Nucleated Red Blood Cells % 0 %; Platelet Count 484 10^3/cmm (130-400); Red Blood Count 3.41 10^6/uL (4.1-5.3); Red Cell Distribution Width 17.3 % (12.1-15.1); White Blood Count 9.7 10^3/uL (4.0-10.0)
[2023-01-24 05:17] LABS: Blood Urea Nitrogen 11 mg/dL (6-20); Calcium 7.1 mg/dL (8.5-10.5); Carbon Dioxide 22 mmol/L (22-29); Chloride 110 mmol/L (98-107); Glomerular Filtration Rate 173.4 mL/min (90-130); Glucose 103 mg/dL (65-115); Magnesium 2.2 mg/dL (1.7-2.3); Osmolality Calculated 294 mOsm/kg (285-295); Sodium 142 mmol/L (136-145)
--- NOTE | 2023-01-24 07:18 | PM.PN ---
Subjective Subjective: No significant overnight events Anxious She is emotionally labile Patient is stating that her NG tube is causing sore throat that is very bothersome for her Dr. Isbell recommended continuation of NG tube to low intermittent suction with continuation of IV fluids at 150 mill per hour No significant output from the NG tube I only see about 30 mL in the container Vitals/I&O/Wt Last Vital Signs Temp 97.6 F 01/24/23 04:00 Pulse 79 01/24/23 05:04 Resp 17 01/24/23 04:00 BP 108/73 01/24/23 04:00 Pulse Ox 98 01/24/23 04:00 O2 Del Method Room Air 01/23/23 21:45 01/23/23 01/24/23 01/24/23 22:59 06:59 14:59 Intake Total 2081.35 / 2081.35 Balance 2081.35 / 2081. Weight last 48 hrs Weight 50.349 kg Weight 50.802 kg Physical Exam Narrative: Young female No active distress Abdomen soft on palpation Bowel sounds present Signs of dehydration present Malnourished No active chest pain or shortness of breath S1, S2 Currently on room air Data 01/24/23 04:28 01/24/23 04:28 A&P Assessment and plan (1) SBO (small bowel obstruction): (2) Iron deficiency: (3) Hypokalemia: Plan She will small bowel obstruction Conservative management Continue IV fluids If patient is not able to eat we will start PPN today Poke with Dr. Isbell who commended conservative management, IV fluid has been increased to 150 mill per hour Hypokalemia: Potassium repleted Follow-up on mag level Dehydration Continue IV fluid hydration Sore throat can use Magic mouth wash, Chloraseptic spray Full code N.p.o. DVT prophylaxis on board Attestations Medical Necessity Statement*: Continue medical management Diagnoses SBO (small bowel obstruction) K56.609 Iron deficiency E61.1 Hypokalemia E87.6
--- NOTE | 2023-01-24 08:16 | P.CONIM_ITS ---
Providers/Reason For Consult Consulting Physician/Specialty*: Dr. 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 She has a somewhat complicated past surgical history which includes umbilical hernia repair and mesh infection with resulting mesh resection and multiple recurrent hernia repairs. She reports lower abdominal pain. Pain does not radiate. Palpation makes pain worse. Nothing makes pain better. She reports that she had diarrhea yesterday but has not passed gas in months. She is crying. Denies any hematemesis. CT abdomen pelvis shows a partial small bowel obstruction with contrast in the colon Review of Systems General: Reports: 10 or more systems reviewed and unremarkable except in HPI and below Medications/Allergies Home Medications Medication Instructions Recorded Confirmed Last Taken Type quetiapine 400 mg tablet (Seroquel) 400 mg PO BEDTIME #90 tabs 05/25/22 01/23/23 01/22/23 Rx venlafaxine 75 mg capsule,extended 75 mg PO QAM #30 caps 06/13/22 01/23/23 01/23/23 Rx release 24 hr (Effexor XR) diclofenac sodium 1 % topical gel 2 g topical QID PRN Pain 06/28/22 01/23/23 Unknown History lorazepam 1 mg tablet 1 mg PO TID PRN anxiety attacks 07/19/22 01/23/23 Unknown Rx #90 tabs albuterol sulfate 90 mcg/actuation 2 puff inhalation Q4H PRN 08/18/22 01/23/23 Unknown Rx aerosol inhaler (ProAir HFA) shortness of breath or wheezing #18 grams montelukast 10 mg tablet 10 mg PO QAM 12/06/22 01/23/23 01/23/23 History (Singulair) pantoprazole 40 mg tablet,delayed 40 mg PO QAM 12/06/22 01/23/23 01/23/23 History release (Protonix) polyethylene glycol 3350 17 17 g PO DAILY PRN Constipation 12/06/22 01/23/23 Unknown History gram/dose oral powder (Miralax) cyclobenzaprine 10 mg tablet 10 mg PO BID PRN muscle spasm #180 12/14/22 01/23/23 Unknown Rx tabs topiramate 100 mg tablet 100 mg PO QAM #90 tabs 12/14/22 01/23/23 01/23/23 Rx promethazine 25 mg tablet 25 mg PO Q6H PRN nausea and 12/30/22 01/23/23 Unknown Rx vomiting #30 tabs sumatriptan succinate 100 mg tablet See Rx Instructions .Route 01/19/23 01/23/23 Unknown Rx .COMPLEX #9 tabs magnesium oxide 500 mg capsule 500 mg PO BID #60 caps 01/20/23 01/23/23 01/23/23 Rx lactulose 10 gram/15 mL oral 30 ml PO Q2H PRN Constipation 01/23/23 01/23/23 Unknown History solution Allergies Allergy/AdvReac Type Severity Reaction Status Date / Time Influenza Virus Vaccines Allergy Unknown Unknown Verified 01/23/23 13:47 ketorolac [From Toradol] Allergy Unknown Unknown Verified 01/23/23 13:47 Current Medications Generic Name Dose Route Start Last Admin Trade Name Freq PRN Reason Stop Dose Admin Acetaminophen 500 mg 01/23/23 20:33 01/24/23 14:34 Acetaminophen 500 Mg Tablet PO 500 mg Q4H PRN Administration fever Enoxaparin Sodium 40 mg 01/23/23 20:33 01/23/23 21:19 Enoxaparin 40 Mg/0.4 Ml Syringe SUBCUT 40 mg Q24H SHAHLA Administration Dextrose/Sodium Chloride 1,000 mls @ 150 mls/hr 01/23/23 20:33 01/24/23 17:16 Dextrose 5%-Sod Chloride 0.9% IV 150 mls/hr .Q6H40M SHAHLA Administration Multivitamins 10 ml/ Amino 1,010 mls @ 0 mls/hr 01/24/23 12:00 01/24/23 11:03 Acids/Electrolytes IV 12 mls/hr .Q0M SHAHLA Administration Protocol As Directed Fat Emulsion Intravenous 125 mls @ 10.417 mls/hr 01/24/23 12:00 01/24/23 11:02 Intralipid 20% IV 10.42 mls/hr Q24H SHAHLA Administration Morphine Sulfate 4 mg 01/23/23 20:33 01/23/23 23:19 Morphine 4 Mg/Ml Sdv 1 Ml IVP 4 mg Q4H PRN Administration SEVERE PAIN Morphine Sulfate 15 mg 01/23/23 20:33 01/24/23 08:23 Morphine Ir 15 Mg Tablet PO 15 mg Q6H PRN Administration pAIN Ondansetron HCl 4 mg 01/23/23 20:33 01/24/23 17:19 Ondansetron 2 Mg/Ml Sdv 2 Ml IVP 4 mg Q6H PRN Administration NAUSEA AND VOMITING Pantoprazole Sodium 40 mg 01/24/23 09:00 01/24/23 09:00 Pantoprazole 40 Mg Sdv IVP 40 mg DAILY SHAHLA Administration Phenol 3 spray 01/24/23 08:29 01/24/23 18:12 Phenol Oral [place] 177 Ml MUCOUS MEM 3 spray Q2H PRN Administration SORE THROAT Senna/Docusate Sodium 1 tab 01/24/23 09:00 01/24/23 09:00 Sennosides-Docusate Tablet PO 1 tab DAILY SHAHLA Administration PFSH Acute PFSH: Medical History Bereavement Mother Sep 03, 2017. Chronic peptic ulcer Chronic post-traumatic stress disorder Environmental and seasonal allergies Esophagitis Gastritis Gastro-esophageal reflux disease without esophagitis History of PSVT (paroxysmal supraventricular tachycardia) Major depressive disorder, recurrent episode, moderate with anxious distress Mittelsrodrickz Palpable mass of lower back Panic disorder without agoraphobia Pelvic pain Psychiatric care Surgical History History of cholecystectomy (~2000) History of partial hysterectomy History of pelvic surgery due to adhesion History of right oophorectomy History of umbilical hernia repair Three different times 2004 x2, 2012 Family History Other Diabetes Heart disease Hypertension Social History Smoking and tobacco status: former smoker Second hand smoke exposure: No Smoking risk assessment/counseling performed?: No Alcohol intake: never Desire information about alcohol rehabilitation?: No Counseling given: No Substance/Drug Use: never Desire information about substance/drug rehabilitation?: No Counseling given: No Adopted: No Caregiver/support person: No Lives independently: Yes Household members: spouse and children Housing: House Marital status: Current occupational status: employed Current occupation: [employer] Do you think of yourself as: Straight/Heterosexual Current gender identity: Female Vitals/I&O/Wt Last Vital Signs Temp 78.8 F L 01/24/23 16:00 Pulse 79 01/24/23 16:00 Resp 14 01/24/23 16:00 BP 108/76 01/24/23 16:00 Pulse Ox 99 01/24/23 16:00 O2 Del Method Room Air 01/24/23 11:38 01/24/23 01/24/23 01/24/23 06:59 14:59 22:59 Intake Total 2136.25 / 2136.25 468.75 / 2605.00 Balance 2136.25 / 2136.25 468.75 / 2605.00 Weight last 48 hrs Weight 111 lb Weight 112 lb Physical Exam Narrative: General : Patient is well developed , no acute distress, oriented x3 Head : Normal cephalic, a-traumatic. Ears : Pinnae and external canal are normal. Hearing is normal. Eyes : PERRLA, Sclera and injection are normal. No conjunctival discharge. Nose : Mucous membranes are without erythema. Throat : buccal mucosa is normal, gums are without significant recession or hypertrophy. Lungs : Equal chest rise bilaterally, no use of accessory muscles, trachea is midline. Cor : Rate and rhythm are normal. Abdomen : Soft, Mild distension with mild suprapubic tenderness, no g/r/m Extremities : No edema, no cyanosis or clubbing, dorsalis pedis pulses are present bilaterally, non-tender to palpation of calves. Upper extremities are normal bilaterally. Back : non-tender to palpation, no CVA tenderness. Neuro : CN II - XII intact, Upper and lower extremities have equal and full strength Data 01/24/23 04:28 01/24/23 04:28 A&P Assessment and plan (1) Partial small bowel obstruction: Plan IVF NGT to LIWS NPO Daily labs Aggressive electrolyte replacement Conservative management for now. If she does not begin passing significant flatus or have a bowel movement in the next few days, we will have to consider Diagnostic laparoscopy vs. Exploratory Laparotomy Medical management per hospitalist Coding Level of Care Code Acute Code for Chg Fwd Diagnoses Partial small bowel obstruction K56.600
[2023-01-24] MEDS: morphine IR 15 mg Tablet PO (08:23)
[2023-01-24] MEDS: LORazepam 2 mg Tablet PO (08:54)
[2023-01-24] MEDS: phenol oral Spray 177 mL 3 SPRAY MUCOUS MEM ×5 (08:58→21:34)
[2023-01-24] MEDS: pantoprazole 40 mg SDV IVP (09:00)
[2023-01-24] MEDS: sennosides-docusate Tablet 1 TAB PO (09:00)
[2023-01-24] MEDS: dextrose 5%-sod chloride 0.9% 1,000 ML 150 ML IV ×3 (09:39→23:51)
--- NOTE | 2023-01-24 09:55 | PC.CHAP ---
Pastoral Care Encounter/Spiritual Assessment Type of Contact [] Declined destination imagination coordinator visit [] Patient/Family/Request visit [] Outpatient visit [] Follow-up visit [] Physician referral [] Code/Alert [x] Routine visit [] Staff referral [] Actively dying [] Patient sleeping [] Family support [] [] Out of room [] Palliative care [] [] Receiving care in room [] Pre-surgical visit [] Trauma [] Long length of stay [] ICU visit [] Other: Relational/Emotional Strength [x] Patient feels connected with others/family/visitors/staff [] Distress [] Loneliness/isolation [] Abandonment Spirituality of Patient [] Person of Leandra [] Attends Holiness of their Leandra [x] Believes in Prayer [] Reads Bible or Baptist materials [] There are Spiritual issues to be addressed Broadcast Journalist Interventions [x] Prayer [] Active listening [x] Non-anxious presence [] Spiritual/emotional support [] Crisis/trauma care [] Spiritual counseling [] Bereavement support [] Provided bereavement packet [] Provided Bible/devotional materials [] Provided toy/stuffed animal, coloring book to patient or family member [] Provided Communion [] Anointing/[place] [] Salvation [x] Completed spiritual assessment [] Other: Impact on Illness or Injury [] Angry [] Fearful [] Anxious [] Often cries [] Exhaustion [] Unable to work [] Unable to attend islam [] Unable to walk/stand [] Unable to read [] Unable to drive [] Unable to eat/drink [] Unable to sleep [] Unable to be with family [] Patient intubated [] Other: Summary Time spent with patient 5 min
--- NOTE | 2023-01-24 09:57 | PC.NUTR ---
PPN consult received. Recommend beginning PPN @ 12 mls/hr and increasing 10 mls Q8H until goal rate of 42 mls/hr is reached. Also recommend MV 10 mls/day, standard electrolytes and fat emulsion 25 grams/[address] Details in [address] asssessment.
[2023-01-24] MEDS: lidocaine 1% 5 ML in potassium chloride premix 100 ML 25 ML IV (10:34)
[2023-01-24] MEDS: sodium chloride 0.9% 500 ML IV (13:19)
[2023-01-24] MEDS: acetaminophen 500 mg Tablet PO (14:34)
[2023-01-24] MEDS: enoxaparin 40 mg/0.4 mL Syringe SUBCUT (20:45)
[2023-01-24] MEDS: morphine 4 mg/mL SDV 1 mL IVP (21:27)
--- NOTE | 2023-01-24 22:36 | XRR_ITS ---
PROCEDURE INFORMATION: Exam: XR Chest Exam date and time: 01/24/2023 9:48 PM Age: 43 years old Clinical indication: Device placement; Picc; Additional info: New picc line placement. TECHNIQUE: Imaging protocol: Radiologic exam of the chest. Views: 1 view. COMPARISON: CR XR chest 1V portable [id number] 12/15/2022 4:03 PM FINDINGS: Tubes, catheters and devices: Right-sided PICC line with tip at the atrial caval junction. Lungs: Bibasilar left greater than right atelectasis versus infiltrate. Pleural spaces: Unremarkable. No pleural effusion. No pneumothorax. Heart/Mediastinum: Unremarkable. No cardiomegaly. Bones/joints: Unremarkable. XR/XR chest 1V portable [id number] IMPRESSION: 1. Bibasilar left greater than right atelectasis versus infiltrate. 2. Right-sided PICC line with tip at the atrial caval junction.
[2023-01-25] VITALS (14 sets, daily range): BP systolic 104–155; BP diastolic 68–78; PULSE 65–100; RESP 16–20; TEMP 36.3–37.4; O2SAT 97–100
--- NOTE | 2023-01-25 00:06 | PC.NURSE ---
Consulted by House Charge for placement of PICC ordered by Dr. Brianna Johnson for TPN therapy. Upon arrival explained procedure and answered questions regarding procedure including risks and benefits and alternatives. Pt signed consent. Assessed RUE and noted the R basilic vein is 4 mm in diameter and free of evidence of thrombus or stenosis. Using US guidance, MST, and sterile technique the R basilic was accessed x 1 stick. Device fed easily. Device ports aspirate and flush easily. Device secured and dressed. Pt tolerated well. EBL 5ml. Report to pt's primary nurse. Chest x-ray ordered. Appears to be at [facility], and confirmed by radiologist.
[2023-01-25] MEDS: morphine 4 mg/mL SDV 1 mL IVP (03:26)
[2023-01-25 03:54] LABS: Blood Urea Nitrogen 5 mg/dL (6-20); Calcium 7.3 mg/dL (8.5-10.5); Carbon Dioxide 20 mmol/L (22-29); Chloride 116 mmol/L (98-107); Glomerular Filtration Rate 385.9 mL/min (90-130); Glucose 119 mg/dL (65-115); Osmolality Calculated 294 mOsm/kg (285-295); Sodium 143 mmol/L (136-145)
[2023-01-25 03:55] LABS: Anion Gap 10.3 (5-19); Potassium 3.3 mmol/L (3.5-5.1)
[2023-01-25] MEDS: dextrose 5%-sod chloride 0.9% 1,000 ML 150 ML IV (06:23)
--- NOTE | 2023-01-25 07:06 | XRR_ITS ---
PROCEDURE INFORMATION: Exam: XR Abdomen Exam date and time: 01/25/2023 6:20 AM Age: 43 years old Clinical indication: Condition or disease; Intestinal condition; Obstruction; Prior surgery; Surgery date: 6+ months; Surgery type: --gb hyst hernia; Additional info: Sbo TECHNIQUE: Imaging protocol: Radiologic exam of the abdomen. Views: Frontal supine view of the abdomen. 1 View. COMPARISON: CT abdomen pelvis w con* [id number] 01/23/2023 4:04 PM FINDINGS: Tubes, catheters and devices: An enteric tube is noted with the distal tip below the level of the diaphragm in the region of the stomach. Gastrointestinal tract: Mildly prominent air-filled bowel loops measuring up to 3.9 cm in diameter, possibly small bowel, similar to prior exam. Intraperitoneal space: Surgical clips in the right upper quadrant noted. Surgical clips in the left lower quadrant noted. Bones/joints: Unremarkable. XR/XR KUB portable [id number] IMPRESSION: Mildly prominent air-filled bowel loops measuring up to 3.9 cm in diameter, possibly small bowel, similar to prior exam concerning for obstruction.
[2023-01-25] MEDS: pantoprazole 40 mg SDV IVP (08:03)
[2023-01-25] MEDS: ondansetron 2 mg/ML SDV 2 mL 4 MG IVP ×2 (08:03→20:14)
[2023-01-25] MEDS: lidocaine 1% 5 ML in potassium chloride premix 100 ML 25 ML IV (08:03)
[2023-01-25] MEDS: sennosides-docusate Tablet 1 TAB PO (08:05)
--- NOTE | 2023-01-25 10:14 | PM.PN ---
Subjective Subjective: Patient passed flatus 8-9 times NG tube discontinued Start clear liquids Abdomen soft No active emesis 100 mL of NG content in the container KUB showing 3.9 cm dilation of small bowel which is air-filled Vitals/I&O/Wt Last Vital Signs Temp 98.8 F 01/25/23 07:54 Pulse 84 01/25/23 07:54 Resp 16 01/25/23 07:54 BP 112/74 01/25/23 07:54 Pulse Ox 97 01/25/23 07:54 O2 Del Method Room Air 01/25/23 07:54 01/24/23 01/25/23 01/25/23 22:59 06:59 14:59 Intake Total 678.924 / 2815.174 726 4809.900 Balance 678.924 / 2815.174 4809.900 Weight last 48 hrs Weight 50.349 kg Weight 50.802 kg Physical Exam Narrative: Awake and alert GCS 15 Abdomen soft Bowel sounds normal present Signs of dehydration present No active distress No signs of peritonitis S1, S2 Doing well on room air Data 01/24/23 04:28 01/25/23 03:09 A&P Assessment and plan (1) Partial small bowel obstruction: (2) Hypokalemia: (3) Iron deficiency: (4) Chronic neck pain: (5) Multilevel cervical spondylosis without myelopathy: (6) Degenerative disc disease, cervical: (7) Numbness and tingling: Plan Partial small bowel obstruction Passing flatus Abdomen soft Bowel sound present KUB reviewed NG tube discontinued Clear liquids Continue TPN if patient is able to tolerate clear liquids today KUB still showing air distention of small bowel DVT prophylaxis Lovenox I will can discontinue D5 normal saline IV fluids Dr. Isbell notified Hypokalemia: Repleted Full code Clear liquid diet Attestations Medical Necessity Statement*: Continue medical management Diagnoses Partial small bowel obstruction K56.600 Hypokalemia E87.6 Iron deficiency E61.1 Chronic neck pain M54.2; G89.29 Multilevel cervical spondylosis without myelopathy M47.812 Degenerative disc disease, cervical M50.30 Numbness and tingling R20.0; R20.2
[2023-01-25] MEDS: LORazepam 1 mg Tablet PO ×2 (10:21→19:53)
[2023-01-25] MEDS: acetaminophen 500 mg Tablet PO (10:23)
[2023-01-25 10:44] LABS: Magnesium 2.1 mg/dL (1.7-2.3)
[2023-01-25] MEDS: sodium chloride 0.9% 1,000 ML 125 ML IV ×2 (13:34→19:53)
--- NOTE | 2023-01-25 15:14 | PC.NURSE ---
Notified Dr. Isbell of pt reproting a soft formed BM, Dr. Isbell with orders to advance diet to GI soft and notify Dr. Slade of BM.
[2023-01-25] MEDS: morphine IR 15 mg Tablet PO ×2 (17:31→23:07)
--- NOTE | 2023-01-25 17:31 | PM.PN ---
Subjective Subjective: Patient seen and examined. No further nausea or emesis. She is passing flatus and had a small BM. Tolerating clears. Vitals/I&O/Wt Last Vital Signs Temp 98.2 F 01/25/23 16:00 Pulse 84 01/25/23 16:00 Resp 16 01/25/23 16:00 BP 155/77 01/25/23 16:00 Pulse Ox 100 01/25/23 16:00 O2 Del Method Room Air 01/25/23 16:00 01/25/23 01/25/23 01/25/23 06:59 14:59 22:59 Intake Total 1993.726 / 4809.900 300 / 300 Balance 1993.726 / 4809.900 300 / 300 Weight last 48 hrs Weight 111 lb Physical Exam Narrative: General: No acute distress, awake alert and oriented x3 Abdomen: Soft, nontender, nondistended, no guarding rebound or masses Data 01/24/23 04:28 01/25/23 03:09 A&P Assessment and plan (1) Partial small bowel obstruction: Plan Resolving Full liquid diet Soft diet tomorrow Surgically stable for discharge when tolerating a soft diet Attestations Medical Necessity Statement*: Per primary Coding Level of Care Code Acute Code for Chg Fwd Diagnoses Partial small bowel obstruction K56.600
[2023-01-25] MEDS: magnesium hydroxide 30 mL UDC 15 ML PO (19:53)
[2023-01-25] MEDS: enoxaparin 40 mg/0.4 mL Syringe SUBCUT (19:53)
[2023-01-26] VITALS (7 sets, daily range): BP systolic 106–114; BP diastolic 70–72; PULSE 69–100; RESP 16–18; TEMP 36.4–36.8; O2SAT 97–99
[2023-01-26 03:39] LABS: Blood Urea Nitrogen 2 mg/dL (6-20); Calcium 7.1 mg/dL (8.5-10.5); Carbon Dioxide 20 mmol/L (22-29); Chloride 106 mmol/L (98-107); Glomerular Filtration Rate 385.9 mL/min (90-130); Glucose 117 mg/dL (65-115); Osmolality Calculated 277 mOsm/kg (285-295); Sodium 135 mmol/L (136-145)
[2023-01-26 03:43] LABS: Anion Gap 12.3 (5-19); Potassium 3.3 mmol/L (3.5-5.1)
[2023-01-26] MEDS: morphine IR 15 mg Tablet PO (05:08)
[2023-01-26] MEDS: sodium chloride 0.9% 1,000 ML 125 ML IV (05:09)
[2023-01-26] MEDS: ondansetron 2 mg/ML SDV 2 mL 4 MG IVP (05:11)
[2023-01-26] MEDS: morphine 4 mg/mL SDV 1 mL IVP (07:40)
[2023-01-26] MEDS: sennosides-docusate Tablet 1 TAB PO (08:41)
[2023-01-26] MEDS: pantoprazole 40 mg SDV IVP (08:41)
--- NOTE | 2023-01-26 09:04 | XR_ITS ---
WS: [id number] KUB, AP supine portable, 01/26/2023 Clinical Data: sbo Comparison: KUB, 01/25/2023 Findings: No abnormal intraabdominal masses or calcifications are seen. There is no dilatated small bowel or ev idence of obstruction. The amount of small bowel air is diminished greatly. The bladder is partly full. The nasogastric tube is no longer imaged in the stomach. There are monitor leads on the abdominal wall. There are surgica l clips in the right upper quadrant and left side of the abdomen unchanged. XR/XR KUB portable [id number] Impression: Decrease in small bowel air compared to yesterday.
--- NOTE | 2023-01-26 09:40 | P.DS_ITS ---
Discharge Providers Date of Admission: 01/23/23 17:47 Date of Discharge: January 26, 2023 Attending Provider at Admission: Mary Ann Slade MD Attending Provider at Discharge: Mary Ann Slade MD Primary Care Provider: ELOY Singer Diagnoses at Discharge Discharge Diagnosis (1) Partial small bowel obstruction: Status: Acute Reason for Visit Reason for Visit: abd pain Hospital Course Hospital Course 43-year female who was admitted to the hospital for chief complaint of recurrent nausea and vomiting she was diagnosed with partial bowel obstruction, with conservative management her symptoms resolved, patient was able to have more than 1 episode of bowel movement, she also tolerated milk of magnesia that caused loose stools, abdomen is softer, repeat KUB showed improvement in partial bowel obstruction pattern she is tolerating full liquid diet, she will be discharged home on instructions to continue full liquid diet for now and advance gradually, patient is stating that she had EGD and colonoscopy which were unremarkable in the past, she carries a significant history of multiple abdominal surgeries , hysterectomy, umbilical hernia repair with some complications. General surgery was consulted, with conservative management her symptoms have resolved. She will be discharged home with laxatives and lactulose. She may use Ensure to gain weight Please note patient received PPN while she had the NG tube to low intermittent suction because her last proper meal was around January 12, PPN will be discontinued before her discharge. Appreciate dietary consultation Physical Exam Narrative: Awake and alert Abdomen soft Bowel sound present Euvolemic Abdomen soft No active discomfort Chest pain absent S1, S2 Currently on room air Discharge Data Studies Completed and Pending Completed Studies During Hospitalization Category Date Time Status CT abdomen pelvis w con* [id number] Stat Cat Scan 01/23/23 15:57 Completed XR KUB portable [id number] Routine Exams 01/25/23 07:06 Completed XR KUB portable [id number] Stat Exams 01/23/23 15:03 Completed XR KUB portable [id number] Stat Exams 01/26/23 09:04 Completed XR chest 1V portable [id number] Stat Exams 01/24/23 22:36 Completed Radiology Impressions Abdomen/Pelvis CT 01/23/23 15:57 IMPRESSION: 1. Mild basilar atelectasis. 2. Previous cholecystectomy with prominence of the hepatic/bile duct post cholecystectomy, as noted with prior exam. 3. Suggestion of prior hysterectomy. 4. Findings suggestive of benign renal cysts. 5. Findings suggestive of partial or incomplete small bowel obstruction, with transitional point mid to lower left abdomen with suggestion of normal caliber of the distal ileum in relation to the remainder of the small bowel, with presence of fluid and air in the colon as well as partial oral contrast in the proximal colon. Mild small-bowel wall thickening also noted. Correlate clinically, as well. COMMENTS: Consistent with the [employer]'s Incidental Findings Committee white paper (J Am Grace Radiol 2018): Any incidental renal lesion less than 1 cm or classified as too small to characterize, or any incidental cystic renal lesion characterized as simple-appearing, is likely benign. No follow-up imaging is recommended for these lesions per consensus recommendations based on imaging criteria. ADDENDUM: 01/23/231712 Report was confirmed by SHAMIR Perez at 01/23/2023 5:11 PM CDT and has no questions. Chest X-Ray 01/24/23 22:36 IMPRESSION: 1. Bibasilar left greater than right atelectasis versus infiltrate. 2. Right-sided PICC line with tip at the atrial caval junction. KUB X-Ray 01/26/23 09:04 Impression: Decrease in small bowel air compared to yesterday. Laboratory Results WBC 9.7 10^3/uL (4.0-10.0) 01/24/23 04:28 RBC 3.41 10^6/uL (4.1-5.3) L 01/24/23 04:28 Hgb 9.7 g/dL (11.5-15.3) L 01/24/23 04:28 Hct 30.6 % (37.0-47.0) L 01/24/23 04:28 MCV 89.7 fl (81-99) D 01/24/23 04:28 MCH 28.4 pg (28.0-34.0) 01/24/23 04:28 MCHC 31.7 g/dL (30.0-36.0) D 01/24/23 04:28 RDW 17.3 % (12.1-15.1) H 01/24/23 04:28 Plt Count 484 10^3/cmm (130-400) H 01/24/23 04:28 MPV 8.7 fL (7.4-10.4) 01/24/23 04:28 Neut % (Auto) 61.5 % 01/24/23 04:28 Lymph % (Auto) 32.0 % 01/24/23 04:28 [place] % (Auto) 5.2 % 01/24/23 04:28 Eos % (Auto) 0.6 % 01/24/23 04:28 Baso % (Auto) 0.2 % 01/24/23 04:28 Neut # (Auto) 5.95 10^3/uL (1.8-7.7) 01/24/23 04:28 Lymph # (Auto) 3.1 10^3/uL (0.8-4.8) 01/24/23 04:28 [place] # (Auto) 0.5 10^3/uL (0.2-0.9) 01/24/23 04: Eos # (Auto) 0.1 10^3/uL (0.0-0.8) 01/24/23 04:28 Baso # (Auto) 0.0 10^3/uL (0.0-0.1) 01/24/23 04:28 Nucleated RBC % (auto) 0 % 01/24/23 04:28 Nucleated RBCs # 0.0 /100WBC 01/24/23 04:28 Sodium 135 mmol/L (136-145) L 01/26/23 03:06 Potassium 3.3 mmol/L (3.5-5.1) L 01/26/23 03:06 Chloride 106 mmol/L (98-107) 01/26/23 03:06 Carbon Dioxide 20 mmol/L (22-29) L 01/26/23 03:06 Anion Gap 12.3 (5-19) 01/26/23 03:06 BUN 2 mg/dL (6-20) L 01/26/23 03:06 Creatinine 0.2 mg/dL (0.5-0.9) L 01/26/23 03:06 GFR Calculation 385.9 mL/min (90-130) H 01/26/23 03:06 Glucose 117 mg/dL (65-115) H 01/26/23 03:06 Calculated Osmolality 277 mOsm/kg (285-295) L 01/26/23 03:06 Lactic Acid 1.1 mmol/L (0.5-2.2) 01/23/23 14:59 Calcium 7.1 mg/dL (8.5-10.5) L 01/26/23 03:06 Magnesium 2.1 mg/dL (1.7-2.3) 01/25/23 03:09 Total Bilirubin 0.2 mg/dL (0.15-1.2) 01/23/23 14:59 AST 16 U/L (0-32) 01/23/23 14:59 ALT 16 U/L (0-33) 01/23/23 14:59 Alkaline Phosphatase 149 U/L (35-105) H 01/23/23 14:59 Total Protein 7.1 g/dL (6.6-8.7) 01/23/23 14:59 Albumin 3.8 g/dL (3.5-5.2) 01/23/23 14:59 Globulin 3.3 g/dL (1.3-4.6) 01/23/23 14:59 Lipase 55 U/L (13-60) 01/23/23 14:59 Vitals Last Vital Signs Temp 97.5 F L 01/26/23 07:48 Pulse 85 01/26/23 07:48 Resp 18 01/26/23 07:48 BP 114/72 01/26/23 07:48 Pulse Ox 99 01/26/23 07:48 O2 Del Method Room Air 01/26/23 07:48 Discharge Plan Discharge Patient Disposition: Home Condition: Stable Prescriptions: New lactulose 10 gram/15 mL solution 10 g PO DAILY PRN (Reason: constipation) Qty: 237 0RF potassium chloride 10 mEq tablet extended release 10 meq PO DAILY Qty: 4 0RF metoclopramide HCl [Reglan] 5 mg tablet 5 mg PO DAILY Qty: 7 0RF Continued quetiapine [Seroquel] 400 mg tablet 400 mg PO BEDTIME Qty: 90 2RF diclofenac sodium 1 % gel 2 g TOPICAL QID PRN (Reason: Pain) Hold Instructions: Resume on 12/01/20. Rx Instructions: apply to neck and head lorazepam 1 mg tablet 1 mg PO TID PRN (Reason: anxiety attacks) Qty: 90 3RF albuterol sulfate [ProAir HFA] 90 mcg/actuation HFA aerosol inhaler 2 puff INHALATION Q4H PRN (Reason: shortness of breath or wheezing) Qty: 18 2RF magnesium oxide 500 mg capsule 500 mg PO BID Qty: 60 0RF Rx Instructions: OTC venlafaxine [Effexor XR] 75 mg capsule,extended release 24hr 75 mg PO QAM Qty: 30 3RF topiramate 100 mg tablet 100 mg PO QAM Qty: 90 0RF cyclobenzaprine 10 mg tablet 10 mg PO BID PRN (Reason: muscle spasm) Qty: 180 0RF promethazine 25 mg tablet 25 mg PO Q6H PRN (Reason: nausea and vomiting) Qty: 30 0RF sumatriptan succinate 100 mg tablet See Rx Instructions .ROUTE .COMPLEX Qty: 9 0RF Dose Instruction: TAKE ONE TABLET BY MOUTH AT ONSET of HEADACHE, MAY REPEAT DOSE in TWO hours if needed, max of TWO TABLETS in 24 hours Rx Instructions: TAKE ONE TABLET BY MOUTH AT ONSET of HEADACHE, MAY REPEAT DOSE in TWO hours if needed, max of TWO TABLETS in 24 hours pantoprazole [Protonix] 40 mg tablet,delayed release (DR/EC) 40 mg PO QAM montelukast [Singulair] 10 mg tablet 10 mg PO QAM polyethylene glycol 3350 [Miralax] 17 gram/dose powder 17 g PO DAILY PRN (Reason: Constipation) Discontinued lactulose 10 gram/15 mL solution 30 ml PO Q2H PRN (Reason: Constipation) Discharge Orders: Discharge Order (Routine); Ordered 01/26/23 Ordered By: Mary Ann Slade Referrals: Marko Wallace, [employer] [Primary Care Provider] - 7-10 days Discharge Diet: Advance as tolerated and Full LIquid Patient Instructions: Opioid Safety, Pain Management Discharge Attestations Time Spent in Discharge Care*: greater than 30 min Quality Metrics Clinical Quality Measures [ No reported AMI, CVA or VTE this stay] Coding Level of Care Code Acute Code for Chg Fwd Diagnoses Partial small bowel obstruction K56.600
[2023-01-26] MEDS: lidocaine 2% viscous 15 ML, aluminum-mag hydrox-simethicon 30 ML, sucralfate oral liq 1 GM PO (11:10)
== END 2023-01-26 11:45 | disposition home or self-care (01) | DRG 390 ==
LOC: ER 17:25 → MEDSURG 17:52
PROVIDERS: Admitting Provider Internal Medicine; Emergency Provider Family Medicine; PCP Nurse Practitioner; Visit Provider Internal Medicine
DX: K56.600 Partial intestinal obstruction, unspecified as to cause (principal); Z87.891 Personal history of nicotine dependence; F43.12 Post-traumatic stress disorder, chronic; K21.9 Gastro-esophageal reflux disease without esophagitis; D50.9 Iron deficiency anemia, unspecified; Z87.11 Personal history of peptic ulcer disease; M47.812 Spondylosis without myelopathy or radiculopathy, cervical region; K59.09 Other constipation; G89.29 Other chronic pain; E87.6 Hypokalemia; E86.0 Dehydration
CPT/HCPCS: 36415; 36569; 36592; 71045; 74018; 74177; 80048; 80053; 83605; 83690; 83735; 85025; 96361; 96365; 96372; 96375; 99285; C9113; J1650; J2270; J2405; J2550; J3480; J7030; J7040; J7042; Q9967

== ENCOUNTER → 2023-02-08 11:06 | Outpatient (BNVA) | payer OTHER, SELFPAY | PROVIDERS: PCP Nurse Practitioner; Visit Provider Nurse Practitioner | DX: E87.6 Hypokalemia (principal); K56.7 Ileus, unspecified | CPT/HCPCS: 80048; 85025 ==

== ENCOUNTER 2023-02-24 08:49 | Day surgery (SDC) | payer OTHER, SELFPAY ==
[2023-02-22 13:43] VITALS: BMI 20.5
[2023-02-24 09:05] VITALS: BP 94/63; PULSE 67; RESP 16; TEMP 37.1; O2SAT 100
[2023-02-24] MEDS: sodium chloride 0.9% 1,000 ML 30 ML IV (09:05)
--- NOTE | 2023-02-24 09:31 | P.ANESASSM_ITS ---
Pre-Anesthetic Assessment Height/Weight: Height 1.52 m Weight 47.627 kg Temp Pulse Resp BP Pulse Ox O2 Del Method 98.7 F 67 16 94/63 100 Room Air 02/24/23 09:05 02/24/23 09:05 02/24/23 09:05 02/24/23 09:05 02/24/23 09:05 02/24/23 09:05 Preop Diagnosis: dysphagia, gerd Operation Date: 02/24/23 10:00 Proposed Procedures p 89645 EGD W/BALOON DIALATION K21.9,R13.10(Not Applicable) - Fransico Isbell, DO Was Beta Rosie taken within 24 hours: N/A Was Clonidine taken within 24 hours: N/A Last intake: Intake Last Liquid Date 02/23/23 Last Liquid Time 20:00 Last Solid Date 02/23/23 Last Solid Time 17:00 Social No alcohol and No tobacco Exam alert, oriented x 3, clear to auscultation bilaterally and regular rate & rhythm Airway Submandibular: within normal limits Mallampati: Class I Comments: Comments: limited cervical ROM, limited mouth opening History/ROS No significant history except as noted Pulmonary None reported CV/HEM None reported None reported Hepatic None reported GI Gastroesophageal Reflux Disease Metabolic None reported Musc/skel Lower Back Pain neck pain Neuropsych Anxiety and Depression Anesthetic Plan ASA status: 2 Anesthesia: Anesthesia Evaluation and MAC Risk of > 500 ml blood loss (7ml/kg in children): Yes, adequate IV access and fluids planned Medications/Allergies Home Medications Medication Instructions Recorded Confirmed Last Taken Type quetiapine 400 mg tablet (Seroquel) 400 mg PO BEDTIME #90 tabs 05/25/22 02/24/23 02/23/23 Rx venlafaxine 75 mg capsule,extended 75 mg PO QAM #30 caps 06/13/22 02/24/23 02/24/23 Rx release 24 hr (Effexor XR) diclofenac sodium 1 % topical gel 2 g topical QID PRN Pain 06/28/22 02/24/23 02/23/23 History lorazepam 1 mg tablet 1 mg PO TID PRN anxiety attacks 07/19/22 02/24/23 02/23/23 Rx #90 tabs albuterol sulfate 90 mcg/actuation 2 puff inhalation Q4H PRN 08/18/22 02/24/23 02/23/23 Rx aerosol inhaler (ProAir HFA) shortness of breath or wheezing #18 grams cyclobenzaprine 10 mg tablet 10 mg PO BID PRN muscle spasm #180 12/14/22 02/24/23 02/23/23 Rx tabs topiramate 100 mg tablet 100 mg PO QAM #90 tabs 12/14/22 02/24/23 02/24/23 Rx promethazine 25 mg tablet 25 mg PO Q6H PRN nausea and 12/30/22 02/24/23 02/23/23 Rx vomiting #30 tabs magnesium oxide 500 mg capsule 500 mg PO BID #60 caps 01/20/23 02/24/23 02/23/23 Rx lactulose 10 gram/15 mL oral 10 g (15 mL) PO DAILY PRN 01/26/23 02/24/23 02/23/23 Rx solution constipation #237 mL polyethylene glycol 3350 17 17 g PO DAILY Constipation #510 01/29/23 02/24/23 02/23/23 Rx gram/dose oral powder (Miralax) grams montelukast 10 mg tablet 10 mg PO QAM #90 tabs 02/03/23 02/24/23 02/23/23 Rx (Singulair) potassium chloride 10 mEq 10 meq PO DAILY #30 tabs 02/08/23 02/24/23 02/23/23 Rx tablet,extended release pantoprazole 40 mg tablet,delayed 40 mg PO BID 6 weeks #84 tabs 02/21/23 02/24/23 02/23/23 Rx release (Protonix) metoclopramide HCl 5 mg tablet 5 mg PO Q6H PRN Nausea 02/22/23 02/24/23 02/23/23 History (Reglan) sumatriptan succinate 100 mg tablet See Rx Instructions .Route 02/22/23 02/24/23 02/23/23 History .COMPLEX PRN migraines Allergies Allergy/AdvReac Type Severity Reaction Status Date / Time Influenza Virus Vaccines Allergy Unknown Unknown Verified 02/24/23 09:01 ketorolac [From Toradol] Allergy Unknown Unknown Verified 02/24/23 09:01 Current Medications Generic Name Dose Route Start Last Admin Trade Name Freq PRN Reason Stop Dose Admin Sodium Chloride 1,000 mls @ 30 mls/hr 02/24/23 09:00 02/24/23 09:05 Sodium Chloride 0.9% IV 02/25/23 08:59 30 mls/hr .Q24H SHAHLA Administration PFSH Anesthesia Medical History Bereavement Mother Sep 03, 2017. Chronic neck pain Chronic peptic ulcer Chronic post-traumatic stress disorder Degenerative disc disease, cervical Environmental and seasonal allergies Esophagitis Gastritis Gastro-esophageal reflux disease without esophagitis History of PSVT (paroxysmal supraventricular tachycardia) Hypokalemia Iron deficiency Iron deficiency anemia Major depressive disorder, recurrent episode, moderate with anxious distress [facility] Multilevel cervical spondylosis without myelopathy Numbness and tingling Palpable mass of lower back Panic disorder without agoraphobia Partial small bowel obstruction Pelvic pain Psychiatric care SBO (small bowel obstruction) Weight loss Surgical History History of cholecystectomy (~2000) History of partial hysterectomy History of pelvic surgery due to adhesion History of right oophorectomy History of umbilical hernia repair Three different times 2004 x2, 2012 Family History Other Diabetes Heart disease Hypertension Social History Smoking and tobacco status: former smoker Second hand smoke exposure: No Smoking risk assessment/counseling performed?: No Alcohol intake: never Desire information about alcohol rehabilitation?: No Counseling given: No Substance/Drug Use: never Desire information about substance/drug rehabilitation?: No Counseling given: No Adopted: No Caregiver/support person: No Lives independently: Yes Household members: spouse and children Housing: House Marital status: Current occupational status: employed Current occupation: [employer] Do you think of yourself as: Straight/Heterosexual Current gender identity: Female Data Anesthesia Cardiac Studies: Sestamibi Stress Test (Cardiology) 06/18
--- NOTE | 2023-02-24 10:00 | W.PM.OPSUD ---
Surgery/Procedure H&P Update DATE OF PROCEDURE: February 24, 2023 DATE H&P PERFORMED: 02/21/23 H&P UPDATE INFORMATION: I have reviewed H&P completed within last 30 days, I have examined patient prior to procedure and No changes to prior documentation PREOP DIAGNOSIS: dysphagia, gerd PLANNED PROCEDURE: Operation Date: 02/24/23 10:00 Proposed Procedures p 14035 EGD W/MANJINDER DIALATION K21.9,R13.10(Not Applicable) - Fransico Isbell DO
[2023-02-24 10:21] VITALS: BP 107/56; PULSE 66; RESP 14; TEMP 36.3; O2SAT 96
[2023-02-24] MEDS: ondansetron 2 mg/ML SDV 2 mL 4 MG IVP (10:32)
[2023-02-24 10:33] VITALS: BP 93/57; PULSE 60; RESP 18; O2SAT 99
[2023-02-24 10:40] VITALS: BP 111/74; PULSE 61; RESP 18; O2SAT 100
--- NOTE | 2023-02-24 12:39 | ANE.PACU2 ---
Inpatient post-anesthesia follow up: Airway intact: Yes Vital signs: Temperature 97.3 F Pulse Rate 61 Respiratory Rate 18 Blood Pressure 111/74 Pulse Oximetry 100 Oxygen Delivery Me thod Room Air Oxygen Flow Rate Fraction of Inspir ed Oxygen Hydration adequate: Yes Nausea and vomiting: No Pain level: 2 Mental status: Baseline
== END 2023-02-24 11:00 | disposition home or self-care (01) ==
PROVIDERS: PCP Nurse Practitioner; Visit Provider Surgery
DX: R13.10 Dysphagia, unspecified (principal); K21.9 Gastro-esophageal reflux disease without esophagitis; K25.7 Chronic gastric ulcer without hemorrhage or perforation; B96.81 Helicobacter pylori [H. pylori] as the cause of diseases classified elsewhere; F41.9 Anxiety disorder, unspecified; F32.A Depression, unspecified; Z87.891 Personal history of nicotine dependence
CPT/HCPCS: 43239; 88305; 88342; 96374; J2405; J2704; J7030

== ENCOUNTER → 2023-03-14 10:36 | Outpatient (BNVA) | payer OTHER, SELFPAY | PROVIDERS: PCP Nurse Practitioner; Visit Provider Nurse Practitioner | DX: E87.6 Hypokalemia (principal) | CPT/HCPCS: 80048; 85025 ==

== ENCOUNTER → 2023-05-11 08:52 | Outpatient (BNVA) | payer OTHER, SELFPAY | PROVIDERS: PCP Nurse Practitioner; Visit Provider Obstetrics & Gynecology | DX: Z79.899 Other long term (current) drug therapy (principal); N94.10 Unspecified dyspareunia; Z90.710 Acquired absence of both cervix and uterus; Z90.721 Acquired absence of ovaries, unilateral | CPT/HCPCS: 76830; 80061; 83036 ==

== ENCOUNTER → 2023-06-06 11:27 | Outpatient (BNVA) | payer OTHER, SELFPAY | PROVIDERS: PCP Nurse Practitioner; Visit Provider Nurse Practitioner | DX: E87.6 Hypokalemia (principal); E61.1 Iron deficiency | CPT/HCPCS: 80053; 85025 ==

== ENCOUNTER 2023-07-04 07:55 | Day surgery (SDC) | payer OTHER, SELFPAY ==
[2023-06-30 11:41] LABS: Basophils % 0.4 %; Eosinophils # 0.2 10^3/uL (0.0-0.8); Eosinophils % 1.8 %; Hematocrit 35.9 % (36-47); Lymphocytes # 2.5 10^3/uL (0.8-4.8); Lymphocytes % 26.8 %; Mean Platelet Volume 9.8 fL (7.4-10.4); Monocytes # 0.3 10^3/uL (0.2-0.9); Monocytes % 3.6 %; Neutrophils # 6.16 10^3/uL (1.8-7.7); Nucleated Red Blood Cells % 0 %; Platelet Count 306 10^3/cmm (157-399); Red Cell Distribution Width 13.5 % (12.1-15.1); White Blood Count 9.21 10^3/uL (3.29-11.43)
[2023-06-30 11:59] LABS: Alanine Aminotransferase 13 U/L (0-33); Albumin Level 4.2 g/dL (3.5-5.2); Alkaline Phosphatase 64 U/L (35-105); Anion Gap 11.5 (5-19); Aspartate Amino Transferase 12 U/L (0-32); Blood Urea Nitrogen 17 mg/dL (6-20); Calcium 9.1 mg/dL (8.5-10.5); Carbon Dioxide 24 mmol/L (22-29); Chloride 106 mmol/L (98-107); Globulin 2.8 g/dL (1.3-4.6); Glomerular Filtration Rate 90.9 mL/min (90-130); Glucose 85 mg/dL (65-115); Osmolality Calculated 287 mOsm/kg (285-295); Potassium 3.5 mmol/L (3.5-5.1); Sodium 138 mmol/L (136-145); Total Bilirubin 0.2 mg/dL (0.15-1.2)
[2023-06-30 12:50] LABS: Glucose Urine UA Norm (Normal); Ketones Urine Negative (Negative); Protein Urine Neg (Negative); Urine Appearance SL Hazy (CLEAR); Urine Color Yellow (Yellow); pH Urine 6 (5-7)
[2023-06-30 12:51] LABS: Add Urine Microscopic? YES; Bacteria Urine TRACE /hpf; Bilirubin Urine Neg (Negative); Blood Urine Neg (Negative); Leukocyte Esterase Urine Negative (Negative); Nitrate Urine Negative (Negative); RBC Urine RARE /hpf (0-2); Urobilinogen Urine Norm (Negative)
[2023-07-04] VITALS (9 sets, daily range): BP systolic 102–133; BP diastolic 43–81; PULSE 70–90; RESP 15–20; TEMP 36.2–36.3; O2SAT 95–100; BMI 3261.9
[2023-07-04] MEDS: gabapentin 300 mg Capsule PO (08:11)
[2023-07-04] MEDS: scopolamine 1.5 Patch 1 PATCH TRANSDERMA (08:11)
[2023-07-04] MEDS: sodium chloride 0.9% 500 ML IV (08:12)
--- NOTE | 2023-07-04 08:12 | W.PM.OPSUD ---
Surgery/Procedure H&P Update DATE OF PROCEDURE: July 04, 2023 DATE H&P PERFORMED: 06/26/23 H&P UPDATE INFORMATION: I have reviewed H&P completed within last 30 days, I have examined patient prior to procedure and No changes to prior documentation PREOP DIAGNOSIS: chronic pelvic pain, dyspareunia PLANNED PROCEDURE: Operation Date: 07/04/23 09:40 Proposed Procedures p Diagnostic laparoscopy 66525,R10.2,N94.10(Not Applicable) - Michael Otero MD
[2023-07-04] MEDS: sodium chloride 0.9% 1,000 ML 100 ML IV (08:30)
--- NOTE | 2023-07-04 08:50 | ANES.PREANE2 ---
Pre-Anesthetic Assessment Height/Weight: Height 12.7 cm Weight 52.617 kg Temp Pulse Resp BP Pulse Ox O2 Del Method 97.3 F L 73 18 128/73 99 Room Air 07/04/23 08:13 07/04/23 08:13 07/04/23 08:13 07/04/23 08:13 07/04/23 08:13 07/04/23 08:13 Preop Diagnosis: chronic pelvic pain, dyspareunia Operation Date: 07/04/23 09:40 Proposed Procedures p Diagnostic laparoscopy 73693,R10.2,N94.10(Not Applicable) - Michael Otero MD Familial anesthetic complications: none Was Beta Rosie taken within 24 hours: N/A Was Clonidine taken within 24 hours: N/A Last intake: Intake Last Liquid Date 07/03/23 Last Liquid Time 20:00 Last Solid Date 07/03/23 Last Solid Time 18:00 Social No alcohol and No tobacco Exam alert, oriented x 3, clear to auscultation bilaterally and regular rate & rhythm Airway Mallampati: Class II Dentition: other (missing) GI Gastroesophageal Reflux Disease Anesthetic Plan ASA status: 2 Anesthesia: General Risk of > 500 ml blood loss (7ml/kg in children): No Medications/Allergies Home Medications Medication Instructions Recorded Confirmed Last Taken Type diclofenac sodium 1 % topical gel 2 g topical QID PRN Pain 06/28/22 06/30/23 07/03/23 History magnesium oxide 500 mg capsule 500 mg PO BID #60 caps 01/20/23 06/30/23 07/03/23 Rx polyethylene glycol 3350 17 17 g PO DAILY Constipation #510 01/29/23 06/30/23 06/30/23 Rx gram/dose oral powder (Miralax) grams sumatriptan succinate 100 mg See Rx Instructions PO .COMPLEX 03/02/23 06/30/23 06/20/23 Rx tablet (Imitrex) #10 tabs topiramate 100 mg tablet 100 mg PO QAM #90 tabs 03/02/23 06/30/23 07/03/23 Rx fremanezumab-vfrm 225 mg/1.5 mL 225 mg (1.5 mL) SUBCUT Q30D #1.5 mL 04/07/23 06/30/23 06/05/23 Rx subcutaneous auto-injector (Ajovy) promethazine 25 mg tablet 25 mg PO Q6H PRN nausea and 04/15/23 06/30/23 07/03/23 Rx vomiting #30 tabs lorazepam 1 mg tablet 1 mg PO TID PRN anxiety attacks 04/24/23 06/30/23 07/03/23 Rx #90 tabs quetiapine 400 mg tablet (Seroquel) 400 mg PO .830 pm #90 tabs 04/24/23 06/30/23 07/03/23 Rx quetiapine 50 mg tablet (Seroquel) 50 mg PO .830 pm #90 tabs 04/24/23 06/30/23 07/03/23 Rx venlafaxine 75 mg capsule,extended 75 mg PO QAM #90 caps 04/24/23 06/30/23 07/03/23 Rx release 24 hr (Effexor XR) albuterol sulfate 90 mcg/actuation 2 puff inhalation Q4H PRN 06/06/23 06/30/23 06/27/23 Rx aerosol inhaler (ProAir HFA) shortness of breath or wheezing #18 grams cyclobenzaprine 10 mg tablet 10 mg PO BID PRN muscle spasm #180 06/06/23 06/30/23 07/03/23 Rx tabs ferrous gluconate 324 mg (38 mg 324 mg PO DAILY 06/06/23 06/30/23 07/03/23 History iron) tablet montelukast 10 mg tablet 10 mg PO QAM #90 tabs 06/06/23 06/30/23 07/03/23 Rx (Singulair) pantoprazole 40 mg tablet,delayed 40 mg PO QAM #90 tabs 06/06/23 06/30/23 07/03/23 Rx release (Protonix) potassium chloride 10 mEq 10 meq PO DAILY #30 tabs 06/06/23 06/30/23 07/03/23 Rx tablet,extended release sucralfate 1 gram tablet (Carafate) 1 g PO .COMPLEX #120 tabs 06/06/23 06/30/23 07/03/23 Rx Allergies Allergy/AdvReac Type Severity Reaction Status Date / Time Influenza Virus Vaccines Allergy Unknown Unknown Verified 07/04/23 08:00 ketorolac [From Toradol] Allergy Unknown Unknown Verified 07/04/23 08:00 [facility] Anesthesia Medical History (Updated 06/10/23 @ 17:28 by ELOY Singer) Bereavement Mother Sep 03, 2017. Chronic neck pain Chronic peptic ulcer Chronic post-traumatic stress disorder Degenerative disc disease, cervical Environmental and seasonal allergies Esophagitis Gastritis Gastro-esophageal reflux disease without esophagitis History of PSVT (paroxysmal supraventricular tachycardia) Hypokalemia Iron deficiency Iron deficiency anemia Major depressive disorder, recurrent episode, moderate with anxious distress [facility] Multilevel cervical spondylosis without myelopathy Numbness and tingling Palpable mass of lower back Panic disorder without agoraphobia Partial small bowel obstruction Pelvic pain Psychiatric care SBO (small bowel obstruction) Weight loss Surgical History History of cholecystectomy (~1999) History of partial hysterectomy History of pelvic surgery due to adhesion History of right oophorectomy History of umbilical hernia repair Three different times 2004 x2, 2012 Family History Other Diabetes Heart disease Hypertension Social History Smoking and tobacco/nicotine status: former use of tobacco/nicotine Second hand smoke exposure: No Alcohol intake: never Substance/Drug Use: never Adopted: No Caregiver/support person: No Lives independently: Yes Household members: spouse and children Housing: House Marital status: Current occupational status: employed Current occupation: [employer] Do you think of yourself as: Straight/Heterosexual Current gender identity: Female Female Reproductive History Date of last menstrual period: 06/30/23 Data Anesthesia 06/30/23 10:30 06/30/23 10:30 Cardiac Studies: Sestamibi Stress Test (Cardiology) 06/18/20
[2023-07-04] MEDS: ceFAZolin 2,000 MG in sodium chloride 0.9% (plus) 50 ML 100 MG IV (08:54)
[2023-07-04] MEDS: BUPivacaine 0.5% INJ 30 mL INJECTION (09:30)
--- NOTE | 2023-07-04 09:47 | P.OP_ITS ---
Operative Report Date of procedure: July 04, 2023 Pre-op diagnosis: Chronic pelvic pain Post-op diagnosis: Same Post-op findings: Post hysterectomy with oophorectomy pelvis Procedure done: Diagnostic laparoscopy Specimens removed/disposition: None Pathology: None Surgeon: Michael Otero MD Estimated blood loss (mL): 5 IV fluids (mL): 300 Urine output (mL): 50 Complications: None Findings: Normal postoperative post hysterectomy pelvis. No adhesions Procedure: After informed consent, the patient was taken to the operating room where general anesthesia was administered. The patient was examined under anesthesia and found to have a normal uterus with normal adnexa. She was placed in the dorsal lithotomy position and prepped and draped in sterile fashion. Pre- Procedure Time-Out verifying the correct patient identity, correct procedure verified with consent, correct site and side, correct patient position, availability of correct implants and any special equipment or requirements was performed and acknowledge by the OR team. A Calderón catheter was placed. An open side speculum was placed in the vagina, and a sponge stick to the vaginal cuff and secured with hemostat. The speculum was removed from the vagina. An incision was made with a scalpel on the left upper quadrant and was carried down through the underlying fascia until the peritoneum was identified and entered. A 5 mm trocar and sleeve were admitted into the abdomen and pneumoperitoneum was attained with 4 liters of carbon dioxide. Laparoscopic confirmation of location was achieved, A second incision was made 3 cm above the symphysis pubis, and a 5 mm trocar and sleeve were admitted into the abdomen under direct, laparoscopic visualization without complication. A survey revealed normal abdominal anatomy, appendix was normal. The pelvic survey shows normal posthysterectomy findings. No adhesions where identified. A 5 mm blunt probe was advanced through the second trocar sleeve, and light manipulation of bowels to assess the cul de sac. A small peritoneal windows (Toby-Masters Window) noticed. But no other lesions idenfied. No other pathology or lesion noted. Carbon dioxide was allowed to escape from the abdomen. The instruments were removed, and skin cover with a bandage. The instruments were removed from the vagina, and excellent hemostasis was noted. The patient tolerated the procedure well, and sponge, lap and needle count were correct times two. The patient taken to the recovery room in good condition.
[2023-07-04] MEDS: ondansetron 2 mg/ML SDV 2 mL 4 MG IVP ×2 (10:08→10:13)
[2023-07-04] MEDS: HYDROcodone-acetaminophen 5-325 mg Tablet 1 TAB PO (10:44)
--- NOTE | 2023-07-04 12:00 | ANE.PACU2 ---
Inpatient post-anesthesia follow up: Airway intact: Yes Vital signs: Temperature 97.3 F Pulse Rate 75 Respiratory Rate 16 Blood Pressure 118/81 Pulse Oximetry 100 Oxygen Delivery Me thod Room Air Oxygen Flow Rate 6 Fraction of Inspir ed Oxygen Hydration adequate: Yes Nausea and vomiting: No Pain level: 1 Mental status: Baseline
== END 2023-07-04 12:03 | disposition home or self-care (01) ==
PROVIDERS: PCP Nurse Practitioner; Visit Provider Obstetrics & Gynecology
PROC: (CPT 49320; principal; 2023-07-04 09:30)
DX: R10.2 Pelvic and perineal pain (principal); G89.29 Other chronic pain; Z90.710 Acquired absence of both cervix and uterus; K21.9 Gastro-esophageal reflux disease without esophagitis; Z87.11 Personal history of peptic ulcer disease; Z87.891 Personal history of nicotine dependence
CPT/HCPCS: 49320; 36415; 80053; 81001; 85025; 86850; 86900; J0690; J1100; J2405; J2704; J3010; J3490; J7030; J7040

== ENCOUNTER 2023-07-10 11:43 | Outpatient (CLI) | payer OTHER, SELFPAY ==
--- NOTE | 2023-07-10 11:45 | US_ITS ---
WS: [id number] RIGHT upper quadrant, limited. HISTORY: Recent laparoscopic surgery. New painful swelling LEFT upper abdomen at the incision site. At the area of clinical concern is fluid encasing a hyperechoic mass measuring 2.2 x 2.5 x 0.7 cm. Th is hyperechoic area is most likely omentum to herniate through a defect in the abdominal wall. During Valsalva there is no change in position. No peristalsis is evident. There is encasing fluid. Patient is very painful at this area. IMPRESSION: Fluid encasing a hyperechoic focus corresponding to the palpable abnormality in the LEFT upper quadra nt. Favor this is probably omental herniation through a defect within the abdominal wall related to t he laparoscope. There is no peristalsis to suggest herniated bowel. This does not appear to be a devon jewell. If pain continues additional evaluation by CT would provide further information.
== END 2023-07-10 11:44 | disposition home or self-care (01) ==
LOC: RAD 11:43
PROVIDERS: PCP Nurse Practitioner; Visit Provider Obstetrics & Gynecology
DX: L76.82 Other postprocedural complications of skin and subcutaneous tissue (principal); R93.5 Abnormal findings on diagnostic imaging of other abdominal regions, including retroperitoneum
CPT/HCPCS: 76705

== ENCOUNTER 2023-07-18 11:57 | Day surgery (SDC) | payer OTHER, SELFPAY ==
--- NOTE | 2023-07-17 10:20 | ANES.PREANE2 ---
Pre-Anesthetic Assessment Height/Weight: Height 1.52 m Operation Date: 07/18/23 13:40 Proposed Procedures p Laparoscopic hernia reduction with incision revision [id number](Not Applicable) - Michael Otero MD Familial anesthetic complications: NOne Was Beta Rosie taken within 24 hours: N/A Was Clonidine taken within 24 hours: N/A Social No alcohol and No tobacco Exam alert, oriented x 3, clear to auscultation bilaterally and regular rate & rhythm Airway Mallampati: Class I Dentition: other (missing) GI Gastroesophageal Reflux Disease Anesthetic Plan ASA status: 2 Anesthesia: General Risk of > 500 ml blood loss (7ml/kg in children): No Medications/Allergies Home Medications Medication Instructions Recorded Confirmed Last Taken Type diclofenac sodium 1 % topical gel 2 g topical QID PRN Pain 06/28/22 07/17/23 07/03/23 History magnesium oxide 500 mg capsule 500 mg PO BID #60 caps 01/20/23 07/17/23 07/17/23 Rx polyethylene glycol 3350 17 17 g PO DAILY Constipation #510 01/29/23 07/17/23 07/17/23 Rx gram/dose oral powder (Miralax) grams sumatriptan succinate 100 mg See Rx Instructions PO .COMPLEX 03/02/23 07/17/23 07/16/23 Rx tablet (Imitrex) #10 tabs topiramate 100 mg tablet 100 mg PO QAM #90 tabs 03/02/23 07/17/23 07/17/23 Rx lorazepam 1 mg tablet 1 mg PO TID PRN anxiety attacks 04/24/23 07/17/23 07/03/23 Rx #90 tabs quetiapine 400 mg tablet (Seroquel) 400 mg PO .830 pm #90 tabs 04/24/23 07/17/23 07/16/23 Rx quetiapine 50 mg tablet (Seroquel) 50 mg PO .830 pm #90 tabs 04/24/23 07/17/23 07/16/23 Rx venlafaxine 75 mg capsule,extended 75 mg PO QAM #90 caps 04/24/23 07/17/23 07/17/23 Rx release 24 hr (Effexor XR) albuterol sulfate 90 mcg/actuation 2 puff inhalation Q4H PRN 06/06/23 07/17/23 06/27/23 Rx aerosol inhaler (ProAir HFA) shortness of breath or wheezing #18 grams cyclobenzaprine 10 mg tablet 10 mg PO BID PRN muscle spasm #180 06/06/23 07/17/23 07/03/23 Rx tabs ferrous gluconate 324 mg (38 mg 324 mg PO DAILY 06/06/23 07/17/23 07/16/23 History iron) tablet montelukast 10 mg tablet 10 mg PO QAM #90 tabs 06/06/23 07/17/23 07/17/23 Rx (Singulair) pantoprazole 40 mg tablet,delayed 40 mg PO QAM #90 tabs 06/06/23 07/17/23 07/17/23 Rx release (Protonix) potassium chloride 10 mEq 10 meq PO DAILY #30 tabs 06/06/23 07/17/23 07/17/23 Rx tablet,extended release sucralfate 1 gram tablet (Carafate) 1 g PO .COMPLEX #120 tabs 06/06/23 07/17/23 07/17/23 Rx fremanezumab-vfrm 225 mg/1.5 mL See Rx Instructions .Route 07/04/23 07/17/23 07/11/23 Rx subcutaneous auto-injector (Ajovy) .COMPLEX #1.5 mL promethazine 25 mg tablet 25 mg PO Q6H PRN nausea and 07/09/23 07/17/23 07/16/23 Rx vomiting #30 tabs Allergies Allergy/AdvReac Type Severity Reaction Status Date / Time Influenza Virus Vaccines Allergy Unknown Unknown Verified 07/17/23 10:06 ketorolac [From Toradol] Allergy Unknown Unknown Verified 07/17/23 10:06 [facility] Anesthesia Medical History Bereavement Mother Sep 03, 2017. Chronic neck pain Chronic peptic ulcer Chronic post-traumatic stress disorder Degenerative disc disease, cervical Environmental and seasonal allergies Esophagitis Gastritis Gastro-esophageal reflux disease without esophagitis History of PSVT (paroxysmal supraventricular tachycardia) Hypokalemia Iron deficiency Iron deficiency anemia Major depressive disorder, recurrent episode, moderate with anxious distress [place]chmerz Multilevel cervical spondylosis without myelopathy Numbness and tingling Palpable mass of lower back Panic disorder without agoraphobia Partial small bowel obstruction Pelvic pain Psychiatric care SBO (small bowel obstruction) Weight loss Surgical History History of cholecystectomy (~1999) History of partial hysterectomy History of pelvic surgery due to adhesion History of right oophorectomy History of umbilical hernia repair Three different times 2004 x2, 2013 Family History Other Diabetes Heart disease Hypertension Social History Smoking and tobacco/nicotine status: former use of tobacco/nicotine Second hand smoke exposure: No Alcohol intake: never Substance/Drug Use: never Adopted: No Caregiver/support person: No Lives independently: Yes Household members: spouse and children Housing: House Marital status: Current occupational status: employed Current occupation: [employer] Do you think of yourself as: Straight/Heterosexual Current gender identity: Female Data Anesthesia Cardiac Studies: Sestamibi Stress Test (Cardiology) 06/18/20
[2023-07-18] VITALS (11 sets, daily range): BP systolic 95–128; BP diastolic 43–81; PULSE 75–100; RESP 16–18; TEMP 36.7–37.3; O2SAT 97–100; BMI 22.4
--- NOTE | 2023-07-18 12:29 | W.PM.OPSUD ---
Surgery/Procedure H&P Update DATE OF PROCEDURE: July 18, 2023 DATE H&P PERFORMED: 07/13/23 H&P UPDATE INFORMATION: I have reviewed H&P completed within last 30 days, I have examined patient prior to procedure and No changes to prior documentation PREOP DIAGNOSIS: incision omental herniation PLANNED PROCEDURE: Operation Date: 07/18/23 13:30 Proposed Procedures p Laparoscopic hernia reduction with incision revision [id number](Not Applicable) - Michael Otero MD
[2023-07-18] MEDS: scopolamine 1.5 Patch 1 PATCH TRANSDERMA (12:59)
[2023-07-18] MEDS: sodium chloride 0.9% 500 ML IV (12:59)
[2023-07-18] MEDS: sodium chloride 0.9% 1,000 ML 30 ML IV (12:59)
--- NOTE | 2023-07-18 13:43 | ANES.PAUD2 ---
Pre-Anesthetic Update Pre-Anesthetic Assessment: Date of Surgery/Procedure: 07/18/23 Preop Diagnosis: incision omental herniation Proposed Procedure: Operation Date: 07/18/23 13:30 Proposed Procedures p Laparoscopic hernia reduction with incision revision [id number](Not Applicable) - Michael Otero MD Any changes to Pre-Anesthetic Assessment?: No Last Intake: Intake Last Liquid Date 07/17/23 Last Liquid Time 18:30 Last Solid Date 07/17/23 Last Solid Time 18:30 Vitals: Temperature 99.1 F 07/18/23 12:10 Temperature Source Temporal Artery S can 07/18/23 12:10 Pulse Rate 76 07/18/23 12:10 Respiratory Rate 16 07/18/23 12:10 Blood Pressure 115/73 07/18/23 12:10 Blood Pressure Vivi n 87 07/18/23 12:10 Pulse Oximetry 100 07/18/23 12:10 Oxygen Delivery Me thod Room Air 07/18/23 12:11 Exam: Pre-Anes Outpt Exam: alert, oriented x 3, clear to auscultation bilaterally and regular rate & rhythm Cardiac Studies: Sestamibi Stress Test (Cardiology) 06/18/20
[2023-07-18 14:35] LABS: Basophils % 0.4 %; Eosinophils # 0.2 10^3/uL (0.0-0.8); Eosinophils % 1.6 %; Hematocrit 35.4 % (36-47); Lymphocytes # 2.9 10^3/uL (0.8-4.8); Lymphocytes % 31.4 %; Mean Corpuscular HGB Conc 32.2 g/dL (30-55); Mean Corpuscular Volume 102.6 fl (85-98); Mean Platelet Volume 9.9 fL (7.4-10.4); Monocytes # 0.4 10^3/uL (0.2-0.9); Neutrophils # 5.73 10^3/uL (1.8-7.7); Neutrophils % 62.3 %; Nucleated Red Blood Cells % 0 %; Platelet Count 264 10^3/cmm (157-399); Red Blood Count 3.45 10^6/uL (3.85-5.65); Red Cell Distribution Width 13.4 % (12.1-15.1); White Blood Count 9.21 10^3/uL (3.29-11.43)
[2023-07-18 15:04] LABS: Add Urine Microscopic? YES; Bilirubin Urine Neg (Negative); Blood Urine Trace (Negative); Glucose Urine UA Norm (Normal); Ketones Urine 1+ (Negative); Leukocyte Esterase Urine Negative (Negative); Nitrate Urine Negative (Negative); Protein Urine Neg (Negative); Urine Appearance Clear (CLEAR); Urine Color Yellow (Yellow); Urobilinogen Urine Norm (Negative); pH Urine 5 (5-7)
[2023-07-18 15:09] LABS: RBC Urine 0-4 /hpf (0-2); Squamous Epithelial Cell Urine 0-4 /hpf (0-5); WBC Urine RARE /hpf (0-5)
[2023-07-18 15:10] LABS: Add Urine Culture? No; Mucus Urine 2+ /hpf
[2023-07-18] MEDS: ceFAZolin 2,000 MG in sodium chloride 0.9% (plus) 50 ML 100 MG IV (16:20)
[2023-07-18] MEDS: BUPivacaine 0.5% INJ 10 mL INJECTION (16:56)
--- NOTE | 2023-07-18 17:12 | P.OP_ITS ---
Operative Report Date of procedure: July 18, 2023 Pre-op diagnosis: incision omental herniation Post-op diagnosis: same Procedure done: reduction omental hernia, incision revision Surgeon: Michael Otero MD Estimated blood loss (mL): 5 IV fluids (mL): 700 Procedure: After informed consent, the patient was taken to the operating room where general anesthesia was administered. The patient was examined under anesthesia and found to have a normal uterus with normal adnexa. She was placed in the dorsal lithotomy position and prepped and draped in sterile fashion. Pre- Procedure Time-Out verifying the correct patient identity, correct procedure verified with consent, correct site and side, correct patient position, availability of correct implants and any special equipment or requirements was performed and acknowledge by the OR team. The right upper quadrant incision where the omental herniation was noted was open. The defect was identified and the fascia was reapproximated using a #0 vicryl in a running fashion. The subcu taneous tissue was reapproximated using 2-0 plain gut in interrupted fashion. The skin was closed with Insorbs subcuticular absorvable henrique. The patient tolerated the procedure well. Sponge, lap, needle and instrument counts were correct x2. The patient was taken to the recovery room in stable condition.
[2023-07-18] MEDS: fentaNYL 50 mcg/mL INJ 2mL IVP (17:17)
[2023-07-18] MEDS: ondansetron 2 mg/ML SDV 2 mL 4 MG IVP ×2 (17:22→17:29)
[2023-07-18] MEDS: HYDROcodone-acetaminophen 5-325 mg Tablet 2 TAB PO (18:19)
[2023-07-18] MEDS: HYDROcodone-acetaminophen 5-325 mg Tablet 1 TAB PO (18:19)
--- NOTE | 2023-07-18 18:20 | ANE.PACU2 ---
Inpatient post-anesthesia follow up: Airway intact: Yes Vital signs: Temperature 98.1 F Pulse Rate 91 Respiratory Rate 16 Blood Pressure 95/68 Pulse Oximetry 97 Oxygen Delivery Me thod Room Air Oxygen Flow Rate 6 Fraction of Inspir ed Oxygen Hydration adequate: Yes Nausea and vomiting: No Pain level: 1 Mental status: Baseline
== END 2023-07-18 18:24 | disposition home or self-care (01) ==
PROVIDERS: PCP Nurse Practitioner; Visit Provider Obstetrics & Gynecology
PROC: (CPT 49591; principal; 2023-07-18 13:20)
DX: K43.2 Incisional hernia without obstruction or gangrene (principal); K21.9 Gastro-esophageal reflux disease without esophagitis; Z87.891 Personal history of nicotine dependence
CPT/HCPCS: 49591; 81001; 85025; 86850; 86900; J0690; J1100; J1200; J2250; J2405; J2704; J2710; J3010; J3490; J7030; J7040

== ENCOUNTER → 2023-08-22 10:07 | Outpatient (BNVA) | payer OTHER, SELFPAY | PROVIDERS: PCP Nurse Practitioner; Visit Provider Nurse Practitioner | DX: K21.9 Gastro-esophageal reflux disease without esophagitis | CPT/HCPCS: 83550; 86003 ==

== ENCOUNTER → 2023-08-25 14:24 | Outpatient (BNVA) | payer OTHER, SELFPAY | PROVIDERS: PCP Nurse Practitioner; Visit Provider Obstetrics & Gynecology | DX: R53.83 Other fatigue (principal) | CPT/HCPCS: 83001 ==

== ENCOUNTER → 2023-11-07 10:27 | Outpatient (BNVA) | payer OTHER, SELFPAY | PROVIDERS: PCP Nurse Practitioner; Visit Provider Nurse Practitioner | DX: Z13.6 Encounter for screening for cardiovascular disorders (principal); E87.6 Hypokalemia | CPT/HCPCS: 80053; 80061; 85025 ==

== ENCOUNTER → 2023-11-08 10:25 | Outpatient (BNVA) | payer OTHER, SELFPAY | PROVIDERS: PCP Nurse Practitioner; Visit Provider Nurse Practitioner | DX: M79.672 Pain in left foot (principal) | CPT/HCPCS: 73630 ==

== ENCOUNTER → 2024-04-04 08:47 | Outpatient (BNVA) | payer OTHER, SELFPAY | PROVIDERS: PCP Nurse Practitioner; Visit Provider Nurse Practitioner | DX: E61.1 Iron deficiency (principal) | CPT/HCPCS: 83540 ==

== ENCOUNTER → 2024-04-09 10:05 | Outpatient (BNVA) | payer OTHER, SELFPAY | PROVIDERS: PCP Nurse Practitioner; Visit Provider Nurse Practitioner | DX: Z91.018 Allergy to other foods (principal) | CPT/HCPCS: 86003; 86008 ==

== ENCOUNTER 2024-05-14 11:00 | Outpatient (CLI) | payer OTHER, SELFPAY ==
--- NOTE | 2024-05-14 11:00 | MM_ITS ---
WS: [id number] BILATERAL 3D TOMOSYNTHESIS DIGITAL SCREENING MAMMOGRAPHY WITH CAD CLINICAL INFORMATION: Z12.31 - Encounter for screening mammogram for malignant ... HISTORY: Screening mammogram. No current complaints. COMPARISON: 06/09/2022 TECHNIQUE: Bilateral CC and MLO views. FINDINGS: The breasts are composed of heterogeneous fibroglandular density tissue, which can limit the detectio n of small underlying mass lesions. No suspicious mass, asymmetry, calcifications, or architectural d istortion. No evidence of malignancy. MM/[place] [id number] IMPRESSION: DENSITY:The breasts are heterogeneously dense, which may obscure small masses. BI-RADS: 1 - Negative FOLLOW UP: 1 Year Follow-up Recommend return to annual screening mammography.
== END 2024-05-14 11:01 | disposition home or self-care (01) ==
PROVIDERS: PCP Nurse Practitioner; Visit Provider Nurse Practitioner
DX: Z12.31 Encounter for screening mammogram for malignant neoplasm of breast (principal); R92.333 Mammographic heterogeneous density, bilateral breasts
CPT/HCPCS: 77063; 77067

== ENCOUNTER → 2024-06-25 10:24 | Outpatient (BNVA) | payer OTHER, SELFPAY | PROVIDERS: PCP Nurse Practitioner; Visit Provider Nurse Practitioner | DX: Z91.018 Allergy to other foods (principal) | CPT/HCPCS: 86003 ==

== ENCOUNTER → 2024-10-02 08:34 | Outpatient (BNVA) | payer OTHER, SELFPAY | PROVIDERS: PCP Nurse Practitioner; Visit Provider Nurse Practitioner | DX: R10.10 Upper abdominal pain, unspecified (principal) | CPT/HCPCS: 80053; 81000; 85025 ==

== ENCOUNTER → 2024-11-05 13:12 | Outpatient (BNVA) | payer OTHER, SELFPAY | PROVIDERS: PCP Nurse Practitioner; Visit Provider Nurse Practitioner Psychiatric/Mental Health | DX: Z79.899 Other long term (current) drug therapy (principal) | CPT/HCPCS: 80061; 82306; 83036 ==

== ENCOUNTER → 2024-11-14 12:28 | Outpatient (BNVA) | payer OTHER, SELFPAY | PROVIDERS: PCP Nurse Practitioner; Visit Provider Specialist | DX: G43.711 Chronic migraine without aura, intractable, with status migrainosus (principal); D75.89 Other specified diseases of blood and blood-forming organs | CPT/HCPCS: 36415; 82607; 82746; 84439; 84443 ==

== ENCOUNTER 2024-12-02 12:23 | Outpatient (CLI) | payer OTHER, SELFPAY ==
--- NOTE | 2024-12-02 12:30 | MM_ITS ---
WS: [id number] LEFT 3D TOMOSYNTHESIS DIGITAL MAMMOGRAPHY WITH CAD CLINICAL INFORMATION: N64.4 - Mastodynia HISTORY: LEFT breast pain COMPARISON: 2023 TECHNIQUE: 3 views of the left breast were obtained. FINDINGS: The left breast is composed of heterogeneous fibroglandular density tissue, which can limit the detection of small underlying mass lesions. Dense parenchymal tissue deep to the pain marker. Ultrasound of this area is pending. ULTRASOUND BREAST LEFT TECHNIQUE: Ultrasound left breast focused area of concern. CLINICAL INFORMATION: N64.4 - Mastodynia FINDINGS: Ultrasound LEFT breast area of concern4 o'clock position 3 cm from the nipple. Normal underlying parenchymal tissue. Dense shadowing rib is visualized deep to the area of concern. No other abnormalities. No suspicious lesions to target for biopsy. MM/MM diag LT tomosynthesis [id number] IMPRESSION: DENSITY: The breasts are heterogeneously dense, which may obscure small masses. BI-RADS: 2 - Benign FOLLOW UP: 1 Year Follow-up Recommend return to annual screening mammography.
--- NOTE | 2024-12-02 13:09 | US_ITS ---
WS: [id number] LEFT 3D TOMOSYNTHESIS DIGITAL MAMMOGRAPHY WITH CAD CLINICAL INFORMATION: N64.4 - Mastodynia HISTORY: LEFT breast pain COMPARISON: 2023 TECHNIQUE: 3 views of the left breast were obtained. FINDINGS: The left breast is composed of heterogeneous fibroglandular density tissue, which can limit the detection of small underlying mass lesions. Dense parenchymal tissue deep to the pain marker. Ultrasound of this area is pending. ULTRASOUND BREAST LEFT TECHNIQUE: Ultrasound left breast focused area of concern. CLINICAL INFORMATION: N64.4 - Mastodynia FINDINGS: Ultrasound LEFT breast area of concern4 o'clock position 3 cm from the nipple. Normal underlying parenchymal tissue. Dense shadowing rib is visualized deep to the area of concern. No other abnormalities. No suspicious lesions to target for biopsy. US/US breast LT limited* [id number] IMPRESSION: DENSITY: The breasts are heterogeneously dense, which may obscure small masses. BI-RADS: 2 - Benign FOLLOW UP: 1 Year Follow-up Recommend return to annual screening mammography.
== END 2024-12-02 12:24 | disposition home or self-care (01) ==
PROVIDERS: PCP Nurse Practitioner; Visit Provider Obstetrics & Gynecology
DX: N64.4 Mastodynia (principal); R92.333 Mammographic heterogeneous density, bilateral breasts
CPT/HCPCS: 76642; 77061; G0279

== ENCOUNTER → 2025-01-15 09:57 | Outpatient (BNVA) | payer OTHER, SELFPAY | PROVIDERS: PCP Nurse Practitioner; Visit Provider Nurse Practitioner | DX: E87.6 Hypokalemia (principal) | CPT/HCPCS: 80053 ==

== ENCOUNTER → 2025-02-17 09:20 | Outpatient (BNVA) | payer OTHER, SELFPAY | PROVIDERS: PCP Nurse Practitioner; Referring Provider Specialist; Visit Provider Internal Medicine | DX: H53.459 Other localized visual field defect, unspecified eye (principal); R51.9 Headache, unspecified; E23.7 Disorder of pituitary gland, unspecified; R79.89 Other specified abnormal findings of blood chemistry | CPT/HCPCS: 36415; 82533; 84146; 84305; 84439; 84443 ==

== ENCOUNTER 2025-02-24 15:55 | Outpatient (CLI) | payer OTHER, SELFPAY ==
--- NOTE | 2025-02-24 16:00 | MR_ITS ---
WS: [id number] MRI HEAD WITHOUT AND WITH GADOLINIUM ENHANCEMENT WITH PITUITARY PROTOCOL. TECHNIQUE: Sagittal T1, T2 axial, T2 axial FLAIR, axial susceptibility weighted imaging, axial diffusion weighted images, and coronal T2 images were obtained. Pre and post-T1 axial and post T1 coronal images. ADC and FSPGR images. Pituitary protocol utilized. Dynamic pituitary protocol performed CLINICAL INFORMATION: Headaches for 1 month. Peripheral vision loss. COMPARISON: None. FINDINGS: No evidence of restricted diffusion to suggest acute ischemia. Ventricular system and basal cisterns are patent. No suspicious intracranial signal abnormalities. Normal vascular flow voids at the skull base. No extra-axial fluid collections. Paranasal sinuses are well aerated. No hemosiderin on the anatoliy ceptibility weighted images. Normal optic chiasm and pituitary infundibulum. No evidence of sellar or suprasellar mass. Normal homogeneous pituitary enhancement. No evidence of microadenoma. No abnormal gadolinium enhancement. Incidental benign venous angioma LEFT cerebellum. MR/MR pituitary wo/w con* [id number] IMPRESSION: 1. No evidence of sellar or suprasellar mass. No evidence of microadenoma. 2. No restricted diffusion to suggest acute ischemia. 3. No suspicious intracranial signal abnormalities. 4. No abnormal gadolinium enhancement. 5. No other suspicious findings.
== END 2025-02-24 15:56 | disposition home or self-care (01) ==
LOC: RAD 15:56
PROVIDERS: PCP Nurse Practitioner; Visit Provider Internal Medicine
DX: H53.459 Other localized visual field defect, unspecified eye (principal); R51.9 Headache, unspecified; E23.7 Disorder of pituitary gland, unspecified; R79.89 Other specified abnormal findings of blood chemistry; R93.0 Abnormal findings on diagnostic imaging of skull and head, not elsewhere classified
CPT/HCPCS: 70553

== ENCOUNTER 2025-04-21 08:09 | Outpatient (CLI) | payer OTHER, SELFPAY ==
[2025-04-21 09:17] LABS: Thyroid Stimulating Hormone 2.04 uIU/mL (0.27-4.20)
[2025-04-21 09:50] LABS: Free T4 Free Thyroxine 0.59 ng/dL (0.82-1.77)
== END 2025-04-21 08:10 | disposition home or self-care (01) ==
PROVIDERS: PCP Nurse Practitioner; Visit Provider Internal Medicine
DX: E55.9 Vitamin D deficiency, unspecified (principal); E03.9 Hypothyroidism, unspecified
CPT/HCPCS: 36415; 82306; 84439; 84443

== ENCOUNTER → 2025-06-19 15:46 | Outpatient (BNVA) | payer OTHER, SELFPAY | PROVIDERS: PCP Nurse Practitioner; Visit Provider Nurse Practitioner | DX: E55.9 Vitamin D deficiency, unspecified (principal); E61.1 Iron deficiency; R79.89 Other specified abnormal findings of blood chemistry | CPT/HCPCS: 80053; 82306; 82607; 83550; 83735; 84439; 84443; 84481 ==

== ENCOUNTER 2025-07-15 11:58 | Outpatient (CLI) | payer OTHER, SELFPAY ==
--- NOTE | 2025-07-15 12:00 | MM_ITS ---
WS: [id number] BILATERAL 3D TOMOSYNTHESIS DIGITAL SCREENING MAMMOGRAPHY WITH CAD CLINICAL INFORMATION: Z12.31 - Encounter for screening mammogram for malignant ... HISTORY: Screening mammogram. No current complaints. COMPARISON: 2023 TECHNIQUE: Bilateral CC and MLO views. FINDINGS: The breasts are composed of heterogeneous fibroglandular density tissue, which can limit the detection of small underlying mass lesions. No suspicious mass, asymmetry, calcifications, or architectural distortion. No evidence of malignancy. Incidental punctate calcifications LEFT breast MM/MM Psychiatric tomosynthesis [id number] IMPRESSION: DENSITY: The breasts are heterogeneously dense, which may obscure small masses. BI-RADS: 2 - Benign FOLLOW UP: 1 Year Follow-up Recommend return to annual screening mammography.
== END 2025-07-15 11:59 | disposition home or self-care (01) ==
LOC: MOBLMAM 11:59
PROVIDERS: PCP Nurse Practitioner; Visit Provider Nurse Practitioner
DX: Z12.31 Encounter for screening mammogram for malignant neoplasm of breast (principal); R92.333 Mammographic heterogeneous density, bilateral breasts; R92.323 Mammographic fibroglandular density, bilateral breasts; R92.1 Mammographic calcification found on diagnostic imaging of breast
CPT/HCPCS: 77063; 77067